=== PATIENT | male | born 1965 | race American Indian/Alaskan Native ===

== ENCOUNTER 2018-12-07 20:19 | Inpatient (IN) | payer MEDICARE ==
[2018-12-07 21:22] LABS: Hematocrit 38.2 % (35.5-45.6); Hemoglobin 12.6 gm/dl (11.8-15.2); Mean Corpuscular HGB Conc 33 % (32-34); Mean Corpuscular Volume 96 fl (84-94); Platelet Count 111 K/mm3 (140-440); Red Blood Count 3.98 M/mm3 (3.65-5.03); Red Cell Distribution Width 16.9 % (13.2-15.2)
[2018-12-07 21:39] LABS: Albumin 4.1 g/dL (3.9-5); Calcium 8.8 mg/dL (8.4-10.2)
[2018-12-07] MEDS ORDERED: PROVENTIL IH ONE (22:13)
[2018-12-07] MEDS ORDERED: APRESOLINE IV ONE (22:15)
[2018-12-07] MEDS ORDERED: KIONEX PO ONE (22:15)
[2018-12-07] MEDS ORDERED: LASIX IV ONE (22:15)
[2018-12-07] MEDS ORDERED: HumuLIN R IV ONE (22:15)
[2018-12-07] MEDS ORDERED: CALCIUM GLUCONATE 1,000 MG in NACL 0.9% 100 ML IV ONE (22:15)
[2018-12-07] MEDS ORDERED: D50W (25GM) Syringe IV ONE (22:15)
--- NOTE | 2018-12-07 22:20 | Emergency Department Report ---
ED General Adult HPI - General Chief complaint: Dyspnea/Respdistress Stated complaint: TIMOTHY Time Seen by Provider: 12/07/18 21:32 Source: patient, EMS (ems notes not available at time of chart dictation), RN notes reviewed Mode of arrival: Stretcher Limitations: Physical Limitation - History of Present Illness Initial comments: This is a 53-year-old gentleman. He does not known to this provider previously. The patient does not have a local primary care doctor or social services manager, he is visiting from [place]. His past medical history includes morbid obesity, sleep apnea, hypertension, end-stage renal disease on dialysis. He reports that he was last dialyzed this past Friday. It is currently Friday morning. He presented yesterday with a complaint of pain and the shortness of breath, wheezing, lower extremity edema. Symptoms constant, worse with physical exertion and decreased with rest. He also complains of chronic gluteal pain for 6-7 years. In the emergency room, found to be hypertensive, tachycardic, hyperkalemic, uremic, and azotemic. Potassium is noted to be 6. Blood pressure initially 218/140 systolic. Also found to have evidence of fluid overload, manifest by lower extremity edema, crackles, and hypoxia. Patient treated for hyperkalemia, fluid overload, and hypertensive urgency. Contacted nephrology on-call, Dr. Oconnor, who will arrange for urgent/emergent dialysis. Case presented to Hospital physician, Dr. Curiel, who has accepted the patient to the medical service. Explained that patient would need to be admitted to the hospital for blood pressure control, diuresis, and emergent dialysis for the above. The patient verbalized understanding. -: Gradual Location: buttocks, left, right, lower extremity Consistency: constant Improves with: rest Worsens with: movement - Related Data Allergies Allergy/AdvReac Type Severity Reaction Status Date / Time No Known Allergies Allergy Verified 12/07/18 22:19 ED Review of Systems ROS: Stated complaint: TIMOTHY Other details as noted in HPI Constitutional: denies: fever Eyes: denies: eye discharge ENT: congestion Respiratory: shortness of breath, wheezing Cardiovascular: edema Gastrointestinal: denies: vomiting Musculoskeletal: myalgia Skin: lesions (chronic gluteal lesion) Neurological: weakness Psychiatric: anxiety ED Past Medical Hx - Past Medical History Previous Medical History?: Yes Hx Hypertension: Yes Hx Diabetes: Yes Hx Renal Disease: Yes - Surgical History Past Surgical History?: Yes Additional Surgical History: dialysis access, Right knee surgery - Social History Smoking Status: Never Smoker Substance Use Type: None ED Physical Exam - General Limitations: No Limitations, Physical Limitation General appearance: alert, obese - Head Head exam: Present: atraumatic, normocephalic - Eye Eye exam: Present: normal appearance, EOMI. Absent: nystagmus - ENT ENT exam: Present: normal exam, normal orophraynx, mucous membranes moist, normal external ear exam - Neck Neck exam: Present: normal inspection, full ROM. Absent: tenderness, meningismus - Respiratory Respiratory exam: Present: respiratory distress, rales - Cardiovascular Cardiovascular Exam: Present: normal rhythm, tachycardia, normal heart sounds. Absent: systolic murmur, diastolic murmur, rubs, gallop - GI/Abdominal GI/Abdominal exam: Present: soft, distended. Absent: tenderness, guarding, rebound, rigid - Rectal Rectal exam: Present: normal inspection (there is a chronic appearing sacral wound, with no redness, pus or streaking. Chaperoned by nurse Alfred armas) - Extremities Exam Extremities exam: Present: normal inspection, full ROM, pedal edema, other (2+ pulses noted in the bilateral upper, lower extremities. Compartments soft. No long bony tenderness. The pelvis is stable.). Absent: tenderness, calf tenderness - Back Exam Back exam: Present: normal inspection, full ROM. Absent: tenderness, CVA tenderness (R), CVA tenderness (L), paraspinal tenderness, vertebral tenderness - Neurological Exam Neurological exam: Present: alert, other (Extraocular movements intact. Tongue midline. No facial droop. Facial sensation intact to light touch in the V1, V2, V3 distribution bilaterally. 5 and 5 strength in 4 extremities.. Sensation is intact to light touch in 4 extremities.). Absent: motor sensory deficit - Psychiatric Psychiatric exam: Present: normal affect, normal mood - Skin Skin exam: Present: warm, dry, intact, normal color. Absent: rash ED Course Vital Signs 12/07/18 21:16 Temperature 99.5 F Pulse Rate 92 H Respiratory 22 Rate Blood Pressure 173/94 [Right] O2 Sat by Pulse 94 Oximetry ED Medical Decision Making - Lab Data Result diagrams: 12/07/18 20:56 12/07/18 20:56 Vital Signs 12/07/18 21:16 Temperature 99.5 F Pulse Rate 92 H Respiratory 22 Rate Blood Pressure 173/94 [Right] O2 Sat by Pulse 94 Oximetry Lab Results 12/07/18 12/07/18 Range/Units 20:56 20:56 WBC 10.3 (4.5-11.0) K/mm3 RBC 3.98 (3.65-5.03) M/mm3 Hgb 12.6 (11.8-15.2) gm/dl Hct 38.2 (35.5-45.6) % MCV 96 H (84-94) fl MCH 32 (28-32) pg MCHC 33 (32-34) % RDW 16.9 H (13.2-15.2) % Plt Count 111 L (140-440) K/mm3 Lymph % (Auto) Remedial Reading Teacher [employer] % (Auto) Remedial Reading Teacher Eos % (Auto) Remedial Reading Teacher Baso % (Auto) Remedial Reading Teacher Lymph # Remedial Reading Teacher [employer] # Remedial Reading Teacher Eos # Remedial Reading Teacher Baso # Remedial Reading Teacher Seg Neutrophils % Remedial Reading Teacher Seg Neutrophils # Remedial Reading Teacher Sodium 136 L (137-145) mmol/L Potassium 6.0 H (3.6-5.0) mmol/L Chloride 93.7 L (98-107) mmol/L Carbon Dioxide 20 L (22-30) mmol/L Anion Gap 28 mmol/L BUN 57 H (9-20) mg/dL Creatinine 11.8 H (0.8-1.5) mg/dL Estimated GFR 5 ml/min BUN/Creatinine Ratio 5 % Glucose 164 H (75-100) mg/dL Calcium 8.8 (8.4-10.2) mg/dL Total Bilirubin 0.40 (0.1-1.2) mg/dL AST 21 (5-40) units/L ALT 19 (7-56) units/L Alkaline Phosphatase 92 (35-129) units/L Total Protein 8.8 H (6.3-8.2) g/dL Albumin 4.1 (3.9-5) g/dL Albumin/Globulin Ratio 0.9 % - EKG Data -: EKG Interpreted by Tn EKG shows normal: sinus rhythm Rate: tachycardia - EKG Data When compared to previous EKG there are: previous EKG unavailable 12/08/18 00:46 This is a sinus tachycardia, 108 bpm, normal axis, QTC 464 ms, atrial enlargement, poor r wave progression, the EKG is abnormal, the EKG is not consistent with ST elevation myocardial infarction - Radiology Data Radiology results: report reviewed, image reviewed Print Report Referring Physician: ANNALISE CROSS Patient Name: ALFRED RODRIGEZ Date of : 1965 Sex: Male Report Date: 2018-12-07 Report Status: Finalized Findings [facility] [address] [place] [address] XRay Report Signed Patient: ALFRED RODRIGEZ MR#: [id number] 53 : 1965 Acct:[id number] Age/Sex: 53 / M ADM Date: 12/07/18 Loc: ED Attending Dr: Ordering Physician: ANNALISE CROSS MD Date of Service: 12/07/18 Procedure(s): XR chest 1V ap Accession Number(s): [id number] cc: ANNALISE CROSS MD Fluoro Time In Minutes: CHEST 1 VIEW INDICATION: chf COMPARISON: None FINDINGS: Support devices: Right subclavian line projected over the superior vena cava. Heart: Mildly enlarged Lungs/Pleura: No acute pulmonary or pleural findings. IMPRESSION: 1. Mild cardiomegaly. Suboptimal inspiration, but no convincing evidence of pulmonary edema or other acute disease. Signer Name: David Schultz MD Signed: 12/07/2018 11:21 PM Workstation Name: [id number] Transcribed By: TM Dictated By: David Schultz MD Electronically Authenticated By: David Schultz MD Signed Date/Time: 12/07/18 2321 - Medical Decision Making Differential diagnosis, including not limited to: Hypertensive urgency, uremia, azotemia, pulmonary hypertension, obstructive sleep apnea, fluid overload Assessment and plan: 53-year-old gentleman with hyperkalemia, hypertensive urgency, physical exam evidence of fluid overload, requires admission to the medical service for diuresis, and medical optimization. Critical Care Time: Yes Critical care time in (mins) excluding proc time.: 35 Critical care attestation.: If time is entered above; I have spent that time in minutes in the direct care of this critically ill patient, excluding procedure time. ED Disposition Clinical Impression: ESRD (end stage renal disease), Acute hyperkalemia, Volume overload, Malignant hypertensive urgency Disposition: DC-09 OP ADMIT IP TO THIS HOSP Is pt being admited?: Yes Condition: Fair
[2018-12-07] MEDS ORDERED: NACL 0.9% 100 ML IV PRN (23:20)
[2018-12-07] MEDS ORDERED: ATIVAN IV ONE (23:21)
[2018-12-07] MEDS ORDERED: APRESOLINE IV PRN (23:21)
--- NOTE | 2018-12-07 23:22 | History and Physical Report ---
History of Present Illness Date of examination: 12/07/18 History of present illness: 53-year-old man a history of hypertension, diabetes, end-stage renal disease on dialysis Friday, Friday, Friday, seen emergency room complaining of shortness of breath and generalized swelling. The patient is from [place], last dialysis was Friday Review Of Systems: Constitutional: no weight loss, fever, chills Ears, eyes, nose, mouth and throat: no nasal congestion, no nasal discharge, no sinus pressure, blurry vision, diplopia Neck: No neck pain or rigidity. Cardiovascular: No palpitations, chest pain Respiratory: No cough Gastrointestinal: No hematochezia, abdominal pain Genitourinary : no dysuria, frequency , hematuria Musculoskeletal: no muscle ache , joint pain Integumentary: no rash, no pruritis Neurological: no parathesias, focal weakness Endocrine: no cold or heat intolerance, no polyuria or polydipsia Hematologic/Lymphatic: no easy bruising, no easy bleeding, no gland swelling Allergic/Immunologic: no urticaria, no angioedema. PAST MEDICAL HISTORY:hypertension, diabetes, end-stage renal disease PAST SURGICAL HISTORY: AV fistula, right knee FAMILY HISTORY:hypertension, diabetes SOCIAL HISTORY: Denies tobacco, drugs, alcohol Medications and Allergies Allergies Allergy/AdvReac Type Severity Reaction Status Date / Time No Known Allergies Allergy Verified 12/07/18 22:19 Active Meds: Active Medications Enoxaparin Sodium (Lovenox) 30 mg SUB-Q QDAY LOBO Hydralazine HCl (Apresoline) 5 mg IV Q6H PRN PRN Reason: Hypertension Sodium Chloride (Nacl 0.9%) 100 mls @ 999 mls/hr IV FARNAZ PRN PRN Reason: Hypotension Lorazepam (Ativan) 0.5 mg IV ONCE ONE Stop: 12/07/18 23:22 Exam - Physical Exam Narrative exam: General Apperance: The patient sitting in bed no acute distress HEENT: Normocephalic, atraumatic. Pupils equally round and reactive to light, extraocular movement intact, and no sclericterus or JVD or thyromegaly or nodule. Neck supple, no carotid bruit, mucous membranes moist, no exudate or erythema Heart: S1-S2, regular is rhythm Lungs: Clear to auscultation bilaterally, breathing comfortable Abdomen: Positive bowel sounds, soft, nontender, nondistended, no organomegaly Extremities: No edema cyanosis clubbing Skin: no rash, nodule, warm and dry Neuro:CN 2 -12 intact, motor/sensory intact, speech is fluent - Constitutional Vitals: Temp Pulse Resp BP Pulse Ox 99.5 F 92 H 22 173/94 94 12/07/18 21:16 12/07/18 21:16 12/07/18 21:16 12/07/18 21:16 12/07/18 21:16 Results - Labs CBC & Chem 7: 12/07/18 20:56 12/07/18 20:56 Labs: Abnormal lab results 12/07/18 12/07/18 Range/Units 20:56 20:56 MCV 96 H (84-94) fl RDW 16.9 H (13.2-15.2) % Plt Count 111 L (140-440) K/mm3 Sodium 136 L (137-145) mmol/L Potassium 6.0 H (3.6-5.0) mmol/L Chloride 93.7 L (98-107) mmol/L Carbon Dioxide 20 L (22-30) mmol/L BUN 57 H (9-20) mg/dL Creatinine 11.8 H (0.8-1.5) mg/dL Glucose 164 H (75-100) mg/dL Total Protein 8.8 H (6.3-8.2) g/dL - Imaging and Cardiology EKG: image reviewed Chest x-ray: report reviewed Assessment and Plan Assessment Fluid overload Hyperkalemia End-stage renal disease needing dialysis Diabetes Obesity Thrombocytopenia Plan Renal was consulted for emergent dialysis Status post Kayexalate, follow potassium Check fingersticks, initiate insulin sliding scale DVT prophylaxis
--- NOTE | 2018-12-07 23:25 | XRay Report ---
CHEST 1 VIEW INDICATION: chf COMPARISON: None FINDINGS: Support devices: Right subclavian line projected over the superior vena cava. Heart: Mildly enlarged Lungs/Pleura: No acute pulmonary or pleural findings. IMPRESSION: 1. Mild cardiomegaly. Suboptimal inspiration, but no convincing evidence of pulmonary edema or other acute disease. Signer Name: David Schultz MD Signed: 12/07/2018 11:21 PM Workstation Name: [id number]
[2018-12-08] MEDS ORDERED: ZOFRAN IV PRN (01:14)
[2018-12-08] MEDS ORDERED: SODIUM CHLORIDE FLUSH SYRINGE 10 ML IV PRN (01:14)
[2018-12-08] MEDS ORDERED: PROVENTIL IH ONE (01:53)
[2018-12-08 02:07] LABS: Hepatitis B Surface Antigen Non-Reactive (Negative); Hepatitis C Virus Antibody Non-Reactive (NonReactive)
[2018-12-08 07:47] LABS: Hematocrit 35.8 % (35.5-45.6); Hemoglobin 11.7 gm/dl (11.8-15.2); Mean Corpuscular HGB Conc 33 % (32-34); Mean Corpuscular Volume 97 fl (84-94); Red Blood Count 3.71 M/mm3 (3.65-5.03)
[2018-12-08 07:48] LABS: Platelet Count 96 K/mm3 (140-440)
[2018-12-08 08:09] LABS: Calcium 8.5 mg/dL (8.4-10.2)
[2018-12-08] MEDS: SODIUM CHLORIDE FLUSH SYRINGE 10 ML IV SCH ×2 (10:00→21:25)
[2018-12-08] MEDS ORDERED: LOVENOX SUB-Q SCH (10:00)
[2018-12-08 12:28] LABS: Basophils % (Manual) 0 % (0.0-1.8); Eosinophils % (Manual) 0 % (0.0-4.3); Total Cells Counted 100
--- NOTE | 2018-12-08 12:28 | Consultation ---
History of Present Illness - Reason for Consult Consult date: 12/08/18 end stage renal disease - History of Present Illness This is a 53 year old male who presented to the E.R yesterday with a chief complaint shortness of breath and swelling to lower extremities. On evaluation, patient was found to be Hyperkalemic with a potassium level of 6.0 and in Hypertensive emergency with SBP in the 200's. Urgent Hemodialysis was arranged for patient last night. Patient is visiting from [place] and was driving back to [facility] from [place] when he started to have shortness of breath and came to this E.R. Patient has ESRD and is on hemodialysis every M,,. Last HD prior to this admission was on Friday. We are being consulted for management of this patient's ESRD. Past History Past Medical History: diabetes, dialysis, ESRD, hypertension Social history: no significant social history Family history: no significant family history Medications and Allergies Allergies Allergy/AdvReac Type Severity Reaction Status Date / Time No Known Allergies Allergy Verified 12/07/18 22:19 Active Meds: Active Medications Acetaminophen (Tylenol) 650 mg PO Q4H PRN PRN Reason: Pain MILD(1-3)/Fever >100.5/GARCIA Hydralazine HCl (Apresoline) 5 mg IV Q6H PRN PRN Reason: Hypertension Sodium Chloride (Nacl 0.9%) 100 mls @ 999 mls/hr IV FARNAZ PRN PRN Reason: Hypotension Ondansetron HCl (Zofran) 4 mg IV Q8H PRN PRN Reason: Nausea And Vomiting Sodium Chloride (Sodium Chloride Flush Syringe 10 Ml) 10 ml IV BID LOBO Sodium Chloride (Sodium Chloride Flush Syringe 10 Ml) 10 ml IV PRN PRN PRN Reason: LINE FLUSH Review of Systems Constitutional: fatigue, chronic pain, no weight loss, no weight gain, no fever, no chills, no sweats Ears, nose, mouth and throat: no ear pain, no ear discharge, no tinnitis, no decreased hearing, no nose pain, no nasal congestion, no nasal discharge Cardiovascular: edema, shortness of breath, dyspnea on exertion, high blood pressure, leg edema, no chest pain, no orthopnea, no palpitations, no rapid /irregular heart beat Respiratory: shortness of breath, dyspnea on exertion Gastrointestinal: no nausea, no vomiting, no diarrhea, no constipation, no change in bowel habits Genitourinary Male: no hematuria, no flank pain, no discharge, no urinary frequency, no urinary hesitancy Musculoskeletal: no neck pain, no shooting arm pain, no arm numbness/tingling, no shooting leg pain Integumentary: no rash, no pruritis, no redness, no sores, no wounds Neurological: weakness, no numbness, no tingling, no seizures, no syncope, no tremors Psychiatric: no memory loss, no change in sleep habits, no sleep disturbances, no insomnia, no hypersomnia Endocrine: no cold intolerance, no heat intolerance, no polyphagia, no excessive thirst, no polydipsia Hematologic/Lymphatic: no easy bruising, no easy bleeding, no lymphadenopathy Exam - Vital Signs Vital signs: Vital Signs Temp Pulse Resp BP Pulse Ox 99.5 F 92 H 22 173/94 94 12/07/18 21:16 12/07/18 21:16 12/07/18 21:16 12/07/18 21:16 12/07/18 21:16 - General Appearance General appearance: well-developed, appears stated age, fatigue EENT: ATNC, PERRL, hearing intact, vision intact Neck: Present: neck supple, trachea midline Respiratory: Decreased Breath Sounds Heart: regular, S1S2 Gastrointestinal: Present: normoactive bowel sounds Integumentary: warm and dry Neurologic: alert and oriented x3 Musculoskeletal: Present: joint swelling, other (Has 2+ edema to BLE ) Psychiatric: mood/affect appropriate Results - Lab Results 12/08/18 07:06 12/08/18 07:06 Most recent lab results Calcium 8.5 mg/dL (8.4-10.2) 12/08/18 07:06 Assessment and Plan End Stage Renal Disease: Hyperkalemia: Volume overload: -S/P hemodialysis last night for UF and clearance -Hemodialysis again today for UF and clearance and hemodialysis tomorrow as well -Hyperkalemia- HD today and low K diet -Fluid restriction of 1 liter per day -CXR- no pulmonary edema -Renal diet/Dialysis diet -Obtain daily weights -Monitor I/O's -Assess dialysis needs daily -Likely can be discharged tomorrow after hemodialysis treatment tomorrow Hypertension: -UF with HD -On IV Hydralazine -Reconcile home meds Diabetes Mellitus: -As per primary team
[2018-12-08 12:29] LABS: Anisocytosis Few; Ovalocytes Rare; Platelet Estimate Consistent w Auto; Poikilocytosis Few
--- NOTE | 2018-12-08 14:41 | Progress Note ---
Assessment and Plan Assessment and plan: ESRD. Continue hemodialysis per nephrology. Volume overload. S/P hemodialysis last night for UF and clearance Hemodialysis again today for UF and clearance and hemodialysis tomorrow as well Fluid restriction of 1 liter per day CXR- no pulmonary edema Hyperkalemia. HD today and low K diet Hypertension -UF with HD -On IV Hydralazine -Reconcile home meds DM II Cont. SSRI and Accuchecks History Interval history: No new issues overnight. Patient complain of neuropathic pain. Hospitalist Physical - Constitutional Vitals: Temp Pulse Resp BP Pulse Ox 98.6 F 94 H 18 146/81 95 12/08/18 08:31 12/08/18 08:31 12/08/18 08:31 12/08/18 08:31 12/08/18 08:31 General appearance: Present: no acute distress, well-nourished - EENT Eyes: Present: PERRL, EOM intact ENT: hearing intact, clear oral mucosa, dentition normal - Neck Neck: Present: supple, normal ROM - Respiratory Respiratory effort: normal Respiratory: bilateral: CTA - Cardiovascular Rhythm: regular Heart Sounds: Present: S1 & S2. Absent: gallop, rub - Extremities Extremities: no ischemia, No edema, Full ROM - Abdominal General gastrointestinal: soft, non-tender, non-distended, normal bowel sounds - Integumentary Integumentary: Present: clear, warm, dry - Neurologic Neurologic: CNII-XII intact, moves all extremities Results - Labs CBC & Chem 7: 12/08/18 07:06 12/08/18 07:06 Labs: Laboratory Last Values WBC 19.5 K/mm3 (4.5-11.0) H 12/08/18 07:06 RBC 3.71 M/mm3 (3.65-5.03) 12/08/18 07:06 Hgb 11.7 gm/dl (11.8-15.2) L 12/08/18 07:06 Hct 35.8 % (35.5-45.6) 12/08/18 07:06 MCV 97 fl (84-94) H 12/08/18 07:06 MCH 32 pg (28-32) 12/08/18 07:06 MCHC 33 % (32-34) 12/08/18 07:06 RDW 17.0 % (13.2-15.2) H 12/08/18 07:06 Plt Count 96 K/mm3 (140-440) L 12/08/18 07:06 Lymph % (Auto) Financing Analyst 12/07/18 20:56 [place] % (Auto) Financing Analyst 12/07/18 20:56 Eos % (Auto) Financing Analyst 12/07/18 20:56 Baso % (Auto) Financing Analyst 12/07/18 20:56 Lymph # Financing Analyst 12/07/18 20:56 [place] # Financing Analyst 12/07/18 20:56 Eos # Financing Analyst 12/07/18 20:56 Baso # Financing Analyst 12/07/18 20:56 Add Manual Diff Complete 12/08/18 07:06 Total Counted 100 12/08/18 07:06 Seg Neutrophils % Financing Analyst 12/08/18 07:06 Seg Neuts % (Manual) 93.0 % (40.0-70.0) H 12/08/18 07:06 0 % 12/08/18 07:06 6.0 % (13.4-35.0) L 12/08/18 07:06 Reactive Lymphs % (Man) 0 % 12/08/18 07:06 1.0 % (0.0-7.3) 12/08/18 07:06 0 % (0.0-4.3) 12/08/18 07:06 0 % (0.0-1.8) 12/08/18 07:06 0 % 12/08/18 07:06 0 % 12/08/18 07:06 0 % 12/08/18 07:06 0 % 12/08/18 07:06 Nucleated RBC % Not Reportable 12/08/18 07:06 Seg Neutrophils # Financing Analyst 12/07/18 20:56 Seg Neutrophils # Man 18.1 K/mm3 (1.8-7.7) H 12/08/18 07:06 Band Neutrophils # 0.0 K/mm3 12/08/18 07:06 1.2 K/mm3 (1.2-5.4) 12/08/18 07:06 Abs React Lymphs (Man) 0.0 K/mm3 12/08/18 07:06 0.2 K/mm3 (0.0-0.8) 12/08/18 07:06 0.0 K/mm3 (0.0-0.4) 12/08/18 07:06 0.0 K/mm3 (0.0-0.1) 12/08/18 07:06 0.0 K/mm3 12/08/18 07:06 0.0 K/mm3 12/08/18 07:06 0.0 K/mm3 12/08/18 07:06 Blast Cells # 0.0 K/mm3 12/08/18 07:06 WBC Morphology Not Reportable 12/08/18 07:06 Hypersegmented Neuts Not Reportable 12/08/18 07:06 Hyposegmented Neuts Not Reportable 12/08/18 07:06 Hypogranular Neuts Not Reportable 12/08/18 07:06 Not Reportable 12/08/18 07:06 Not Reportable 12/08/18 07:06 Not Reportable 12/08/18 07:06 Not Reportable 12/08/18 07:06 Not Reportable 12/08/18 07:06 Not Reportable 12/08/18 07:06 Consistent w auto 12/08/18 07:06 Not Reportable 12/08/18 07:06 Plt Clumps, EDTA Not Reportable 12/08/18 07:06 Not Reportable 12/08/18 07:06 Not Reportable 12/08/18 07:06 Not Reportable 12/08/18 07:06 Plt Morphology Comment Not Reportable 12/08/18 07:06 RBC Morphology Not Reportable 12/08/18 07:06 Dimorphic RBCs Not Reportable 12/08/18 07:06 Not Reportable 12/08/18 07:06 Not Reportable 12/08/18 07:06 Few 12/08/18 07:06 Few 12/08/18 07:06 Not Reportable 12/08/18 07:06 Not Reportable 12/08/18 07:06 Not Reportable 12/08/18 07:06 Not Reportable 12/08/18 07:06 Not Reportable 12/08/18 07:06 Not Reportable 12/08/18 07:06 Not Reportable 12/08/18 07:06 Rare 12/08/18 07:06 Not Reportable 12/08/18 07:06 Not Reportable 12/08/18 07:06 Not Reportable 12/08/18 07:06 Not Reportable 12/08/18 07:06 Not Reportable 12/08/18 07:06 Not Reportable 12/08/18 07:06 Not Reportable 12/08/18 07:06 Acanthocytes (Spur) Not Reportable 12/08/18 07:06 Rouleaux Not Reportable 12/08/18 07:06 Not Reportable 12/08/18 07:06 Not Reportable 12/08/18 07:06 Not Reportable 12/08/18 07:06 Not Reportable 12/08/18 07:06 Hem Pathologist Commnt No 12/08/18 07:06 Sodium 139 mmol/L (137-145) 12/08/18 07:06 Potassium 5.6 mmol/L (3.6-5.0) H 12/08/18 07:06 Chloride 93.8 mmol/L (98-107) L 12/08/18 07:06 Carbon Dioxide 26 mmol/L (22-30) 12/08/18 07:06 25 mmol/L 12/08/18 07:06 BUN 41 mg/dL (9-20) H 12/08/18 07:06 10.1 mg/dL (0.8-1.5) H 12/08/18 07:06 Estimated GFR 7 ml/min 12/08/18 07:06 4 % 12/08/18 07:06 Glucose 146 mg/dL (75-100) H 12/08/18 07:06 8.4 % (4-6) H 12/08/18 07:06 Calcium 8.5 mg/dL (8.4-10.2) 12/08/18 07:06 0.40 mg/dL (0.1-1.2) 12/07/18 20:56 AST 21 units/L (5-40) 12/07/18 20:56 ALT 19 units/L (7-56) 12/07/18 20:56 92 units/L (35-129) 12/07/18 20:56 8.8 g/dL (6.3-8.2) H 12/07/18 20:56 4.1 g/dL (3.9-5) 12/07/18 20:56 0.9 % 12/07/18 20:56 Hepatitis A IgM Ab Non-reactive (NonReactive) 12/07/18 00:20 Hep Bs Antigen Non-reactive (Negative) 12/07/18 00:20 Hep B Core IgM Ab Non-reactive (NonReactive) 12/07/18 00:20 Non-reactive (NonReactive) 12/07/18 00:20 Active Medications - Current Medications Current Medications: Generic Name Dose Route Start Last Admin Trade Name Freq PRN Reason Stop Dose Admin Acetaminophen 650 mg 12/08/18 01:14 Tylenol PO Q4H PRN Pain MILD(1-3)/Fever >100.5/GARCIA Hydralazine HCl 5 mg 12/07/18 23:21 Apresoline IV Q6H PRN Hypertension Sodium Chloride 100 mls @ 999 mls/hr 12/07/18 23:20 Nacl 0.9% IV FARNAZ PRN Hypotension Ondansetron HCl 4 mg 12/08/18 01:14 Zofran IV Q8H PRN Nausea And Vomiting Sodium Chloride 10 ml 12/08/18 10:00 Sodium Chloride Flush Syringe 10 Ml IV BID LOBO Sodium Chloride 10 ml 12/08/18 01:14 Sodium Chloride Flush Syringe 10 Ml IV PRN PRN LINE FLUSH Nutrition/Malnutrition Assess - Dietary Evaluation Nutrition/Malnutrition Findings: Nutrition Notes Start: 12/08/18 12:14 Freq: Status: Active Protocol: Document 12/08/18 12:14 LP (Rec: 12/08/18 12:19 LP [id number]) Nutrition Notes Need for Assessment generated from: insurance agent Initial or Follow up Assessment Current Diagnosis CKD (stage V CKD),Diabetes, Hypertension Other Pertinent Diagnosis on HD Current Diet Renal consistent CHO Labs/Tests A1c 8.4 K 5.6 Pertinent Medications Reviewed Height 5 ft 10 in Weight 117.934 kg [place] Body Weight (kg) 75.45 BMI 37.3 Subjective/Other Information Screen for new DM. Pt DM not new. 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 Denies wt changes. Pt missed HD. 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 No Is Patient Ambulatory and/or Out of Bed Yes REE-([place] [facility]-ambulatory/OOB) [ 2626.767 NUTR.MSJOOB] Kcal/Kg value to use for calculation 20 Approximate Energy Requirements Using 2359 kcal/Kg Calculation Used for Recommendations Kcal/kg Additional Notes Protein needs are 103-120g (1. 2-1.4g/kg Adjusted wt 86kg) Fluis needs are 1000-1500ml Nutrition Intervention Change Diet Order: Continue Add Supplement/Snack (indicate name/kcal Nepro vanilla BID /protein ) Provides kCal: 950 Provides Protein (gm) 50 Goal #1 Meet at least 80% of kcal and protein needs Anticipated Discharge Needs: Renal consistent CHO with ONS daily to BID Follow-Up By: 12/10/18 Additional Comments Follow for intakes, ONS tolerance
[2018-12-08] MEDS: TYLENOL PO PRN (21:25)
[2018-12-09 06:23] LABS: Calcium 8.7 mg/dL (8.4-10.2)
[2018-12-09] MEDS ORDERED: ULTRAM PO PRN (11:25)
[2018-12-09] MEDS ORDERED: ACETAMINOPHEN PO PRN (11:25)
[2018-12-09] MEDS ORDERED: HYDROCODONE PO PRN (11:25)
[2018-12-09] MEDS: NORCO PO PRN ×2 (13:04→20:24)
[2018-12-09] MEDS: NEURONTIN PO SCH ×2 (13:04→21:44)
[2018-12-09] MEDS: SODIUM CHLORIDE FLUSH SYRINGE 10 ML IV SCH ×2 (13:05→21:44)
--- NOTE | 2018-12-09 13:48 | Progress Note ---
Assessment and Plan Assessment and plan: Sepsis. Patient with significant leukocytosis and fever. Started empiric antibiotics. Follow-up blood cultures and lactic acid level. ESRD. Continue hemodialysis per nephrology. Volume overload. S/P hemodialysis last night for UF and clearance Hemodialysis again today for UF and clearance and hemodialysis tomorrow as well Fluid restriction of 1 liter per day CXR- no pulmonary edema Hyperkalemia. HD today and low K diet Hypertension -UF with HD -On IV Hydralazine -Reconcile home meds DM II Cont. SSRI and Accuchecks History Interval history: No new issues overnight. Hospitalist Physical - Constitutional Vitals: Temp Pulse Resp BP Pulse Ox 99.9 F H 95 H 18 156/95 97 12/09/18 07:45 12/09/18 09:14 12/09/18 07:45 12/09/18 07:45 12/09/18 07:53 General appearance: Present: no acute distress, well-nourished - EENT Eyes: Present: PERRL, EOM intact ENT: hearing intact, clear oral mucosa, dentition normal - Neck Neck: Present: supple, normal ROM - Respiratory Respiratory effort: normal Respiratory: bilateral: CTA - Cardiovascular Rhythm: regular Heart Sounds: Present: S1 & S2. Absent: gallop, rub - Extremities Extremities: no ischemia, No edema, Full ROM - Abdominal General gastrointestinal: soft, non-tender, non-distended, normal bowel sounds - Integumentary Integumentary: Present: clear, warm, dry - Neurologic Neurologic: CNII-XII intact, moves all extremities Results - Labs CBC & Chem 7: 12/08/18 07:06 12/09/18 05:24 Labs: Laboratory Last Values WBC 19.5 K/mm3 (4.5-11.0) H 12/08/18 07:06 RBC 3.71 M/mm3 (3.65-5.03) 12/08/18 07:06 Hgb 11.7 gm/dl (11.8-15.2) L 12/08/18 07:06 Hct 35.8 % (35.5-45.6) 12/08/18 07:06 MCV 97 fl (84-94) H 12/08/18 07:06 MCH 32 pg (28-32) 12/08/18 07:06 MCHC 33 % (32-34) 12/08/18 07:06 RDW 17.0 % (13.2-15.2) H 12/08/18 07:06 Plt Count 96 K/mm3 (140-440) L 12/08/18 07:06 Lymph % (Auto) Environmental Service Aide 12/07/18 20:56 [place] % (Auto) Environmental Service Aide 12/07/18 20:56 Eos % (Auto) Environmental Service Aide 12/07/18 20:56 Baso % (Auto) Environmental Service Aide 12/07/18 20:56 Lymph # Environmental Service Aide 12/07/18 20:56 [place] # Environmental Service Aide 12/07/18 20:56 Eos # Environmental Service Aide 12/07/18 20:56 Baso # Environmental Service Aide 12/07/18 20:56 Add Manual Diff Complete 12/08/18 07:06 Total Counted 100 12/08/18 07:06 Seg Neutrophils % Environmental Service Aide 12/08/18 07:06 Seg Neuts % (Manual) 93.0 % (40.0-70.0) H 12/08/18 07:06 0 % 12/08/18 07:06 6.0 % (13.4-35.0) L 12/08/18 07:06 Reactive Lymphs % (Man) 0 % 12/08/18 07:06 1.0 % (0.0-7.3) 12/08/18 07:06 0 % (0.0-4.3) 12/08/18 07:06 0 % (0.0-1.8) 12/08/18 07:06 0 % 12/08/18 07:06 0 % 12/08/18 07:06 0 % 12/08/18 07:06 0 % 12/08/18 07:06 Nucleated RBC % Not Reportable 12/08/18 07:06 Seg Neutrophils # Environmental Service Aide 12/07/18 20:56 Seg Neutrophils # Man 18.1 K/mm3 (1.8-7.7) H 12/08/18 07:06 Band Neutrophils # 0.0 K/mm3 12/08/18 07:06 1.2 K/mm3 (1.2-5.4) 12/08/18 07:06 Abs React Lymphs (Man) 0.0 K/mm3 12/08/18 07:06 0.2 K/mm3 (0.0-0.8) 12/08/18 07:06 0.0 K/mm3 (0.0-0.4) 12/08/18 07:06 0.0 K/mm3 (0.0-0.1) 12/08/18 07:06 0.0 K/mm3 12/08/18 07:06 0.0 K/mm3 12/08/18 07:06 0.0 K/mm3 12/08/18 07:06 Blast Cells # 0.0 K/mm3 12/08/18 07:06 WBC Morphology Not Reportable 12/08/18 07:06 Hypersegmented Neuts Not Reportable 12/08/18 07:06 Hyposegmented Neuts Not Reportable 12/08/18 07:06 Hypogranular Neuts Not Reportable 12/08/18 07:06 Not Reportable 12/08/18 07:06 Not Reportable 12/08/18 07:06 Not Reportable 12/08/18 07:06 Not Reportable 12/08/18 07:06 Not Reportable 12/08/18 07:06 Not Reportable 12/08/18 07:06 Consistent w auto 12/08/18 07:06 Not Reportable 12/08/18 07:06 Plt Clumps, EDTA Not Reportable 12/08/18 07:06 Not Reportable 12/08/18 07:06 Not Reportable 12/08/18 07:06 Not Reportable 12/08/18 07:06 Plt Morphology Comment Not Reportable 12/08/18 07:06 RBC Morphology Not Reportable 12/08/18 07:06 Dimorphic RBCs Not Reportable 12/08/18 07:06 Not Reportable 12/08/18 07:06 Not Reportable 12/08/18 07:06 Few 12/08/18 07:06 Few 12/08/18 07:06 Not Reportable 12/08/18 07:06 Not Reportable 12/08/18 07:06 Not Reportable 12/08/18 07:06 Not Reportable 12/08/18 07:06 Not Reportable 12/08/18 07:06 Not Reportable 12/08/18 07:06 Not Reportable 12/08/18 07:06 Rare 12/08/18 07:06 Not Reportable 12/08/18 07:06 Not Reportable 12/08/18 07:06 Not Reportable 12/08/18 07:06 Not Reportable 12/08/18 07:06 Not Reportable 12/08/18 07:06 Not Reportable 12/08/18 07:06 Not Reportable 12/08/18 07:06 Acanthocytes (Spur) Not Reportable 12/08/18 07:06 Rouleaux Not Reportable 12/08/18 07:06 Not Reportable 12/08/18 07:06 Not Reportable 12/08/18 07:06 Not Reportable 12/08/18 07:06 Not Reportable 12/08/18 07:06 Hem Pathologist Commnt No 12/08/18 07:06 Sodium 135 mmol/L (137-145) L 12/09/18 05:24 Potassium 4.9 mmol/L (3.6-5.0) 12/09/18 05:24 Chloride 91.0 mmol/L (98-107) L 12/09/18 05:24 Carbon Dioxide 26 mmol/L (22-30) 12/09/18 05:24 23 mmol/L 12/09/18 05:24 BUN 32 mg/dL (9-20) H 12/09/18 05:24 8.6 mg/dL (0.8-1.5) H 12/09/18 05:24 Estimated GFR 8 ml/min 12/09/18 05:24 4 % 12/09/18 05:24 Glucose 208 mg/dL (75-100) H 12/09/18 05:24 8.4 % (4-6) H 12/08/18 07:06 Calcium 8.7 mg/dL (8.4-10.2) 12/09/18 05:24 0.40 mg/dL (0.1-1.2) 12/07/18 20:56 AST 21 units/L (5-40) 12/07/18 20:56 ALT 19 units/L (7-56) 12/07/18 20:56 92 units/L (35-129) 12/07/18 20:56 8.8 g/dL (6.3-8.2) H 12/07/18 20:56 4.1 g/dL (3.9-5) 12/07/18 20:56 0.9 % 12/07/18 20:56 Hepatitis A IgM Ab Non-reactive (NonReactive) 12/07/18 00:20 Hep Bs Antigen Non-reactive (Negative) 12/07/18 00:20 Hep B Core IgM Ab Non-reactive (NonReactive) 12/07/18 00:20 Non-reactive (NonReactive) 12/07/18 00:20 Active Medications - Current Medications Current Medications: Generic Name Dose Route Start Last Admin Trade Name Freq PRN Reason Stop Dose Admin Acetaminophen 650 mg 12/08/18 01:14 12/08/18 21:25 Tylenol PO 650 mg Q4H PRN Administration Pain MILD(1-3)/Fever >100.5/GARCIA Acetaminophen/Hydrocodone Bitart 7.5 mg 12/09/18 11:51 12/09/18 13:04 [place] PO 7.5 mg Q6H PRN Administration Pain, Moderate (4-6) Cinacalcet 30 mg 12/10/18 10:00 Sensipar PO DAILY [facility] Cyclobenzaprine HCl 10 mg 12/09/18 22:00 Flexeril PO BID LOBO Gabapentin 300 mg 12/09/18 14:00 12/09/18 13:04 Neurontin PO 300 mg Q8HR LOBO Administration Hydralazine HCl 5 mg 12/07/18 23:21 12/08/18 18:47 Apresoline IV 5 mg Q6H PRN Administration Hypertension Sodium Chloride 100 mls @ 999 mls/hr 12/07/18 23:20 Nacl 0.9% IV FARNAZ PRN Hypotension Levofloxacin/Dextrose 750 mg in 150 mls @ 100 mls/hr 12/10/18 10:00 Levaquin 750mg/150ml IV Q24HR [facility] Protocol Losartan Potassium 50 mg 12/10/18 10:00 Cozaar PO QDAY LOBO Ondansetron HCl 4 mg 12/08/18 01:14 Zofran IV Q8H PRN Nausea And Vomiting Sodium Chloride 10 ml 12/08/18 10:00 12/09/18 13:05 Sodium Chloride Flush Syringe 10 Ml IV 10 ml BID LOBO Administration Sodium Chloride 10 ml 12/08/18 01:14 Sodium Chloride Flush Syringe 10 Ml IV PRN PRN LINE FLUSH Tizanidine HCl 4 mg 12/10/18 10:00 Zanaflex PO DAILY [facility] Tramadol HCl 50 mg 12/09/18 11:25 Ultram PO Q6HR PRN Pain Nutrition/Malnutrition Assess - Dietary Evaluation Nutrition/Malnutrition Findings: Nutrition Notes Start: 12/08/18 12:14 Freq: Status: Active Protocol: Document 12/08/18 12:14 LP (Rec: 12/08/18 12:19 LP [id number]) Nutrition Notes Need for Assessment generated from: mohs surgeon Initial or Follow up Assessment Current Diagnosis CKD (stage V CKD),Diabetes, Hypertension Other Pertinent Diagnosis on HD Current Diet Renal consistent CHO Labs/Tests A1c 8.4 K 5.6 Pertinent Medications Reviewed Height 5 ft 10 in Weight 117.934 kg [place] Body Weight (kg) 75.45 BMI 37.3 Subjective/Other Information Screen for new DM. Pt DM not new. 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 Denies wt changes. Pt missed HD. 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 No Is Patient Ambulatory and/or Out of Bed Yes REE-([place]-ambulatory/OOB) [ 2626.767 NUTR.MSJOOB] Kcal/Kg value to use for calculation 20 Approximate Energy Requirements Using 2359 kcal/Kg Calculation Used for Recommendations Kcal/kg Additional Notes Protein needs are 103-120g (1. 2-1.4g/kg Adjusted wt 86kg) Fluis needs are 1000-1500ml Nutrition Intervention Change Diet Order: Continue Add Supplement/Snack (indicate name/kcal Nepro vanilla BID /protein ) Provides kCal: 950 Provides Protein (gm) 50 Goal #1 Meet at least 80% of kcal and protein needs Anticipated Discharge Needs: Renal consistent CHO with ONS daily to BID Follow-Up By: 12/10/18 Additional Comments Follow for intakes, ONS tolerance
--- NOTE | 2018-12-09 14:01 | Progress Note ---
Assessment and Plan End Stage Renal Disease: Hyperkalemia: Volume overload: -Hemodialysis again today for UF and clearance -Fluid restriction of 1 liter per day -Renal diet/Dialysis diet -Obtain daily weights -Monitor I/O's -Assess dialysis needs daily Leukocytosis/Febrile: -Blood culture showed gram positive cocci -On Levaquin -As per primary team Hypertension: -UF with HD -On IV Hydralazine -Reconcile home meds Diabetes Mellitus: -As per primary team Subjective Date of service: 12/09/18 Principal diagnosis: ESRD Interval history: Patient seen in dialysis unit. Tolerating HD well. Objective - Vital Signs Vital signs: Vital Signs - 12hr 12/09/18 12/09/18 12/09/18 03:08 07:45 07:53 Temperature 100.1 F H 99.9 F H Pulse Rate 94 H 101 H Respiratory 19 18 Rate Blood Pressure 166/94 156/95 O2 Sat by Pulse 95 94 97 Oximetry 12/09/18 09:14 Temperature Pulse Rate 95 H Respiratory Rate Blood Pressure O2 Sat by Pulse Oximetry - General Appearance General appearance: well-developed, appears stated age, fatigue EENT: ATNC, PERRL, hearing intact, vision intact Neck: no JVD, supple Respiratory: Present: Decreased Breath Sounds Cardiology: S1S2 Gastrointestinal: normoactive bowel sounds Integumentary: warm and dry Neurologic: alert and oriented x3 Musculoskeletal: other (1-2+ edema to BLE) Psychiatric: mood/affect appropriate - Lab 12/08/18 07:06 12/09/18 05:24 Most recent lab results Calcium 8.7 mg/dL (8.4-10.2) 12/09/18 05:24 Medications & Allergies - Medications Allergies/Adverse Reactions: Allergies No Known Allergies Allergy (Verified 12/07/18 22:19) Home Medications: Home Medications Medication Instructions Recorded Confirmed Last Taken Type tiZANidine [Zanaflex 4mg TAB] 4 mg PO DAILY 12/08/18 12/09/18 Unknown History traMADol [Ultram] 50 mg PO Q6HR PRN 12/08/18 12/09/18 Unknown History Cinacalcet HCl [Sensipar] 30 mg PO DAILY 12/09/18 12/09/18 Unknown History Cyclobenzaprine [Flexeril 10 MG 10 mg PO BID 12/09/18 12/09/18 Unknown History TAB] Gabapentin [Neurontin] 300 mg PO Q8HR 12/09/18 12/09/18 2 Days Ago History ~12/07/18 Hydrocodone-Acetamn 7.5-325/15 7.5 mg PO Q6H PRN 12/09/18 12/09/18 Unknown History Losartan Potassium 100 mg PO DAILY 12/09/18 12/09/18 Unknown History Active Medications: Generic Name Dose Route Start Last Admin Trade Name Freq PRN Reason Stop Dose Admin Acetaminophen 650 mg 12/08/18 01:14 12/08/18 21:25 Tylenol PO 650 mg Q4H PRN Administration Pain MILD(1-3)/Fever >100.5/GARCIA Acetaminophen/Hydrocodone Bitart 7.5 mg 12/09/18 11:51 12/09/18 13:04 [place] PO 7.5 mg Q6H PRN Administration Pain, Moderate (4-6) Cinacalcet 30 mg 12/10/18 10:00 Sensipar PO DAILY LOBO Cyclobenzaprine HCl 10 mg 12/09/18 22:00 Flexeril PO BID LOBO Gabapentin 300 mg 12/09/18 14:00 12/09/18 13:04 Neurontin PO 300 mg Q8HR LOBO Administration Hydralazine HCl 5 mg 12/07/18 23:21 12/08/18 18:47 Apresoline IV 5 mg Q6H PRN Administration Hypertension Sodium Chloride 100 mls @ 999 mls/hr 12/07/18 23:20 Nacl 0.9% IV FARNAZ PRN Hypotension Levofloxacin/Dextrose 750 mg in 150 mls @ 100 mls/hr 12/10/18 10:00 Levaquin 750mg/150ml IV Q24HR [facility] Protocol Losartan Potassium 50 mg 12/10/18 10:00 Cozaar PO QDAY LOBO Ondansetron HCl 4 mg 12/08/18 01:14 Zofran IV Q8H PRN Nausea And Vomiting Sodium Chloride 10 ml 12/08/18 10:00 12/09/18 13:05 Sodium Chloride Flush Syringe 10 Ml IV 10 ml BID LOBO Administration Sodium Chloride 10 ml 12/08/18 01:14 Sodium Chloride Flush Syringe 10 Ml IV PRN PRN LINE FLUSH Tizanidine HCl 4 mg 12/10/18 10:00 Zanaflex PO DAILY [facility] Tramadol HCl 50 mg 12/09/18 11:25 Ultram PO Q6HR PRN Pain
[2018-12-09] MEDS: TYLENOL PO PRN (20:26)
[2018-12-09] MEDS: FLEXERIL PO SCH (21:44)
[2018-12-09] MEDS ORDERED: VANCOMYCIN/NS 1 GM/250 ML 1 GM/250 ML BAG IV ONE (21:45)
[2018-12-09] MEDS ORDERED: VANCOMYCIN PHARMACY TO DOSE IV SCH (22:00)
[2018-12-09] MEDS ORDERED: VANCOMYCIN 1,750 MG in NACL 0.9% 500 ML 500 ML IV ONE (22:00)
[2018-12-10] MEDS: NEURONTIN PO SCH ×3 (04:59→21:39)
[2018-12-10] MEDS: TYLENOL PO PRN ×2 (05:02→21:39)
[2018-12-10 06:55] LABS: Basophils % (Auto) 0.2 % (0.0-1.8); Hemoglobin 11.3 gm/dl (11.8-15.2); Lymphocytes # (Auto) 0.6 K/mm3 (1.2-5.4); Lymphocytes % (Auto) 4.6 % (13.4-35.0); Mean Corpuscular HGB Conc 32 % (32-34); Mean Corpuscular Volume 98 fl (84-94); Monocytes # (Auto) 1.3 K/mm3 (0.0-0.8); Monocytes % (Auto) 10.3 % (0.0-7.3); Red Blood Count 3.59 M/mm3 (3.65-5.03); Red Cell Distribution Width 17.3 % (13.2-15.2)
[2018-12-10 07:01] LABS: Platelet Count 73 K/mm3 (140-440)
[2018-12-10 07:14] LABS: Calcium 8.4 mg/dL (8.4-10.2)
--- NOTE | 2018-12-10 09:34 | Progress Note ---
Assessment and Plan End Stage Renal Disease: Hyperkalemia: Volume overload: -no indication for HD today - scheduled for HD tomorrow as an outpatient -Fluid restriction of 1 liter per day -Renal diet/Dialysis diet -Obtain daily weights -Monitor I/O's -Assess dialysis needs daily Leukocytosis/Febrile: -Blood culture showed gram positive cocci -On Levaquin -As per primary team Hypertension: -On IV Hydralazine -Reconcile home meds Diabetes Mellitus: -As per primary team Jose Elias Velásquez MD [phone] Subjective Date of service: 12/10/18 Principal diagnosis: ESRD Interval history: tolerated HD yesterday, ready to go home Objective - Vital Signs Vital signs: Vital Signs - 12hr 12/09/18 12/09/18 12/09/18 22:00 23:00 23:02 Temperature 99.8 F H Pulse Rate 107 H Respiratory 20 Rate Blood Pressure 115/32 O2 Sat by Pulse 98 95 89 Oximetry 12/10/18 12/10/18 12/10/18 03:47 05:25 08:00 Temperature 100.1 F H 99.8 F H Pulse Rate 105 H 105 H 97 H Respiratory 20 18 Rate Blood Pressure 100/36 119/65 O2 Sat by Pulse 99 96 Oximetry - General Appearance General appearance: well-developed, well-nourished, appears stated age EENT: ATNC, PERRL, mucous membranes moist Neck: no JVD, no carotid bruit Respiratory: Present: Clear to Ascultation. Absent: Rales, Ronchi Cardiology: regular, S1S2 Gastrointestinal: normoactive bowel sounds, no tenderness, no distended Integumentary: no rash, warm and dry Neurologic: no focal deficit, no asterixis, alert and oriented x3 Musculoskeletal: other (trace piotting edema in BLE) Psychiatric: mood/affect appropriate, cooperative - Lab 12/10/18 06:33 12/10/18 06:33 Most recent lab results Calcium 8.4 mg/dL (8.4-10.2) 12/10/18 06:33 Medications & Allergies - Medications Allergies/Adverse Reactions: Allergies No Known Allergies Allergy (Verified 12/07/18 22:19) Home Medications: Home Medications Medication Instructions Recorded Confirmed Last Taken Type tiZANidine [Zanaflex 4mg TAB] 4 mg PO DAILY 12/08/18 12/09/18 Unknown History traMADol [Ultram] 50 mg PO Q6HR PRN 12/08/18 12/09/18 Unknown History Cinacalcet HCl [Sensipar] 30 mg PO DAILY 12/09/18 12/09/18 Unknown History Cyclobenzaprine [Flexeril 10 MG 10 mg PO BID 12/09/18 12/09/18 Unknown History TAB] Gabapentin [Neurontin] 300 mg PO Q8HR 12/09/18 12/09/18 2 Days Ago History ~12/07/18 Hydrocodone-Acetamn 7.5-325/15 7.5 mg PO Q6H PRN 12/09/18 12/09/18 Unknown History Losartan Potassium 100 mg PO DAILY 12/09/18 12/09/18 Unknown History Active Medications: Generic Name Dose Route Start Last Admin Trade Name Freq PRN Reason Stop Dose Admin Acetaminophen 650 mg 12/08/18 01:14 12/10/18 05:02 Tylenol PO 650 mg Q4H PRN Administration Pain MILD(1-3)/Fever >100.5/GARCIA Acetaminophen/Hydrocodone Bitart 7.5 mg 12/09/18 11:51 12/09/18 20:24 [place] PO 7.5 mg Q6H PRN Administration Pain, Moderate (4-6) Cinacalcet 30 mg 12/10/18 10:00 Sensipar PO DAILY LOBO Cyclobenzaprine HCl 10 mg 12/09/18 22:00 12/09/18 21:44 Flexeril PO 10 mg BID LOBO Administration Gabapentin 300 mg 12/09/18 14:00 12/10/18 04:59 Neurontin PO 300 mg Q8HR LOBO Administration Hydralazine HCl 5 mg 12/07/18 23:21 12/08/18 18:47 Apresoline IV 5 mg Q6H PRN Administration Hypertension Sodium Chloride 100 mls @ 999 mls/hr 12/07/18 23:20 Nacl 0.9% IV FARNAZ PRN Hypotension Levofloxacin/Dextrose 750 mg in 150 mls @ 100 mls/hr 12/10/18 10:00 Levaquin 750mg/150ml IV 12/10/18 11:29 ONCE ONE Protocol Levofloxacin/Dextrose 500 mg in 100 mls @ 100 mls/hr 12/12/18 10:00 Levaquin 500mg/100ml IV Q48HR LOBO Protocol Losartan Potassium 50 mg 12/10/18 10:00 Cozaar PO QDAY LOBO Ondansetron HCl 4 mg 12/08/18 01:14 Zofran IV Q8H PRN Nausea And Vomiting Sodium Chloride 10 ml 12/08/18 10:00 12/09/18 21:44 Sodium Chloride Flush Syringe 10 Ml IV 10 ml BID LOBO Administration Sodium Chloride 10 ml 12/08/18 01:14 Sodium Chloride Flush Syringe 10 Ml IV PRN PRN LINE FLUSH Tizanidine HCl 4 mg 12/10/18 10:00 Zanaflex PO DAILY [facility] Tramadol HCl 50 mg 12/09/18 11:25 Ultram PO Q6HR PRN Pain
[2018-12-10] MEDS: FLEXERIL PO SCH ×2 (09:41→21:39)
[2018-12-10] MEDS: COZAAR PO SCH (09:41)
[2018-12-10] MEDS: SENSIPAR PO SCH (09:41)
[2018-12-10] MEDS: ZANAFLEX PO SCH (09:41)
[2018-12-10] MEDS: SODIUM CHLORIDE FLUSH SYRINGE 10 ML IV SCH ×2 (09:42→22:18)
[2018-12-10] MEDS: NORCO PO PRN (09:42)
[2018-12-10] MEDS ORDERED: LEVAQUIN 750MG/150ML 750 MG/150 ML BAG IV SCH (10:00)
[2018-12-10] MEDS ORDERED: NON-FORMULARY (Losartan Potassium [Losartan Potassium] 100 MG) PO SCH (10:00)
[2018-12-10] MEDS ORDERED: LEVAQUIN 750MG/150ML 750 MG/150 ML BAG IV ONE (10:00)
--- NOTE | 2018-12-10 10:34 | Consultation ---
History of Present Illness - Reason for Consult Consult date: 12/10/18 - History of Present Illness 53 yo M PMHx DM2, HTN, ESRD on HD who initially presented with SOB and edema after missing some dialysis. He notes the symptoms began over the past few days, and that his last dialysis was last Friday. He denied fevers, sweats, chills prior to admission, and also denied any cough or productive cough. He otherwise has no complaints. He was difficult to rouse today when I saw him, but he asked appropriate questions. He notes feeling better than on admission. Tmax during admission to 102.8 with a white count of initially 19 which has since improved to 12. His CXR was significant for cardiomegaly, but no obvious evidence of pneumonia. Blood cultures are positive for Group C Strep in 2/4 bottles, pending sensitivities. Past History Past Medical History: diabetes, dialysis, ESRD, hypertension Past Surgical History: No surgical history Social history: no significant social history. denies: smoking, alcohol abuse Family history: diabetes Medications and Allergies Allergies Allergy/AdvReac Type Severity Reaction Status Date / Time No Known Allergies Allergy Verified 12/07/18 22:19 Home Medications Medication Instructions Recorded Confirmed Last Taken Type tiZANidine [Zanaflex 4mg TAB] 4 mg PO DAILY 12/08/18 12/09/18 Unknown History traMADol [Ultram] 50 mg PO Q6HR PRN 12/08/18 12/09/18 Unknown History Cinacalcet HCl [Sensipar] 30 mg PO DAILY 12/09/18 12/09/18 Unknown History Cyclobenzaprine [Flexeril 10 MG 10 mg PO BID 12/09/18 12/09/18 Unknown History TAB] Gabapentin [Neurontin] 300 mg PO Q8HR 12/09/18 12/09/18 2 Days Ago History ~12/07/18 Hydrocodone-Acetamn 7.5-325/15 7.5 mg PO Q6H PRN 12/09/18 12/09/18 Unknown History Losartan Potassium 100 mg PO DAILY 12/09/18 12/09/18 Unknown History Active Meds: Active Medications Acetaminophen (Tylenol) 650 mg PO Q4H PRN PRN Reason: Pain MILD(1-3)/Fever >100.5/GARCIA Last Admin: 12/10/18 05:02 Dose: 650 mg Documented by: Acetaminophen/Hydrocodone Bitart ([place]) 7.5 mg PO Q6H PRN PRN Reason: Pain, Moderate (4-6) Last Admin: 12/10/18 09:42 Dose: 7.5 mg Documented by: Cinacalcet (Sensipar) 30 mg PO DAILY [facility] Last Admin: 12/10/18 09:41 Dose: 30 mg Documented by: Cyclobenzaprine HCl (Flexeril) 10 mg PO BID [facility] Last Admin: 12/10/18 09:41 Dose: 10 mg Documented by: Gabapentin (Neurontin) 300 mg PO Q8HR [facility] Last Admin: 12/10/18 04:59 Dose: 300 mg Documented by: Hydralazine HCl (Apresoline) 5 mg IV Q6H PRN PRN Reason: Hypertension Last Admin: 12/08/18 18:47 Dose: 5 mg Documented by: Sodium Chloride (Nacl 0.9%) 100 mls @ 999 mls/hr IV FARNAZ PRN PRN Reason: Hypotension Levofloxacin/Dextrose (Levaquin 750mg/150ml) 750 mg in 150 mls @ 100 mls/hr IV ONCE ONE; Protocol Stop: 12/10/18 11:29 Last Admin: 12/10/18 09:42 Dose: 100 mls/hr Documented by: Levofloxacin/Dextrose (Levaquin 500mg/100ml) 500 mg in 100 mls @ 100 mls/hr IV Q48HR [facility]; Protocol Losartan Potassium (Cozaar) 50 mg PO QDAY [facility] Last Admin: 12/10/18 09:41 Dose: 50 mg Documented by: Ondansetron HCl (Zofran) 4 mg IV Q8H PRN PRN Reason: Nausea And Vomiting Sodium Chloride (Sodium Chloride Flush Syringe 10 Ml) 10 ml IV BID [facility] Last Admin: 12/10/18 09:42 Dose: 10 ml Documented by: Sodium Chloride (Sodium Chloride Flush Syringe 10 Ml) 10 ml IV PRN PRN PRN Reason: LINE FLUSH Tizanidine HCl (Zanaflex) 4 mg PO DAILY [facility] Last Admin: 12/10/18 09:41 Dose: 4 mg Documented by: Tramadol HCl (Ultram) 50 mg PO Q6HR PRN PRN Reason: Pain Review of Systems Constitutional: no weight loss, no weight gain, no fever, no chills, no sweats Ears, nose, mouth and throat: no sinus pain, no dysphagia, no sore throat Cardiovascular: edema, no chest pain, no orthopnea, no palpitations Respiratory: shortness of breath, no cough, no wheezing Gastrointestinal: no abdominal pain, no nausea, no vomiting, no diarrhea Genitourinary Male: no dysuria, no discharge, no urinary frequency Musculoskeletal: no low back pain, no shooting leg pain, no redness of joints Integumentary: no redness, no sores, no wounds Neurological: no weakness, no numbness, no syncope Endocrine: no polydipsia, no polyuria, no nocturia Hematologic/Lymphatic: no easy bruising, no easy bleeding, no lymphadenopathy Physical Examination - Physical Exam Narrative exam: Constitutional: awake, no distress, following commands Head, Ears, Nose: Normocephalic, atraumatic. External ears, nose normal Eyes: Conjunctivae/corneas clear. No icterus. No ptosis. Neck: Supple, no meningeal signs Oral: fair dentition, moist mucous membranes Cardiovascular: S1, S2 normal. Normal rhythm Respiratory: Good air entry, clear to auscultation bilaterally GI: Soft, non-tender; bowel sounds normal. No peritoneal signs Musculoskeletal: No pedal edema, Skin: No rash or abscess Hem/Lymphatic: No palpable cervical or supraclavicular nodes. No lymphangitis Psych: no agitation Neurological: Moves all extremities, no focal defects - Constitutional Vitals: Vital Signs Temp Pulse Resp BP Pulse Ox 99.8 F H 97 H 18 119/65 96 12/10/18 08:00 12/10/18 09:41 12/10/18 08:00 12/10/18 09:41 12/10/18 08:00 Temperature -Last 24 Hours Temperature 99.8 F Temperature 100.1 F Temperature 99.8 F Temperature 102.8 F Temperature 98.8 F Temperature 98.2 F Temperature 100.0 F Results - Labs CBC & Chem 7: 12/10/18 06:33 12/10/18 06:33 Labs: Abnormal lab results 12/10/18 12/10/18 Range/Units 06:33 06:33 WBC 12.3 H (4.5-11.0) K/mm3 RBC 3.59 L (3.65-5.03) M/mm3 Hgb 11.3 L (11.8-15.2) gm/dl Hct 35.0 L (35.5-45.6) % MCV 98 H (84-94) fl RDW 17.3 H (13.2-15.2) % Plt Count 73 L (140-440) K/mm3 Lymph % (Auto) 4.6 L (13.4-35.0) % Person % (Auto) 10.3 H (0.0-7.3) % Lymph # 0.6 L (1.2-5.4) K/mm3 Person # 1.3 H (0.0-0.8) K/mm3 Seg Neutrophils % 84.9 H (40.0-70.0) % Seg Neutrophils # 10.5 H (1.8-7.7) K/mm3 Sodium 132 L (137-145) mmol/L Chloride 90.5 L (98-107) mmol/L BUN 31 H (9-20) mg/dL Creatinine 8.3 H (0.8-1.5) mg/dL Glucose 282 H (75-100) mg/dL - Imaging and Cardiology Chest x-ray: image reviewed Assessment and Plan Cultures: 12/08 BCX - Group C Strep 06/08 A/P: 53 yo M PMHx HTN, DM2, ESRD on HD admitted with SOB and edema, found to be bacteremic. 1. Sepsis secondary to Group C strep bacteremia - unclear source of bacteremia at this point, possible from lungs via obscured pneumonia. Would stop levofloxacin and start ceftriaxone. Obtain repeat blood cultures to document clearance. Obtain echo to rule out endocariditis. 2. Edema - secondary to missed dialysis 3. HTN 4. DM2 5. ESRD on HD Recs: - stop levofloxacin - start ceftriaxone 2g q24h - obtain echocardiogram - repeat cultures in AM Thank you for the consult, we will continue to follow along. MD David [facility] C: [phone] O: [phone] F: [phone]
--- NOTE | 2018-12-10 11:56 | Progress Note ---
Assessment and Plan Assessment and plan: Sepsis. Etiology secondary to group C strep bacteremia. ID following. Rocephin started. Obtain repeat blood cultures to document clearance. Obtain echo to rule out endocariditis. Lactic acid normal. Group C strep bacteremia. As above. ESRD. Continue hemodialysis per nephrology. Volume overload. S/P hemodialysis last night for UF and clearance Hemodialysis again today for UF and clearance and hemodialysis tomorrow as well Fluid restriction of 1 liter per day CXR- no pulmonary edema Hyperkalemia. HD today and low K diet Hypertension -UF with HD -On IV Hydralazine -Reconcile home meds DM II Cont. SSRI and Accuchecks History Interval history: No new issues overnight. Hospitalist Physical - Constitutional Vitals: Temp Pulse Resp BP Pulse Ox 99.8 F H 97 H 18 119/65 96 12/10/18 08:00 12/10/18 09:41 12/10/18 08:00 12/10/18 09:41 12/10/18 08:00 General appearance: Present: no acute distress, well-nourished - EENT Eyes: Present: PERRL, EOM intact ENT: hearing intact, clear oral mucosa, dentition normal - Neck Neck: Present: supple, normal ROM - Respiratory Respiratory effort: normal Respiratory: bilateral: CTA - Cardiovascular Rhythm: regular Heart Sounds: Present: S1 & S2. Absent: gallop, rub - Extremities Extremities: no ischemia, No edema, Full ROM - Abdominal General gastrointestinal: soft, non-tender, non-distended, normal bowel sounds - Integumentary Integumentary: Present: clear, warm, dry - Neurologic Neurologic: CNII-XII intact, moves all extremities Results - Labs CBC & Chem 7: 12/10/18 06:33 12/10/18 06:33 Labs: Laboratory Last Values WBC 12.3 K/mm3 (4.5-11.0) H 12/10/18 06:33 RBC 3.59 M/mm3 (3.65-5.03) L 12/10/18 06:33 Hgb 11.3 gm/dl (11.8-15.2) L 12/10/18 06:33 Hct 35.0 % (35.5-45.6) L 12/10/18 06:33 MCV 98 fl (84-94) H 12/10/18 06:33 MCH 32 pg (28-32) 12/10/18 06:33 MCHC 32 % (32-34) 12/10/18 06:33 RDW 17.3 % (13.2-15.2) H 12/10/18 06:33 Plt Count 73 K/mm3 (140-440) L 12/10/18 06:33 Lymph % (Auto) 4.6 % (13.4-35.0) L 12/10/18 06:33 [place] % (Auto) 10.3 % (0.0-7.3) H 12/10/18 06:33 Eos % (Auto) 0.0 % (0.0-4.3) 12/10/18 06:33 Baso % (Auto) 0.2 % (0.0-1.8) 12/10/18 06:33 Lymph # 0.6 K/mm3 (1.2-5.4) L 12/10/18 06:33 [place] # 1.3 K/mm3 (0.0-0.8) H 12/10/18 06:33 Eos # 0.0 K/mm3 (0.0-0.4) 12/10/18 06:33 Baso # 0.0 K/mm3 (0.0-0.1) 12/10/18 06:33 Add Manual Diff Complete 12/08/18 07:06 Total Counted 100 12/08/18 07:06 Seg Neutrophils % 84.9 % (40.0-70.0) H 12/10/18 06:33 Seg Neuts % (Manual) 93.0 % (40.0-70.0) H 12/08/18 07:06 0 % 12/08/18 07:06 6.0 % (13.4-35.0) L 12/08/18 07:06 Reactive Lymphs % (Man) 0 % 12/08/18 07:06 1.0 % (0.0-7.3) 12/08/18 07:06 0 % (0.0-4.3) 12/08/18 07:06 0 % (0.0-1.8) 12/08/18 07:06 0 % 12/08/18 07:06 0 % 12/08/18 07:06 0 % 12/08/18 07:06 0 % 12/08/18 07:06 Nucleated RBC % Not Reportable 12/08/18 07:06 Seg Neutrophils # 10.5 K/mm3 (1.8-7.7) H 12/10/18 06:33 Seg Neutrophils # Man 18.1 K/mm3 (1.8-7.7) H 12/08/18 07:06 Band Neutrophils # 0.0 K/mm3 12/08/18 07:06 1.2 K/mm3 (1.2-5.4) 12/08/18 07:06 Abs React Lymphs (Man) 0.0 K/mm3 12/08/18 07:06 0.2 K/mm3 (0.0-0.8) 12/08/18 07:06 0.0 K/mm3 (0.0-0.4) 12/08/18 07:06 0.0 K/mm3 (0.0-0.1) 12/08/18 07:06 0.0 K/mm3 12/08/18 07:06 0.0 K/mm3 12/08/18 07:06 0.0 K/mm3 12/08/18 07:06 Blast Cells # 0.0 K/mm3 12/08/18 07:06 WBC Morphology Not Reportable 12/08/18 07:06 Hypersegmented Neuts Not Reportable 12/08/18 07:06 Hyposegmented Neuts Not Reportable 12/08/18 07:06 Hypogranular Neuts Not Reportable 12/08/18 07:06 Not Reportable 12/08/18 07:06 Not Reportable 12/08/18 07:06 Not Reportable 12/08/18 07:06 Not Reportable 12/08/18 07:06 Not Reportable 12/08/18 07:06 Not Reportable 12/08/18 07:06 Consistent w auto 12/08/18 07:06 Not Reportable 12/08/18 07:06 Plt Clumps, EDTA Not Reportable 12/08/18 07:06 Not Reportable 12/08/18 07:06 Not Reportable 12/08/18 07:06 Not Reportable 12/08/18 07:06 Plt Morphology Comment Not Reportable 12/08/18 07:06 RBC Morphology Not Reportable 12/08/18 07:06 Dimorphic RBCs Not Reportable 12/08/18 07:06 Not Reportable 12/08/18 07:06 Not Reportable 12/08/18 07:06 Few 12/08/18 07:06 Few 12/08/18 07:06 Not Reportable 12/08/18 07:06 Not Reportable 12/08/18 07:06 Not Reportable 12/08/18 07:06 Not Reportable 12/08/18 07:06 Not Reportable 12/08/18 07:06 Not Reportable 12/08/18 07:06 Not Reportable 12/08/18 07:06 Rare 12/08/18 07:06 Not Reportable 12/08/18 07:06 Not Reportable 12/08/18 07:06 Not Reportable 12/08/18 07:06 Not Reportable 12/08/18 07:06 Not Reportable 12/08/18 07:06 Not Reportable 12/08/18 07:06 Not Reportable 12/08/18 07:06 Acanthocytes (Spur) Not Reportable 12/08/18 07:06 Rouleaux Not Reportable 12/08/18 07:06 Not Reportable 12/08/18 07:06 Not Reportable 12/08/18 07:06 Not Reportable 12/08/18 07:06 Not Reportable 12/08/18 07:06 Hem Pathologist Commnt No 12/08/18 07:06 Sodium 132 mmol/L (137-145) L 12/10/18 06:33 Potassium 4.7 mmol/L (3.6-5.0) 12/10/18 06:33 Chloride 90.5 mmol/L (98-107) L 12/10/18 06:33 Carbon Dioxide 27 mmol/L (22-30) 12/10/18 06:33 19 mmol/L 12/10/18 06:33 BUN 31 mg/dL (9-20) H 12/10/18 06:33 8.3 mg/dL (0.8-1.5) H 12/10/18 06:33 Estimated GFR 8 ml/min 12/10/18 06:33 4 % 12/10/18 06:33 Glucose 282 mg/dL (75-100) H 12/10/18 06:33 8.4 % (4-6) H 12/08/18 07:06 Lactic Acid 1.50 mmol/L (0.7-2.0) 12/10/18 06:33 Calcium 8.4 mg/dL (8.4-10.2) 12/10/18 06:33 0.40 mg/dL (0.1-1.2) 12/07/18 20:56 AST 21 units/L (5-40) 12/07/18 20:56 ALT 19 units/L (7-56) 12/07/18 20:56 92 units/L (35-129) 12/07/18 20:56 8.8 g/dL (6.3-8.2) H 12/07/18 20:56 4.1 g/dL (3.9-5) 12/07/18 20:56 0.9 % 12/07/18 20:56 Hepatitis A IgM Ab Non-reactive (NonReactive) 12/07/18 00:20 Hep Bs Antigen Non-reactive (Negative) 12/07/18 00:20 Hep B Core IgM Ab Non-reactive (NonReactive) 12/07/18 00:20 Non-reactive (NonReactive) 12/07/18 00:20 Active Medications - Current Medications Current Medications: Generic Name Dose Route Start Last Admin Trade Name Freq PRN Reason Stop Dose Admin Acetaminophen 650 mg 12/08/18 01:14 12/10/18 05:02 Tylenol PO 650 mg Q4H PRN Administration Pain MILD(1-3)/Fever >100.5/GARCIA Acetaminophen/Hydrocodone Bitart 7.5 mg 12/09/18 11:51 12/10/18 09:42 [place] PO 7.5 mg Q6H PRN Administration Pain, Moderate (4-6) Cinacalcet 30 mg 12/10/18 10:00 12/10/18 09:41 Sensipar PO 30 mg DAILY LOBO Administration Cyclobenzaprine HCl 10 mg 12/09/18 22:00 12/10/18 09:41 Flexeril PO 10 mg BID LOBO Administration Gabapentin 300 mg 12/09/18 14:00 12/10/18 04:59 Neurontin PO 300 mg Q8HR LOBO Administration Hydralazine HCl 5 mg 12/07/18 23:21 12/08/18 18:47 Apresoline IV 5 mg Q6H PRN Administration Hypertension Sodium Chloride 100 mls @ 999 mls/hr 12/07/18 23:20 Nacl 0.9% IV FARNAZ PRN Hypotension Ceftriaxone Sodium 2 gm in 100 mls @ 200 mls/hr 12/10/18 12:00 Rocephin/Ns 2 Gm/100 Ml IV Q24HR LOBO Protocol Losartan Potassium 50 mg 12/10/18 10:00 12/10/18 09:41 Cozaar PO 50 mg QDAY LOBO Administration Ondansetron HCl 4 mg 12/08/18 01:14 Zofran IV Q8H PRN Nausea And Vomiting Sodium Chloride 10 ml 12/08/18 10:00 12/10/18 09:42 Sodium Chloride Flush Syringe 10 Ml IV 10 ml BID LOBO Administration Sodium Chloride 10 ml 12/08/18 01:14 Sodium Chloride Flush Syringe 10 Ml IV PRN PRN LINE FLUSH Tizanidine HCl 4 mg 12/10/18 10:00 12/10/18 09:41 Zanaflex PO 4 mg DAILY LOBO Administration Tramadol HCl 50 mg 12/09/18 11:25 Ultram PO Q6HR PRN Pain Nutrition/Malnutrition Assess - Dietary Evaluation Nutrition/Malnutrition Findings: Nutrition Notes Start: 12/08/18 12:14 Freq: Status: Active Protocol: Document 12/08/18 12:14 LP (Rec: 12/08/18 12:19 LP [id number]) Nutrition Notes 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 Pt DM not new. 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 Denies wt changes. Pt missed HD. 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 No Is Patient Ambulatory and/or Out of Bed Yes REE-(Seffner-St. Jeor-ambulatory/OOB) [ 2626.767 NUTR.[id number]] Kcal/Kg value to use for calculation 20 Approximate Energy Requirements Using 2359 kcal/Kg Calculation Used for Recommendations Kcal/kg Additional Notes Protein needs are 103-120g (1. 2-1.4g/kg Adjusted wt 86kg) Fluis needs are 1000-1500ml Nutrition Intervention Change Diet Order: Continue Add Supplement/Snack (indicate name/kcal Nepro vanilla BID /protein ) Provides kCal: 950 Provides Protein (gm) 50 Goal #1 Meet at least 80% of kcal and protein needs Anticipated Discharge Needs: Renal consistent CHO with ONS daily to BID Follow-Up By: 12/10/18 Additional Comments Follow for intakes, ONS tolerance
[2018-12-10] MEDS: ROCEPHIN/NS 2 GM/100 ML 2 GM/100 ML BAG IV SCH (15:36)
--- NOTE | 2018-12-10 17:34 | XRay Report ---
CHEST 1 VIEW INDICATION: change in status O2 levels COMPARISON: 12/07/2018 FINDINGS: Support devices: Unchanged. Heart: Moderately enlarged but stable Lungs/Pleura: No acute pulmonary or pleural findings. IMPRESSION: 1. No significant change. Signer Name: David Schultz MD Signed: 12/10/2018 5:30 PM Workstation Name: [id number]
[2018-12-11] MEDS: TYLENOL PO PRN (05:02)
[2018-12-11] MEDS: NEURONTIN PO SCH ×3 (05:02→22:49)
[2018-12-11 05:55] LABS: Basophils # (Auto) 0.1 K/mm3 (0.0-0.1); Basophils % (Auto) 0.4 % (0.0-1.8); Eosinophils # (Auto) 0.1 K/mm3 (0.0-0.4); Eosinophils % (Auto) 0.6 % (0.0-4.3); Hematocrit 35.4 % (35.5-45.6); Hemoglobin 11.4 gm/dl (11.8-15.2); Lymphocytes # (Auto) 1.1 K/mm3 (1.2-5.4); Lymphocytes % (Auto) 8.4 % (13.4-35.0); Mean Corpuscular HGB Conc 32 % (32-34); Mean Corpuscular Volume 98 fl (84-94); Monocytes # (Auto) 1.7 K/mm3 (0.0-0.8); Red Blood Count 3.63 M/mm3 (3.65-5.03); Red Cell Distribution Width 17.2 % (13.2-15.2)
[2018-12-11 06:06] LABS: Calcium 8.2 mg/dL (8.4-10.2); Platelet Count 75 K/mm3 (140-440)
[2018-12-11] MEDS: COZAAR PO SCH (09:14)
--- NOTE | 2018-12-11 11:25 | Progress Note ---
Assessment and Plan Cultures: 12/08 BCX - Group C Strep /12/11 BCX- in progress A/P: 53 yo M PMHx HTN, DM2, ESRD on HD admitted with SOB and edema, found to be bacteremic. 1. Sepsis secondary to Group C strep bacteremia - Continuing. unclear source of bacteremia at this point, possible from lungs via obscured pneumonia. Discontinue levofloxacin and start ceftriaxone. Obtain repeat blood cultures to document clearance. TTE no valvular vegetation. EF 45-50. 2. Edema - secondary to missed dialysis 3. HTN 4. DM2 5. ESRD on HD: right AVF malfunctioning. Recs: - continue ceftriaxone 2g q24h -follow-up repeat blood cultures to ensure clearance. Dr. Dumont is taking call this weekend , please call for questions. Krista Tapia NP [facility] M: [phone] O:[phone] Subjective Date of service: 12/11/18 Principal diagnosis: ESRD Interval history: Patient seen and examined. Asleep, difficult to arouse, but follows commands. Reports generalized weakness. Fevers. Objective - Exam Narrative Exam: Constitutional: Asleep, not east to arouse. generalized weakness. Head, Ears, Nose: Normocephalic, atraumatic. External ears, nose normal Eyes: Conjunctivae/corneas clear. No icterus. No ptosis. Neck: Supple, no meningeal signs Oral: fair dentition, moist mucous membranes Cardiovascular: S1, S2 normal. Normal rhythm Respiratory: Good air entry, clear to auscultation bilaterally GI: Soft, non-tender; bowel sounds normal. No peritoneal signs Musculoskeletal: No pedal edema, right AVF nonfunctioning, +thrill Skin: No rash or abscess Hem/Lymphatic: No palpable cervical or supraclavicular nodes. No lymphangitis Psych: no agitation Neurological: Moves all extremities, no focal defects - Constitutional Vitals: Vital Signs Temp Pulse Resp BP Pulse Ox 98.4 F 87 18 103/48 98 12/11/18 07:55 12/11/18 03:35 12/11/18 07:55 12/11/18 09:14 12/11/18 09:32 Temperature -Last 24 Hours Temperature 98.4 F Temperature 99.9 F Temperature 100.7 F Temperature 102.9 F Temperature 102.3 F Temperature 98.6 F - Labs CBC & Chem 7: 12/11/18 05:38 12/11/18 05:38 Labs: Abnormal lab results 12/10/18 12/11/18 12/11/18 Range/Units 17:41 05:38 05:38 WBC 12.8 H (4.5-11.0) K/mm3 RBC 3.63 L (3.65-5.03) M/mm3 Hgb 11.4 L (11.8-15.2) gm/dl Hct 35.4 L (35.5-45.6) % MCV 98 H (84-94) fl RDW 17.2 H (13.2-15.2) % Plt Count 75 L (140-440) K/mm3 Lymph % (Auto) 8.4 L (13.4-35.0) % [place] % (Auto) 13.0 H (0.0-7.3) % Lymph # 1.1 L (1.2-5.4) K/mm3 [place] # 1.7 H (0.0-0.8) K/mm3 Seg Neutrophils % 77.6 H (40.0-70.0) % Seg Neutrophils # 10.0 H (1.8-7.7) K/mm3 POC ABG pH 7.344 L (7.35-7.45) POC ABG pCO2 51.9 H (35-45) POC ABG pO2 73 L (80-105) Sodium 129 L (137-145) mmol/L Chloride 86.5 L (98-107) mmol/L BUN 47 H (9-20) mg/dL Creatinine 9.7 H (0.8-1.5) mg/dL Glucose 356 H (75-100) mg/dL Calcium 8.2 L (8.4-10.2) mg/dL
[2018-12-11] MEDS: ROCEPHIN/NS 2 GM/100 ML 2 GM/100 ML BAG IV SCH (11:44)
[2018-12-11] MEDS: ZANAFLEX PO SCH (11:49)
[2018-12-11] MEDS: FLEXERIL PO SCH ×2 (11:49→22:49)
[2018-12-11] MEDS: SENSIPAR PO SCH (11:49)
[2018-12-11] MEDS: SODIUM CHLORIDE FLUSH SYRINGE 10 ML IV SCH ×2 (11:50→22:50)
--- NOTE | 2018-12-11 12:23 | Progress Note ---
Assessment and Plan End Stage Renal Disease: Hyperkalemia: Volume overload: -Malfunctioning Right AVF-consulted Dr. Trimble for evaluation -Hemodialysis today for UF and clearance -Fluid restriction of 1 liter per day -Renal diet/Dialysis diet -Obtain daily weights -Monitor I/O's -Assess dialysis needs daily Leukocytosis/Febrile: -Blood culture showed gram positive cocci -On IV Rocephin -As per primary team Hypertension: -UF with HD -On Losartan and IV Hydralazine prn Diabetes Mellitus: -As per primary team Subjective Date of service: 12/11/18 Principal diagnosis: ESRD Interval history: Off floor for evaluation of right AVF by Vascular as it malfunctioned today and so was not able to receive hemodialysis this morning Objective - Vital Signs Vital signs: Vital Signs - 12hr 12/11/18 12/11/18 12/11/18 03:35 07:55 09:14 Temperature 99.9 F H 98.4 F Pulse Rate 87 Respiratory 20 18 Rate Blood Pressure 98/66 103/48 103/48 O2 Sat by Pulse 95 Oximetry 12/11/18 09:32 Temperature Pulse Rate Respiratory Rate Blood Pressure O2 Sat by Pulse 98 Oximetry - Lab 12/11/18 05:38 12/11/18 05:38 Most recent lab results Calcium 8.2 mg/dL (8.4-10.2) L 12/11/18 05:38 Medications & Allergies - Medications Allergies/Adverse Reactions: Allergies No Known Allergies Allergy (Verified 12/07/18 22:19) Home Medications: Home Medications Medication Instructions Recorded Confirmed Last Taken Type tiZANidine [Zanaflex 4mg TAB] 4 mg PO DAILY 12/08/18 12/09/18 Unknown History traMADol [Ultram] 50 mg PO Q6HR PRN 12/08/18 12/09/18 Unknown History Cinacalcet HCl [Sensipar] 30 mg PO DAILY 12/09/18 12/09/18 Unknown History Cyclobenzaprine [Flexeril 10 MG 10 mg PO BID 12/09/18 12/09/18 Unknown History TAB] Gabapentin [Neurontin] 300 mg PO Q8HR 12/09/18 12/09/18 2 Days Ago History ~12/07/18 Hydrocodone-Acetamn 7.5-325/15 7.5 mg PO Q6H PRN 12/09/18 12/09/18 Unknown His tory Losartan Potassium 100 mg PO DAILY 12/09/18 12/09/18 Unknown History Active Medications: Generic Name Dose Route Start Last Admin Trade Name Mic PRN Reason Stop Dose Admin Acetaminophen 650 mg 12/08/18 01:14 12/11/18 05:02 Tylenol PO 650 mg Q4H PRN Administration Pain MILD(1-3)/Fever >100.5/GARCIA Acetaminophen/Hydrocodone Bitart 7.5 mg 12/09/18 11:51 12/10/18 09:42 [place] PO 7.5 mg Q6H PRN Administration Pain, Moderate (4-6) Cinacalcet 30 mg 12/10/18 10:00 12/11/18 11:49 Sensipar PO 30 mg DAILY LOBO Administration Cyclobenzaprine HCl 10 mg 12/09/18 22:00 12/11/18 11:49 Flexeril PO 10 mg BID LOBO Administration Gabapentin 300 mg 12/09/18 14:00 12/11/18 05:02 Neurontin PO 300 mg Q8HR LOBO Administration Hydralazine HCl 5 mg 12/07/18 23:21 12/08/18 18:47 Apresoline IV 5 mg Q6H PRN Administration Hypertension Sodium Chloride 100 mls @ 999 mls/hr 12/07/18 23:20 Nacl 0.9% IV FARNAZ PRN Hypotension Ceftriaxone Sodium 2 gm in 100 mls @ 200 mls/hr 12/10/18 12:00 12/11/18 11:44 Rocephin/Ns 2 Gm/100 Ml IV 100 mls/hr Q24HR LOBO Administration Protocol Losartan Potassium 50 mg 12/10/18 10:00 12/11/18 09:14 Cozaar PO Not Given QDAY LOBO Ondansetron HCl 4 mg 12/08/18 01:14 Zofran IV Q8H PRN Nausea And Vomiting Sodium Chloride 10 ml 12/08/18 10:00 12/11/18 11:50 Sodium Chloride Flush Syringe 10 Ml IV 10 ml BID LOBO Administration Sodium Chloride 10 ml 12/08/18 01:14 Sodium Chloride Flush Syringe 10 Ml IV PRN PRN LINE FLUSH Tizanidine HCl 4 mg 12/10/18 10:00 12/11/18 11:49 Zanaflex PO 4 mg DAILY LOBO Administration Tramadol HCl 50 mg 12/09/18 11:25 12/10/18 21:42 Ultram PO 50 mg Q6HR PRN Administration Pain
[2018-12-11] MEDS ORDERED: HEPARIN/NS 5000 UNIT/500ML(CATH LAB) 500 ML IR ONE ×3 (13:10→15:00)
[2018-12-11] MEDS ORDERED: XYLOCAINE 2% INFILTRATI ONE (13:10)
[2018-12-11] MEDS ORDERED: VERSED ONE (13:18)
[2018-12-11] MEDS ORDERED: NACL 0.9% 250ML 250 ML ONE (13:38)
[2018-12-11] MEDS: SUBLIMAZE ONE ×2 (13:53→14:10)
[2018-12-11] MEDS: XYLOCAINE 1% 20 mL ONE ×2 (13:53→14:01)
--- NOTE | 2018-12-11 14:32 | Progress Note ---
Assessment and Plan Assessment and plan: Sepsis. Etiology secondary to group C strep bacteremia. ID following. Rocephin started. Obtain repeat blood cultures to document clearance. Obtain echo to rule out endocariditis. Lactic acid normal. Group C strep bacteremia. As above. ESRD. Malfunctioning Right AVF-consulted Dr. Trimble for evaluation Volume overload. S/P hemodialysis last night for UF and clearance Hemodialysis again today for UF and clearance and hemodialysis tomorrow as well Fluid restriction of 1 liter per day CXR- no pulmonary edema Hyperkalemia. HD today and low K diet Hypertension -UF with HD -On IV Hydralazine -Reconcile home meds DM II Cont. SSRI and Accuchecks History Interval history: No new issues overnight. Hospitalist Physical - Constitutional Vitals: Temp Pulse Resp BP Pulse Ox 98.4 F 87 18 103/48 98 12/11/18 07:55 12/11/18 03:35 12/11/18 07:55 12/11/18 09:14 12/11/18 09:32 General appearance: Present: no acute distress, well-nourished - EENT Eyes: Present: PERRL, EOM intact ENT: hearing intact, clear oral mucosa, dentition normal - Neck Neck: Present: supple, normal ROM - Respiratory Respiratory effort: normal Respiratory: bilateral: diminished, rales - Cardiovascular Rhythm: regular Heart Sounds: Present: S1 & S2. Absent: gallop, rub - Extremities Extremities: no ischemia, No edema, Full ROM - Abdominal General gastrointestinal: soft, non-tender, non-distended, normal bowel sounds - Integumentary Integumentary: Present: clear, warm, dry - Neurologic Neurologic: CNII-XII intact, moves all extremities Results - Labs CBC & Chem 7: 12/11/18 05:38 12/11/18 05:38 Labs: Laboratory Last Values WBC 12.8 K/mm3 (4.5-11.0) H 12/11/18 05:38 RBC 3.63 M/mm3 (3.65-5.03) L 12/11/18 05:38 Hgb 11.4 gm/dl (11.8-15.2) L 12/11/18 05:38 Hct 35.4 % (35.5-45.6) L 12/11/18 05:38 MCV 98 fl (84-94) H 12/11/18 05:38 MCH 32 pg (28-32) 12/11/18 05:38 MCHC 32 % (32-34) 12/11/18 05:38 RDW 17.2 % (13.2-15.2) H 12/11/18 05:38 Plt Count 75 K/mm3 (140-440) L 12/11/18 05:38 Lymph % (Auto) 8.4 % (13.4-35.0) L 12/11/18 05:38 [place] % (Auto) 13.0 % (0.0-7.3) H 12/11/18 05:38 Eos % (Auto) 0.6 % (0.0-4.3) 12/11/18 05:38 Baso % (Auto) 0.4 % (0.0-1.8) 12/11/18 05:38 Lymph # 1.1 K/mm3 (1.2-5.4) L 12/11/18 05:38 [place] # 1.7 K/mm3 (0.0-0.8) H 12/11/18 05:38 Eos # 0.1 K/mm3 (0.0-0.4) 12/11/18 05:38 Baso # 0.1 K/mm3 (0.0-0.1) 12/11/18 05:38 Add Manual Diff Complete 12/08/18 07:06 Total Counted 100 12/08/18 07:06 Seg Neutrophils % 77.6 % (40.0-70.0) H 12/11/18 05:38 Seg Neuts % (Manual) 93.0 % (40.0-70.0) H 12/08/18 07:06 0 % 12/08/18 07:06 6.0 % (13.4-35.0) L 12/08/18 07:06 Reactive Lymphs % (Man) 0 % 12/08/18 07:06 1.0 % (0.0-7.3) 12/08/18 07:06 0 % (0.0-4.3) 12/08/18 07:06 0 % (0.0-1.8) 12/08/18 07:06 0 % 12/08/18 07:06 0 % 12/08/18 07:06 0 % 12/08/18 07:06 0 % 12/08/18 07:06 Nucleated RBC % Not Reportable 12/08/18 07:06 Seg Neutrophils # 10.0 K/mm3 (1.8-7.7) H 12/11/18 05:38 Seg Neutrophils # Man 18.1 K/mm3 (1.8-7.7) H 12/08/18 07:06 Band Neutrophils # 0.0 K/mm3 12/08/18 07:06 1.2 K/mm3 (1.2-5.4) 12/08/18 07:06 Abs React Lymphs (Man) 0.0 K/mm3 12/08/18 07:06 0.2 K/mm3 (0.0-0.8) 12/08/18 07:06 0.0 K/mm3 (0.0-0.4) 12/08/18 07:06 0.0 K/mm3 (0.0-0.1) 12/08/18 07:06 0.0 K/mm3 12/08/18 07:06 0.0 K/mm3 12/08/18 07:06 0.0 K/mm3 12/08/18 07:06 Blast Cells # 0.0 K/mm3 12/08/18 07:06 WBC Morphology Not Reportable 12/08/18 07:06 Hypersegmented Neuts Not Reportable 12/08/18 07:06 Hyposegmented Neuts Not Reportable 12/08/18 07:06 Hypogranular Neuts Not Reportable 12/08/18 07:06 Not Reportable 12/08/18 07:06 Not Reportable 12/08/18 07:06 Not Reportable 12/08/18 07:06 Not Reportable 12/08/18 07:06 Not Reportable 12/08/18 07:06 Not Reportable 12/08/18 07:06 Consistent w auto 12/08/18 07:06 Not Reportable 12/08/18 07:06 Plt Clumps, EDTA Not Reportable 12/08/18 07:06 Not Reportable 12/08/18 07:06 Not Reportable 12/08/18 07:06 Not Reportable 12/08/18 07:06 Plt Morphology Comment Not Reportable 12/08/18 07:06 RBC Morphology Not Reportable 12/08/18 07:06 Dimorphic RBCs Not Reportable 12/08/18 07:06 Not Reportable 12/08/18 07:06 Not Reportable 12/08/18 07:06 Few 12/08/18 07:06 Few 12/08/18 07:06 Not Reportable 12/08/18 07:06 Not Reportable 12/08/18 07:06 Not Reportable 12/08/18 07:06 Not Reportable 12/08/18 07:06 Not Reportable 12/08/18 07:06 Not Reportable 12/08/18 07:06 Not Reportable 12/08/18 07:06 Rare 12/08/18 07:06 Not Reportable 12/08/18 07:06 Not Reportable 12/08/18 07:06 Not Reportable 12/08/18 07:06 Not Reportable 12/08/18 07:06 Not Reportable 12/08/18 07:06 Not Reportable 12/08/18 07:06 Not Reportable 12/08/18 07:06 Acanthocytes (Spur) Not Reportable 12/08/18 07:06 Rouleaux Not Reportable 12/08/18 07:06 Not Reportable 12/08/18 07:06 Not Reportable 12/08/18 07:06 Not Reportable 12/08/18 07:06 Not Reportable 12/08/18 07:06 Hem Pathologist Commnt No 12/08/18 07:06 POC ABG pH 7.344 (7.35-7.45) L 12/10/18 17:41 POC ABG pCO2 51.9 (35-45) H 12/10/18 17:41 POC ABG pO2 73 (80-105) L 12/10/18 17:41 POC ABG HCO3 28.2 (22-26 mml/L) 12/10/18 17:41 POC ABG Total CO2 30 (23-27mmol/L) 12/10/18 17:41 POC ABG O2 Sat 93 12/10/18 17:41 POC ABG Base Excess 3 ((-2) - (+3)mmol/L) 12/10/18 17:41 4 % 12/10/18 17:41 Sodium 129 mmol/L (137-145) L 12/11/18 05:38 Potassium 4.9 mmol/L (3.6-5.0) 12/11/18 05:38 Chloride 86.5 mmol/L (98-107) L 12/11/18 05:38 Carbon Dioxide 27 mmol/L (22-30) 12/11/18 05:38 20 mmol/L 12/11/18 05:38 BUN 47 mg/dL (9-20) H 12/11/18 05:38 9.7 mg/dL (0.8-1.5) H 12/11/18 05:38 Estimated GFR 7 ml/min 12/11/18 05:38 5 % 12/11/18 05:38 Glucose 356 mg/dL (75-100) H 12/11/18 05:38 8.4 % (4-6) H 12/08/18 07:06 Lactic Acid 1.50 mmol/L (0.7-2.0) 12/10/18 06:33 Calcium 8.2 mg/dL (8.4-10.2) L 12/11/18 05:38 0.40 mg/dL (0.1-1.2) 12/07/18 20:56 AST 21 units/L (5-40) 12/07/18 20:56 ALT 19 units/L (7-56) 12/07/18 20:56 92 units/L (35-129) 12/07/18 20:56 8.8 g/dL (6.3-8.2) H 12/07/18 20:56 4.1 g/dL (3.9-5) 12/07/18 20:56 0.9 % 12/07/18 20:56 Hepatitis A IgM Ab Non-reactive (NonReactive) 12/07/18 00:20 Hep Bs Antigen Non-reactive (Negative) 12/07/18 00:20 Hep B Core IgM Ab Non-reactive (NonReactive) 12/07/18 00:20 Non-reactive (NonReactive) 12/07/18 00:20 Active Medications - Current Medications Current Medications: Generic Name Dose Route Start Last Admin Trade Name Freq PRN Reason Stop Dose Admin Acetaminophen 650 mg 12/08/18 01:14 12/11/18 05:02 Tylenol PO 650 mg Q4H PRN Administration Pain MILD(1-3)/Fever >100.5/GARCIA Acetaminophen/Hydrocodone Bitart 7.5 mg 12/09/18 11:51 12/10/18 09:42 [place] PO 7.5 mg Q6H PRN Administration Pain, Moderate (4-6) Cinacalcet 30 mg 12/10/18 10:00 12/11/18 11:49 Sensipar PO 30 mg DAILY LOBO Administration Cyclobenzaprine HCl 10 mg 12/09/18 22:00 12/11/18 11:49 Flexeril PO 10 mg BID LOBO Administration Gabapentin 300 mg 12/09/18 14:00 12/11/18 05:02 Neurontin PO 300 mg Q8HR LOBO Administration Hydralazine HCl 5 mg 12/07/18 23:21 12/08/18 18:47 Apresoline IV 5 mg Q6H PRN Administration Hypertension Sodium Chloride 100 mls @ 999 mls/hr 12/07/18 23:20 Nacl 0.9% IV FARNAZ PRN Hypotension Ceftriaxone Sodium 2 gm in 100 mls @ 200 mls/hr 12/10/18 12:00 12/11/18 11:44 Rocephin/Ns 2 Gm/100 Ml IV 100 mls/hr Q24HR LOBO Administration Protocol Losartan Potassium 50 mg 12/10/18 10:00 12/11/18 09:14 Cozaar PO Not Given QDAY LOBO Ondansetron HCl 4 mg 12/08/18 01:14 Zofran IV Q8H PRN Nausea And Vomiting Sodium Chloride 10 ml 12/08/18 10:00 12/11/18 11:50 Sodium Chloride Flush Syringe 10 Ml IV 10 ml BID LOBO Administration Sodium Chloride 10 ml 12/08/18 01:14 Sodium Chloride Flush Syringe 10 Ml IV PRN PRN LINE FLUSH Tizanidine HCl 4 mg 12/10/18 10:00 12/11/18 11:49 Zanaflex PO 4 mg DAILY LOBO Administration Tramadol HCl 50 mg 12/09/18 11:25 12/10/18 21:42 Ultram PO 50 mg Q6HR PRN Administration Pain Nutrition/Malnutrition Assess - Dietary Evaluation Nutrition/Malnutrition Findings: Nutrition Notes Start: 12/08/18 12:14 Freq: Status: Active Protocol: Document 12/10/18 16:14 RM (Rec: 12/10/18 16:19 [email or web address]) Nutrition Notes Initial or Follow up Reassessment Current Diagnosis CKD (stage V CKD),Diabetes, Hypertension Other Pertinent Diagnosis on HD Current Diet Renal w/Nepro Vanilla BID Labs/Tests Reviewed Pertinent Medications Reviewed Height 5 ft 10 in Weight 127.1 kg [place] Body Weight (kg) 75.45 BMI 40.1 Weight change and time frame Noted wt increase. Likely d/t fluid change. Subjective/Other Information Pt asleep at time of visit. Per pt tech pt is eating all of his meals and drinking the Nepro. Percent of energy/protein needs met: 100%/100% Burn Absent Trauma Absent #1 Nutrition Diagnosis Inadequate oral intake Diagnosis Progress(for reassessment Continues documentation) Is patient on ventilator? No Is Patient Ambulatory and/or Out of Bed Yes REE-([place]-St. Jeor-ambulatory/OOB) [ 2745.925 NUTR.[id number]] Kcal/Kg value to use for calculation 18 Approximate Energy Requirements Using 2288 kcal/Kg Calculation Used for Recommendations Kcal/kg Additional Notes Protein needs are 103-120g (1. 2-1.4g/kg Adjusted wt 86kg) Fluis needs are 1000-1500ml Nutrition Intervention Change Diet Order: Continue Add Supplement/Snack (indicate name/kcal Nepro vanilla BID /protein ) Provides kCal: 950 Provides Protein (gm) 50 Goal #1 Continue to meet at least 75% of kcal and protein needs Anticipated Discharge Needs: Renal consistent CHO with ONS daily to BID Follow-Up By: 12/15/18 Additional Comments Follow PO and ONS intakes
[2018-12-11] MEDS: XYLOCAINE 2% INFILTRATI ONE ×2 (14:58→15:01)
[2018-12-11] MEDS: HEPARIN 10,000 UNITS/10 ML ONE ×2 (15:06→15:07)
--- NOTE | 2018-12-11 15:21 | Operative Report ---
Operative Report Operative Report: Exam: Right upper extremity fistulogram, right common femoral vein Vas-Cath Clinical indication: Patient with a history of end-stage renal disease on hemodialysis. His right upper extremity accesses thrombosed. Access required for urgent dialysis Date: 12/11/2018 Procedure: Following an exhalation of the risks, benefits and alternatives; written informed consent was obtained. The patient was roughly radiographic suite placed in supine position on the examination table. Initial ultrasound evaluation of his arm demonstrated 2 large pseudoaneurysms. Fluoroscopic evaluation demonstrates hero graft distally and ringed PTFE graft proximally. The patient's right upper arm was prepped and draped in the usual sterile fashion. 1% lidocaine was used for anesthesia. Under ultrasound guidance, the graft was accessed towards venous outflow using a 7 cm 21-gauge needle. A 0.018 was advanced centrally. The needle was removed and a micro sheath placed. The 0.018 guidewire was exchanged for a 0.035 guidewire and the microcytic exchange for a 7 [place] vascular sheath. A 4 [place] vertebral catheter was eventually guidewire centrally. The guidewire was advanced to the tip of the hero graft. Contrast was injected and the catheter withdrawn. There is thrombus extending from the tip of the hero graft to the sheath insertion site. Maceration of thrombus was first performed using an 8 mm balloon throughout the ringed PTFE portion of the graft. The thrombus was then swept from the hero graft using a 4 mm balloon. The graft itself extends beneath the pseudoaneurysms. The pseudoaneurysms are completely thrombosed and not directly connected in line with the graft. At this point, this access was abandoned and the catheters, guidewires and she is removed and hemostasis achieved using 4-0 Vicryl suture. Sterile dressings were applied. Ultrasound evaluation of the right groin and stated patent right common femoral vein. The patient's right groin was prepped and draped in the usual sterile fashion. 1% lidocaine was used for anesthesia. Under ultrasound guidance, the right common femoral vein was cannulated with a 7 cm 18-gauge needle. A 0.03 bicarbonate was advanced centrally. The needle was removed and following serial dilation, a 30 cm non-cuffed dialysis catheter was advanced over the guidewire centrally. The guidewire was removed. Nonpulsatile blood return from all 3 ports. The catheter was rarely flushed with saline and locked with heparin. The catheter was securely fasten the skin surface using 2- 0 Ethilon suture and sterile dressing applied. Minimal sedation was utilized secondary to patient's volume overload status. Continuous cardiopulmonary monitoring was utilized. The patient tolerated the procedure well. There were no immediate post procedure complications. Impression: 1) Right upper extremity fistulogram demonstrating to large thrombosed pseudoaneurysms previously used for dialysis access extending from PTFE graft. The patient will ultimately require surgical revision. 2) Placement of a 30 cm Vas-Cath via the right common femoral vein.
--- NOTE | 2018-12-11 15:31 | Consultation ---
History of Present Illness - Reason for Consult Consult date: 12/11/18 Malfunctioning dialysis access - History of Present Illness Patient with a history of end-stage renal disease on hemodialysis who is traveled here from [place]. He had previously dialyzed through a right upper arm graft. The lower part of the graft is PTFE, the upper part of the graft is a hero graft. Patient was able to undergo dialysis on Friday however, the graft is thrombosed. Past History Past Medical History: diabetes, dialysis, ESRD, hypertension Past Surgical History: No surgical history Social history: no significant social history. denies: smoking, alcohol abuse Family history: diabetes Medications and Allergies Allergies Allergy/AdvReac Type Severity Reaction Status Date / Time No Known Allergies Allergy Verified 12/07/18 22:19 Home Medications Medication Instructions Recorded Confirmed Last Taken Type tiZANidine [Zanaflex 4mg TAB] 4 mg PO DAILY 12/08/18 12/09/18 Unknown History traMADol [Ultram] 50 mg PO Q6HR PRN 12/08/18 12/09/18 Unknown History Cinacalcet HCl [Sensipar] 30 mg PO DAILY 12/09/18 12/09/18 Unknown History Cyclobenzaprine [Flexeril 10 MG 10 mg PO BID 12/09/18 12/09/18 Unknown History TAB] Gabapentin [Neurontin] 300 mg PO Q8HR 12/09/18 12/09/18 2 Days Ago History ~12/07/18 Hydrocodone-Acetamn 7.5-325/15 7.5 mg PO Q6H PRN 12/09/18 12/09/18 Unknown History Losartan Potassium 100 mg PO DAILY 12/09/18 12/09/18 Unknown History Active Meds: Active Medications Acetaminophen (Tylenol) 650 mg PO Q4H PRN PRN Reason: Pain MILD(1-3)/Fever >100.5/GARCIA Last Admin: 12/11/18 05:02 Dose: 650 mg Documented by: Acetaminophen/Hydrocodone Bitart ([place]) 7.5 mg PO Q6H PRN PRN Reason: Pain, Moderate (4-6) Last Admin: 12/10/18 09:42 Dose: 7.5 mg Documented by: Cinacalcet (Sensipar) 30 mg PO DAILY LOBO Last Admin: 12/11/18 11:49 Dose: 30 mg Documented by: Cyclobenzaprine HCl (Flexeril) 10 mg PO BID [facility] Last Admin: 12/11/18 11:49 Dose: 10 mg Documented by: Gabapentin (Neurontin) 300 mg PO Q8HR [facility] Last Admin: 12/11/18 05:02 Dose: 300 mg Documented by: Hydralazine HCl (Apresoline) 5 mg IV Q6H PRN PRN Reason: Hypertension Last Admin: 12/08/18 18:47 Dose: 5 mg Documented by: Sodium Chloride (Nacl 0.9%) 100 mls @ 999 mls/hr IV FARNAZ PRN PRN Reason: Hypotension Ceftriaxone Sodium (Rocephin/Ns 2 Gm/100 Ml) 2 gm in 100 mls @ 200 mls/hr IV Q24HR [facility]; Protocol Last Admin: 12/11/18 11:44 Dose: 100 mls/hr Documented by: Losartan Potassium (Cozaar) 50 mg PO QDAY [facility] Last Admin: 12/11/18 09:14 Dose: Not Given Documented by: Ondansetron HCl (Zofran) 4 mg IV Q8H PRN PRN Reason: Nausea And Vomiting Sodium Chloride (Sodium Chloride Flush Syringe 10 Ml) 10 ml IV BID [facility] Last Admin: 12/11/18 11:50 Dose: 10 ml Documented by: Sodium Chloride (Sodium Chloride Flush Syringe 10 Ml) 10 ml IV PRN PRN PRN Reason: LINE FLUSH Tizanidine HCl (Zanaflex) 4 mg PO DAILY [facility] Last Admin: 12/11/18 11:49 Dose: 4 mg Documented by: Tramadol HCl (Ultram) 50 mg PO Q6HR PRN PRN Reason: Pain Last Admin: 12/10/18 21:42 Dose: 50 mg Documented by: Review of Systems All systems: negative Exam - Constitutional Vitals: Temp Pulse Resp BP Pulse Ox 98.4 F 87 18 103/48 98 12/11/18 07:55 12/11/18 03:35 12/11/18 07:55 12/11/18 09:14 12/11/18 09:32 General appearance: Present: no acute distress - EENT Eyes: Present: EOM intact ENT: hearing intact - Neck Neck: Present: supple - Respiratory Respiratory effort: normal - Extremities Extremities: abnormal Extremity abnormal: edema - Abdominal General gastrointestinal: Present: deferred Male genitourinary: Present: deferred - Rectal Rectal Exam: deferred - Psychiatric Psychiatric: cooperative Results - Labs CBC & Chem 7: 12/11/18 05:38 12/11/18 05:38 Labs: Abnormal lab results 12/10/18 12/11/18 12/11/18 Range/Units 17:41 05:38 05:38 WBC 12.8 H (4.5-11.0) K/mm3 RBC 3.63 L (3.65-5.03) M/mm3 Hgb 11.4 L (11.8-15.2) gm/dl Hct 35.4 L (35.5-45.6) % MCV 98 H (84-94) fl RDW 17.2 H (13.2-15.2) % Plt Count 75 L (140-440) K/mm3 Lymph % (Auto) 8.4 L (13.4-35.0) % [place] % (Auto) 13.0 H (0.0-7.3) % Lymph # 1.1 L (1.2-5.4) K/mm3 [place] # 1.7 H (0.0-0.8) K/mm3 Seg Neutrophils % 77.6 H (40.0-70.0) % Seg Neutrophils # 10.0 H (1.8-7.7) K/mm3 POC ABG pH 7.344 L (7.35-7.45) POC ABG pCO2 51.9 H (35-45) POC ABG pO2 73 L (80-105) Sodium 129 L (137-145) mmol/L Chloride 86.5 L (98-107) mmol/L BUN 47 H (9-20) mg/dL Creatinine 9.7 H (0.8-1.5) mg/dL Glucose 356 H (75-100) mg/dL Calcium 8.2 L (8.4-10.2) mg/dL Assessment and Plan Patient underwent unsuccessful thrombectomy of his graft. Patient has ringed PTFE graft in the lower portion of his dialysis access. This graft is very thin-walled. This has been punctured or dialysis access which has resulted in the development of 2 large pseudoaneurysms. The pseudoaneurysms were subsequently repeatedly cannulated for dialysis access however, once they thrombosed, this access will then need to be revised surgically. Patient will be able to undergo dialysis through a right common femoral vein Vascath. Once the patient is stable, this can be converted to a tunneled hemodialysis catheter and the patient discharged home to follow up with their vascular surgeons in [place]
[2018-12-11] MEDS ORDERED: NACL 0.9 (PRIMING MACHINE ONLY DIALYSIS) MC ONE (18:53)
[2018-12-11] MEDS ORDERED: ALBURX 25% (ALBUMIN) IV STA (19:52)
[2018-12-12] MEDS ORDERED: NACL 0.9% 250ML 250 ML IV ONE ×2 (04:47→07:30)
[2018-12-12] MEDS ORDERED: VANCOMYCIN PHARMACY TO DOSE IV SCH (05:00)
--- NOTE | 2018-12-12 06:21 | Event Note ---
Date: 12/12/18 JEFF HUTCHINSON was called and I responded to the CODE BLUE. Hospitalist was running the code. Patient was not in today. Patient intubated. Procedure note: Patient intubated with an 8.0 with a kaleidoscope. Patient at 24 at the teeth. Bilateral breath sounds noted. No epigastric sounds noted. Patient had good color change on CO2 detector. X-ray done. R Carlos use. Patient given 20 of etomidate and 75 of jo-ann. See nurse's note. X-ray shows good placement of the ET tube.
[2018-12-12] MEDS: LEVOPHED DRIP 4 MG/NS 250 ML 4 MG/250 ML BAG IV SCH ×6 (06:45→23:13)
[2018-12-12] MEDS ORDERED: LEVOPHED DRIP 4 MG/NS 250 ML 4 MG/250 ML BAG IV ONE (06:45)
--- NOTE | 2018-12-12 06:48 | XRay Report ---
CHEST - 1 VIEW INDICATION: POST INTUBATION E T TUBE PLACEMENT COMPARISON: 12/10/2018 FINDINGS: Support devices: Interval intubation. Otherwise support device positioning. Heart: Stable cardiomediastinal silhouette. Lungs/pleura: Additional findings: None. IMPRESSION: Unchanged exam. Signer Name: Antonio Metz MD Signed: 12/12/2018 6:43 AM Workstation Name: [id number]
[2018-12-12] MEDS: INTROPIN DRIP 800 MG/D5W 250 ML 800 MG/250 ML BAG IV SCH ×4 (06:50→22:37)
--- NOTE | 2018-12-12 07:08 | Event Note ---
Date: 12/12/18 called about an ABG obtained during a recent code. Appears to show metabolic acidosis from the call I received. Sodium Bicarb drip ordered.
[2018-12-12 07:10] LABS: BUN/Creatinine Ratio 4; Blood Urea Nitrogen 20 mg/dL (9-20); Hemolysis Index 7
[2018-12-12 07:19] LABS: Calcium 4.4 mg/dL (8.4-10.2)
[2018-12-12 07:21] LABS: Alanine Aminotransferase 38 units/L (7-56); Albumin 1.7 g/dL (3.9-5); Bilirubin,Direct 0.4 mg/dL (0-0.2)
[2018-12-12] MEDS: SODIUM BICARBONATE 150 MEQ in D5W 1,000 ML IV SCH ×3 (07:35→22:45)
--- NOTE | 2018-12-12 07:38 | Event Note ---
Date: 12/12/18 PATIENT REPORTED TO THE PULSELESS, PEA NOTED. ACLS PROTOCOL INITIATED. 3 epi, 2 sodium bicarb and calcium given, pulse restored. Continued on pressors. attempt to reach family futile as no one picked up and despite looking in his phone. no emergency contact noted. He remains unresponsive. Pupil is mildly reactive. Head ct and repeat BMP ordered. see code sheet for all other details 35 mins critical care time attending and surgeon's assistant notified
[2018-12-12 07:41] LABS: Creatine Kinase MB 1.3 ng/mL (0.0-4.0)
[2018-12-12 08:01] LABS: LDL Cholesterol,Direct 4 mg/dL (50-130)
[2018-12-12 08:03] LABS: HDL Cholesterol < 3 mg/dL (40-59)
[2018-12-12] MEDS: Vasostrict 20 UNIT in NACL 0.9% 100 ML IV SCH ×2 (08:18→15:55)
[2018-12-12] MEDS: NEURONTIN PO SCH ×2 (08:30→14:20)
[2018-12-12 08:34] LABS: Calcium 9.9 mg/dL (8.4-10.2)
[2018-12-12] MEDS ORDERED: HumuLIN R IV ONE (08:50)
[2018-12-12] MEDS ORDERED: D50W (25GM) Vial IV ONE (08:51)
[2018-12-12] MEDS ORDERED: D50W (25GM) Syringe IV ONE (09:00)
[2018-12-12] MEDS ORDERED: NACL 0.9% 500 ML 500 ML IV ONE ×3 (09:00→18:00)
--- NOTE | 2018-12-12 09:09 | Event Note ---
Date: 12/12/18 CODE MET CALLED ON PATIENT AT ABOUT 05:32AM AND THEN CODE EVANGELINA FOLLED SHORTLY AT 05:36A.M PATIENT HAD NO PULSE AND NO BP AND CPR WAS INITIATED PER ACLS PROTOCOL. PATIENT WAS SUCESSFULLY INTUBATED BY ER DOCTOR AND REGAINED PULSE WITH RATE UP TO 200 WITH WIDE COMPLEX TACHYCARDIC RYTHM. HE WAS GIVEN A DOSE OF 150MG OF AMIDORONE AND HE CONVERTED TO NORMAL SINUS RYTHM AND RATE CAME DOWN TO 105 TO BELOW 100 AND PATIENT WAS TRASFERED TO THE UNIT . HE THEM BRADIED DOWN AGAIN AND HAD 1 I.V DOSE OF EPINEPHRINE THAT RAISED THE PULSE RATE AGAIN TO THE 50'S . I.V DOPAMIN WAS HUNG UP PENDING THE RECEIPT OF I.V LEVOPHED FOR REPLACEMENT AND THE PULSE STAYED IN THE MID 50'S TO 60'S PATIENT WENT INTO ANOTHER CARDIOPULMONARY ARREST AND WAS QUIKLY RESUCITATED. MANAGMENT WAS THEN TAKING OVER BY THE MORNING TEAM
[2018-12-12] MEDS ORDERED: LEVAQUIN 500MG/100ML 500 MG/100 ML BAG IV SCH ×2 (10:00)
[2018-12-12] MEDS ORDERED: NEO-SYNEPHRINE 100 MG in NACL 0.9% 90 ML IV SCH (10:00)
[2018-12-12] MEDS ORDERED: VANCOMYCIN/NS 1 GM/250 ML 1 GM/250 ML BAG IV ONE (10:00)
[2018-12-12] MEDS ORDERED: LEVAQUIN 750MG/150ML 750 MG/150 ML BAG IV SCH (10:00)
[2018-12-12] MEDS ORDERED: INTROPIN DRIP 800 MG/D5W 250 ML IV ONE (10:27)
[2018-12-12] MEDS ORDERED: ADRENALIN ONE ×3 (10:27→14:19)
[2018-12-12] MEDS ORDERED: CORDARONE IV ONE (10:27)
[2018-12-12] MEDS: ROCEPHIN/NS 2 GM/100 ML 2 GM/100 ML BAG IV SCH (10:36)
[2018-12-12] MEDS: ADRENALIN 8 MG in NACL 0.9% 250ML 242 ML IV SCH ×2 (10:42→22:13)
[2018-12-12] MEDS ORDERED: NACL 0.9% 100 ML IV PRN (10:59)
--- NOTE | 2018-12-12 11:03 | Progress Note ---
Assessment and Plan Patient status post placement of right common femoral vein vas cath. Per prior note, the patient's graft will need to be surgically revised to allow access. Once the patient is more stable, his vas cath can be converted to a PermCath all owing to return to [place] to his primary vascular surgeons. Subjective Date of service: 12/12/18 Principal diagnosis: ESRD Interval history: Patient with a history of end-stage disease status mental post placement of a right common femoral vein Vascath. Overnight events and patient's bacteremia noted with patient being intubated and on multiple pressors at time of examination. Objective - Constitutional Vitals: Vital Signs - 12hr 12/11/18 12/12/18 12/12/18 23:34 06:24 08:29 Temperature 100.0 F H 96.9 F L Pulse Rate 92 H 41 L Respiratory 22 Rate Blood Pressure 109/54 O2 Sat by Pulse 94 Oximetry 12/12/18 09:22 Temperature Pulse Rate 118 H Respiratory Rate Blood Pressure 90/24 O2 Sat by Pulse 98 Oximetry General appearance: Present: other (and tolerated) - Neck Neck: other (debated) Extremities: abnormal (right upper extremity graft site stable in appearance. Vas cath insertion site soft with no subcutaneous hematoma) - Gastrointestinal General gastrointestinal: Present: deferred Rectal Exam: deferred - Genitourinary Male genitourinary: deferred - Labs CBC & Chem 7: 12/11/18 05:38 12/12/18 08:00 Labs: Abnormal lab results 12/12/18 12/12/18 12/12/18 Range/Units 05:46 06:30 06:36 POC ABG pH (7.35-7.45) POC ABG pCO2 (35-45) Potassium 2.7 L* D (3.6-5.0) mmol/L Chloride 114.3 H (98-107) mmol/L Carbon Dioxide 9 L* D (22-30) mmol/L BUN (9-20) mg/dL Creatinine 4.6 H D (0.8-1.5) mg/dL Glucose 221 H (75-100) mg/dL POC Glucose 180 H 176 H (70-105) Lactic Acid (0.7-2.0) mmol/L Calcium 4.4 L* D (8.4-10.2) mg/dL Magnesium 1.20 L (1.7-2.3) mg/dL Direct Bilirubin 0.4 H (0-0.2) mg/dL AST 94 H (5-40) units/L Total Creatine Kinase 340 H (55-170) units/L Troponin T 0.186 H* (0.00-0.029) ng/mL Total Protein 3.7 L D (6.3-8.2) g/dL Albumin 1.7 L (3.9-5) g/dL Cholesterol 10 L (50-199) mg/dL LDL Cholesterol Direct 4 L (50-130) mg/dL HDL Cholesterol < 3 L (40-59) mg/dL 12/12/18 12/12/18 12/12/18 Range/Units 06:45 07:00 07:45 POC ABG pH 7.099 L (7.35-7.45) POC ABG pCO2 31.4 L (35-45) Potassium (3.6-5.0) mmol/L Chloride (98-107) mmol/L Carbon Dioxide (22-30) mmol/L BUN (9-20) mg/dL Creatinine (0.8-1.5) mg/dL Glucose (75-100) mg/dL POC Glucose 151 H (70-105) Lactic Acid 4.70 H* (0.7-2.0) mmol/L Calcium (8.4-10.2) mg/dL Magnesium (1.7-2.3) mg/dL Direct Bilirubin (0-0.2) mg/dL AST (5-40) units/L Total Creatine Kinase (55-170) units/L Troponin T (0.00-0.029) ng/mL Total Protein (6.3-8.2) g/dL Albumin (3.9-5) g/dL Cholesterol (50-199) mg/dL LDL Cholesterol Direct (50-130) mg/dL HDL Cholesterol (40-59) mg/dL 12/12/18 Range/Units 08:00 POC ABG pH (7.35-7.45) POC ABG pCO2 (35-45) Potassium 6.2 H* D (3.6-5.0) mmol/L Chloride 91.4 L (98-107) mmol/L Carbon Dioxide 15 L (22-30) mmol/L BUN 34 H (9-20) mg/dL Creatinine 8.7 H D (0.8-1.5) mg/dL Glucose (75-100) mg/dL POC Glucose (70-105) Lactic Acid (0.7-2.0) mmol/L Calcium (8.4-10.2) mg/dL Magnesium (1.7-2.3) mg/dL Direct Bilirubin (0-0.2) mg/dL AST (5-40) units/L Total Creatine Kinase (55-170) units/L Troponin T (0.00-0.029) ng/mL Total Protein (6.3-8.2) g/dL Albumin (3.9-5) g/dL Cholesterol (50-199) mg/dL LDL Cholesterol Direct (50-130) mg/dL HDL Cholesterol (40-59) mg/dL Medications & Allergies - Medications Allergies/Adverse Reactions: Allergies No Known Allergies Allergy (Verified 12/07/18 22:19) Home Medications: Home Medications Medication Instructions Recorded Confirmed Last Taken Type tiZANidine [Zanaflex 4mg TAB] 4 mg PO DAILY 12/08/18 12/09/18 Unknown History traMADol [Ultram] 50 mg PO Q6HR PRN 12/08/18 12/09/18 Unknown History Cinacalcet HCl [Sensipar] 30 mg PO DAILY 12/09/18 12/09/18 Unknown History Cyclobenzaprine [Flexeril 10 MG 10 mg PO BID 12/09/18 12/09/18 Unknown History TAB] Gabapentin [Neurontin] 300 mg PO Q8HR 12/09/18 12/09/18 2 Days Ago History ~12/07/18 Hydrocodone-Acetamn 7.5-325/15 7.5 mg PO Q6H PRN 12/09/18 12/09/18 Unknown History Losartan Potassium 100 mg PO DAILY 12/09/18 12/09/18 Unknown History Active Medications: Generic Name Dose Route Start Last Admin Trade Name Freq PRN Reason Stop Dose Admin Acetaminophen 650 mg 12/08/18 01:14 12/11/18 05:02 Tylenol PO 650 mg Q4H PRN Administration Pain MILD(1-3)/Fever >100.5/GARCIA Acetaminophen/Hydrocodone Bitart 7.5 mg 12/09/18 11:51 12/10/18 09:42 [place] PO 7.5 mg Q6H PRN Administration Pain, Moderate (4-6) Cinacalcet 30 mg 12/10/18 10:00 12/11/18 11:49 Sensipar PO 30 mg DAILY LOBO Administration Cyclobenzaprine HCl 10 mg 12/09/18 22:00 12/11/18 22:49 Flexeril PO 10 mg BID LOBO Administration Gabapentin 300 mg 12/09/18 14:00 12/12/18 08:30 Neurontin PO Not Given Q8HR LOBO Hydralazine HCl 5 mg 12/07/18 23:21 12/08/18 18:47 Apresoline IV 5 mg Q6H PRN Administration Hypertension Sodium Chloride 100 mls @ 999 mls/hr 12/07/18 23:20 Nacl 0.9% IV FARNAZ PRN Hypotension Ceftriaxone Sodium 2 gm in 100 mls @ 200 mls/hr 12/10/18 12:00 12/12/18 10:36 Rocephin/Ns 2 Gm/100 Ml IV 100 mls/hr Q24HR LOBO Administration Protocol Levofloxacin/Dextrose 500 mg in 100 mls @ 100 mls/hr 12/12/18 10:00 12/12/18 09:41 Levaquin 500mg/100ml IV 100 mls/hr Q48HR LOBO Administration Sodium Bicarbonate 150 meq/ 1,150 mls @ 75 mls/hr 12/12/18 08:00 12/12/18 07:35 Dextrose IV 75 mls/hr DIRECT LOBO Administration Vasopressin 20 unit/ Sodium 101 mls @ 9.09 mls/hr 12/12/18 09:00 12/12/18 08:18 Chloride IV 0.03 units/min TITR LOBO 9.09 mls/hr Administration Protocol 0.03 UNITS/MIN Norepinephrine 4 mg in 250 mls @ 7.5 mls/hr 12/12/18 09:00 12/12/18 09:21 Levophed Drip 4 Mg/Ns 250 Ml IV 30 mcg/min TITR LOBO 112.5 mls/hr Administration Protocol 2 MCG/MIN Dopamine HCl/Dextrose 800 mg in 250 mls @ 4.778 mls/hr 12/12/18 07:00 12/12/18 09:05 Intropin Drip 800 Mg/D5w 250 Ml IV 20 mcg/kg/min TITR LOBO 47.775 mls/hr Titration Protocol 2 MCG/KG/MIN Vancomycin HCl 1 gm in 250 mls @ 167.007 mls/hr 12/12/18 10:00 12/12/18 10:04 Vancomycin/Ns 1 Gm/250 Ml IV 12/12/18 11:29 167.007 mls/hr ONCE ONE Administration Epinephrine 8 mg/ Sodium 250 mls @ 3.75 mls/hr 12/12/18 11:00 12/12/18 10:42 Chloride IV 2 mcg/min TITR LOBO 3.75 mls/hr Administration Protocol 2 MCG/MIN Losartan Potassium 50 mg 12/10/18 10:00 12/11/18 09:14 Cozaar PO Not Given QDAY LOBO Ondansetron HCl 4 mg 12/08/18 01:14 Zofran IV Q8H PRN Nausea And Vomiting Sodium Chloride 10 ml 12/08/18 10:00 12/11/18 22:50 Sodium Chloride Flush Syringe 10 Ml IV 10 ml BID LOBO Administration Sodium Chloride 10 ml 12/08/18 01:14 Sodium Chloride Flush Syringe 10 Ml IV PRN PRN LINE FLUSH Tizanidine HCl 4 mg 12/10/18 10:00 12/11/18 11:49 Zanaflex PO 4 mg DAILY LOBO Administration Tramadol HCl 50 mg 12/09/18 11:25 12/10/18 21:42 Ultram PO 50 mg Q6HR PRN Administration Pain
[2018-12-12] MEDS: COZAAR PO SCH (11:05)
[2018-12-12] MEDS ORDERED: KIONEX PO ONE (11:05)
[2018-12-12] MEDS: FLEXERIL PO SCH (11:07)
[2018-12-12] MEDS: ZANAFLEX PO SCH (11:07)
[2018-12-12] MEDS: SENSIPAR PO SCH (11:07)
[2018-12-12] MEDS: SODIUM CHLORIDE FLUSH SYRINGE 10 ML IV SCH (11:07)
--- NOTE | 2018-12-12 11:10 | Progress Note ---
Assessment and Plan Assessment and plan: Septic shock. Etiology secondary to group C strep bacteremia. ID following. Rocephin started. Obtain repeat blood cultures to document clearance. Obtain echo to rule out endocariditis. Lactic acid normal. Levaquin restarted. We'll also add vancomycin. Patient requiring 4 pressors currently. Metabolic acidosis. check lactate. cont bicarb drip s/p PEA arrest. Etiology unknown. Potentially secondary to above. Check echocardiogram and consult cardiology for further evaluation. Group C strep bacteremia. As above. ESRD. Malfunctioning Right AVF, Patient underwent unsuccessful thrombectomy of his graft. Patient will be able to undergo dialysis through a right common femoral vein Vascath. Vascular surgery following. Fluid restriction of 1 liter per day F/U CXR Hemodialysis per nephrology Hyperkalemia. Insulin/D50 and Kayexalate given HD per nephrology DM II Cont. SSRI and Accuchecks The high probability of a clinically significant, sudden or life threatening deterioration of the [hemodynamic, respiratory and renal] system(s) required my full and direct attention, intervention and personal management. The aggregate critical care time was [33] minutes. This time is in addition to time spent performing reported procedures but includes the following: [x] Data Review and interpretation [x] Patient assessment and monitoring of vital signs [x] Documentation [x] Medication orders and management History Interval history: Events of this morning noted. Patient reported to have PEA and ACLS protocol initiated. The patient received 3 epi, 2 sodium bicarb and calcium given, pulse restored. Patient has since required multiple pressors now on 4 total. Discussion with the family at the bedside with regards to poor prognosis. Patient is unresponsive with pupils mildly reactive. Hospitalist Physical - Constitutional Vitals: Temp Pulse Resp BP Pulse Ox 96.9 F L 118 H 22 90/24 98 12/12/18 08:29 12/12/18 09:22 12/11/18 23:34 12/12/18 09:22 12/12/18 09:22 General appearance: Present: severe distress, other (patient requiring 4 pressors, intubated on mechanical ventilation.) - EENT Eyes: Present: PERRL, EOM intact ENT: hearing intact, clear oral mucosa, dentition normal - Neck Neck: Present: supple, normal ROM - Respiratory Respiratory effort: normal Respiratory: bilateral: diminished, rhonchi - Cardiovascular Rhythm: regular Heart Sounds: Present: S1 & S2. Absent: gallop, rub - Extremities Extremities: no ischemia, No edema, Full ROM - Abdominal General gastrointestinal: soft, non-tender, non-distended, normal bowel sounds - Integumentary Integumentary: Present: clear, warm, dry - Neurologic Neurologic: CNII-XII intact, moves all extremities Results - Labs CBC & Chem 7: 12/11/18 05:38 12/12/18 08:00 Labs: Laboratory Last Values WBC 12.8 K/mm3 (4.5-11.0) H 12/11/18 05:38 RBC 3.63 M/mm3 (3.65-5.03) L 12/11/18 05:38 Hgb 11.4 gm/dl (11.8-15.2) L 12/11/18 05:38 Hct 35.4 % (35.5-45.6) L 12/11/18 05:38 MCV 98 fl (84-94) H 12/11/18 05:38 MCH 32 pg (28-32) 12/11/18 05:38 MCHC 32 % (32-34) 12/11/18 05:38 RDW 17.2 % (13.2-15.2) H 12/11/18 05:38 Plt Count 75 K/mm3 (140-440) L 12/11/18 05:38 Lymph % (Auto) 8.4 % (13.4-35.0) L 12/11/18 05:38 [place] % (Auto) 13.0 % (0.0-7.3) H 12/11/18 05:38 Eos % (Auto) 0.6 % (0.0-4.3) 12/11/18 05:38 Baso % (Auto) 0.4 % (0.0-1.8) 12/11/18 05:38 Lymph # 1.1 K/mm3 (1.2-5.4) L 12/11/18 05:38 [place] # 1.7 K/mm3 (0.0-0.8) H 12/11/18 05:38 Eos # 0.1 K/mm3 (0.0-0.4) 12/11/18 05:38 Baso # 0.1 K/mm3 (0.0-0.1) 12/11/18 05:38 Add Manual Diff Complete 12/08/18 07:06 Total Counted 100 12/08/18 07:06 Seg Neutrophils % 77.6 % (40.0-70.0) H 12/11/18 05:38 Seg Neuts % (Manual) 93.0 % (40.0-70.0) H 12/08/18 07:06 0 % 12/08/18 07:06 6.0 % (13.4-35.0) L 12/08/18 07:06 Reactive Lymphs % (Man) 0 % 12/08/18 07:06 1.0 % (0.0-7.3) 12/08/18 07:06 0 % (0.0-4.3) 12/08/18 07:06 0 % (0.0-1.8) 12/08/18 07:06 0 % 12/08/18 07:06 0 % 12/08/18 07:06 0 % 12/08/18 07:06 0 % 12/08/18 07:06 Nucleated RBC % Not Reportable 12/08/18 07:06 Seg Neutrophils # 10.0 K/mm3 (1.8-7.7) H 12/11/18 05:38 Seg Neutrophils # Man 18.1 K/mm3 (1.8-7.7) H 12/08/18 07:06 Band Neutrophils # 0.0 K/mm3 12/08/18 07:06 1.2 K/mm3 (1.2-5.4) 12/08/18 07:06 Abs React Lymphs (Man) 0.0 K/mm3 12/08/18 07:06 0.2 K/mm3 (0.0-0.8) 12/08/18 07:06 0.0 K/mm3 (0.0-0.4) 12/08/18 07:06 0.0 K/mm3 (0.0-0.1) 12/08/18 07:06 0.0 K/mm3 12/08/18 07:06 0.0 K/mm3 12/08/18 07:06 0.0 K/mm3 12/08/18 07:06 Blast Cells # 0.0 K/mm3 12/08/18 07:06 WBC Morphology Not Reportable 12/08/18 07:06 Hypersegmented Neuts Not Reportable 12/08/18 07:06 Hyposegmented Neuts Not Reportable 12/08/18 07:06 Hypogranular Neuts Not Reportable 12/08/18 07:06 Not Reportable 12/08/18 07:06 Not Reportable 12/08/18 07:06 Not Reportable 12/08/18 07:06 Not Reportable 12/08/18 07:06 Not Reportable 12/08/18 07:06 Not Reportable 12/08/18 07:06 Consistent w auto 12/08/18 07:06 Not Reportable 12/08/18 07:06 Plt Clumps, EDTA Not Reportable 12/08/18 07:06 Not Reportable 12/08/18 07:06 Not Reportable 12/08/18 07:06 Not Reportable 12/08/18 07:06 Plt Morphology Comment Not Reportable 12/08/18 07:06 RBC Morphology Not Reportable 12/08/18 07:06 Dimorphic RBCs Not Reportable 12/08/18 07:06 Not Reportable 12/08/18 07:06 Not Reportable 12/08/18 07:06 Few 12/08/18 07:06 Few 12/08/18 07:06 Not Reportable 12/08/18 07:06 Not Reportable 12/08/18 07:06 Not Reportable 12/08/18 07:06 Not Reportable 12/08/18 07:06 Not Reportable 12/08/18 07:06 Not Reportable 12/08/18 07:06 Not Reportable 12/08/18 07:06 Rare 12/08/18 07:06 Not Reportable 12/08/18 07:06 Not Reportable 12/08/18 07:06 Not Reportable 12/08/18 07:06 Not Reportable 12/08/18 07:06 Not Reportable 12/08/18 07:06 Not Reportable 12/08/18 07:06 Not Reportable 12/08/18 07:06 Acanthocytes (Spur) Not Reportable 12/08/18 07:06 [place]leaux Not Reportable 12/08/18 07:06 Not Reportable 12/08/18 07:06 Not Reportable 12/08/18 07:06 Not Reportable 12/08/18 07:06 Not Reportable 12/08/18 07:06 Hem Pathologist Commnt No 12/08/18 07:06 POC ABG pH 7.099 (7.35-7.45) L 12/12/18 07:00 POC ABG pCO2 31.4 (35-45) L 12/12/18 07:00 POC ABG pO2 98 (80-105) 12/12/18 07:00 POC ABG HCO3 9.7 (22-26 mml/L) 12/12/18 07:00 POC ABG Total CO2 11 (23-27mmol/L) 12/12/18 07:00 POC ABG O2 Sat 95 12/12/18 07:00 POC ABG Base Excess -20 ((-2) - (+3)mmol/L) 12/12/18 07:00 100 % 12/12/18 07:00 Sodium 145 mmol/L (137-145) 12/12/18 08:00 Potassium 6.2 mmol/L (3.6-5.0) H* D 12/12/18 08:00 Chloride 91.4 mmol/L (98-107) L 12/12/18 08:00 Carbon Dioxide 15 mmol/L (22-30) L 12/12/18 08:00 45 mmol/L 12/12/18 08:00 BUN 34 mg/dL (9-20) H 12/12/18 08:00 8.7 mg/dL (0.8-1.5) H D 12/12/18 08:00 Estimated GFR 8 ml/min 12/12/18 08:00 4 % 12/12/18 08:00 Glucose 84 mg/dL (75-100) 12/12/18 08:00 POC Glucose 151 (70-105) H 12/12/18 07:45 8.4 % (4-6) H 12/08/18 07:06 Lactic Acid 4.70 mmol/L (0.7-2.0) H* 12/12/18 06:45 Calcium 9.9 mg/dL (8.4-10.2) D 12/12/18 08:00 Magnesium 1.20 mg/dL (1.7-2.3) L 12/12/18 06:30 0.50 mg/dL (0.1-1.2) 12/12/18 06:30 0.4 mg/dL (0-0.2) H 12/12/18 06:30 0.1 mg/dL 12/12/18 06:30 AST 94 units/L (5-40) H 12/12/18 06:30 ALT 38 units/L (7-56) 12/12/18 06:30 51 units/L (35-129) 12/12/18 06:30 340 units/L (55-170) H 12/12/18 06:30 CK-MB (CK-2) 1.3 ng/mL (0.0-4.0) 12/12/18 06:30 CK-MB (CK-2) Rel Index 0.3 (0-4) 12/12/18 06:30 0.186 ng/mL (0.00-0.029) H* 12/12/18 06:30 3.7 g/dL (6.3-8.2) L D 12/12/18 06:30 1.7 g/dL (3.9-5) L 12/12/18 06:30 0.9 % 12/12/18 06:30 Triglycerides 61 mg/dL (2-149) 12/12/18 06:30 Cholesterol 10 mg/dL (50-199) L 12/12/18 06:30 4 mg/dL (50-130) L 12/12/18 06:30 < 3 mg/dL (40-59) L 12/12/18 06:30 3.00 % 12/12/18 06:30 Hepatitis A IgM Ab Non-reactive (NonReactive) 12/07/18 00:20 Hep Bs Antigen Non-reactive (Negative) 12/07/18 00:20 Hep B Core IgM Ab Non-reactive (NonReactive) 12/07/18 00:20 Non-reactive (NonReactive) 12/07/18 00:20 Active Medications - Current Medications Current Medications: Generic Name Dose Route Start Last Admin Trade Name Freq PRN Reason Stop Dose Admin Acetaminophen 650 mg 12/08/18 01:14 12/11/18 05:02 Tylenol PO 650 mg Q4H PRN Administration Pain MILD(1-3)/Fever >100.5/GARCIA Acetaminophen/Hydrocodone Bitart 7.5 mg 12/09/18 11:51 12/10/18 09:42 [place] PO 7.5 mg Q6H PRN Administration Pain, Moderate (4-6) Cinacalcet 30 mg 12/10/18 10:00 12/11/18 11:49 Sensipar PO 30 mg DAILY LOBO Administration Cyclobenzaprine HCl 10 mg 12/09/18 22:00 12/11/18 22:49 Flexeril PO 10 mg BID LOBO Administration Gabapentin 300 mg 12/09/18 14:00 12/12/18 08:30 Neurontin PO Not Given Q8HR LOBO Hydralazine HCl 5 mg 12/07/18 23:21 12/08/18 18:47 Apresoline IV 5 mg Q6H PRN Administration Hypertension Sodium Chloride 100 mls @ 999 mls/hr 12/07/18 23:20 Nacl 0.9% IV FARNAZ PRN Hypotension Ceftriaxone Sodium 2 gm in 100 mls @ 200 mls/hr 12/10/18 12:00 12/12/18 10:36 Rocephin/Ns 2 Gm/100 Ml IV 100 mls/hr Q24HR LOBO Administration Protocol Levofloxacin/Dextrose 500 mg in 100 mls @ 100 mls/hr 12/12/18 10:00 12/12/18 09:41 Levaquin 500mg/100ml IV 100 mls/hr Q48HR LOBO Administration Sodium Bicarbonate 150 meq/ 1,150 mls @ 75 mls/hr 12/12/18 08:00 12/12/18 07:35 Dextrose IV 75 mls/hr DIRECT LOBO Administration Vasopressin 20 unit/ Sodium 101 mls @ 9.09 mls/hr 12/12/18 09:00 12/12/18 08:18 Chloride IV 0.03 units/min TITR LOBO 9.09 mls/hr Administration Protocol 0.03 UNITS/MIN Norepinephrine 4 mg in 250 mls @ 7.5 mls/hr 12/12/18 09:00 12/12/18 09:21 Levophed Drip 4 Mg/Ns 250 Ml IV 30 mcg/min TITR OLBO 112.5 mls/hr Administration Protocol 2 MCG/MIN Dopamine HCl/Dextrose 800 mg in 250 mls @ 4.778 mls/hr 12/12/18 07:00 12/12/18 09:05 Intropin Drip 800 Mg/D5w 250 Ml IV 20 mcg/kg/min TITR LOBO 47.775 mls/hr Titration Protocol 2 MCG/KG/MIN Vancomycin HCl 1 gm in 250 mls @ 167.007 mls/hr 12/12/18 10:00 12/12/18 10:04 Vancomycin/Ns 1 Gm/250 Ml IV 12/12/18 11:29 167.007 mls/hr ONCE ONE Administration Epinephrine 8 mg/ Sodium 250 mls @ 3.75 mls/hr 12/12/18 11:00 12/12/18 10:42 Chloride IV 2 mcg/min TITR LOBO 3.75 mls/hr Administration Protocol 2 MCG/MIN Losartan Potassium 50 mg 12/10/18 10:00 12/11/18 09:14 Cozaar PO Not Given QDAY LOBO Ondansetron HCl 4 mg 12/08/18 01:14 Zofran IV Q8H PRN Nausea And Vomiting Sodium Chloride 10 ml 12/08/18 10:00 12/11/18 22:50 Sodium Chloride Flush Syringe 10 Ml IV 10 ml BID LOBO Administration Sodium Chloride 10 ml 12/08/18 01:14 Sodium Chloride Flush Syringe 10 Ml IV PRN PRN LINE FLUSH Tizanidine HCl 4 mg 12/10/18 10:00 12/11/18 11:49 Zanaflex PO 4 mg DAILY LOBO Administration Tramadol HCl 50 mg 12/09/18 11:25 12/10/18 21:42 Ultram PO 50 mg Q6HR PRN Administration Pain Nutrition/Malnutrition Assess - Dietary Evaluation Nutrition/Malnutrition Findings: Nutrition Notes Start: 12/08/18 12:14 Freq: Status: Active Protocol: Document 12/10/18 16:14 RM (Rec: 12/10/18 16:19 [id number]) Nutrition Notes Initial or Follow up Reassessment Current Diagnosis CKD (stage V CKD),Diabetes, Hypertension Other Pertinent Diagnosis on HD Current Diet Renal w/Nepro Vanilla BID Labs/Tests Reviewed Pertinent Medications Reviewed Height 5 ft 10 in Weight 127.1 kg [place] Body Weight (kg) 75.45 BMI 40.1 Weight change and time frame Noted wt increase. Likely d/t fluid change. Subjective/Other Information Pt asleep at time of visit. Per pt tech pt is eating all of his meals and drinking the Nepro. Percent of energy/protein needs met: 100%/100% Burn Absent Trauma Absent #1 Nutrition Diagnosis Inadequate oral intake Diagnosis Progress(for reassessment Continues documentation) Is patient on ventilator? No Is Patient Ambulatory and/or Out of Bed Yes REE-([facility]-ambulatory/OOB) [ 2745.925 [id number]] Kcal/Kg value to use for calculation 18 Approximate Energy Requirements Using 2288 kcal/Kg Calculation Used for Recommendations Kcal/kg Additional Notes Protein needs are 103-120g (1. 2-1.4g/kg Adjusted wt 86kg) Fluis needs are 1000-1500ml Nutrition Intervention Change Diet Order: Continue Add Supplement/Snack (indicate name/kcal Nepro vanilla BID /protein ) Provides kCal: 950 Provides Protein (gm) 50 Goal #1 Continue to meet at least 75% of kcal and protein needs Anticipated Discharge Needs: Renal consistent CHO with ONS daily to BID Follow-Up By: 12/15/18 Additional Comments Follow PO and ONS intakes
[2018-12-12 11:14] LABS: Mean Corpuscular HGB Conc 29 % (32-34); Red Blood Count 2.32 M/mm3 (3.65-5.03); Red Cell Distribution Width 18.8 % (13.2-15.2)
[2018-12-12 11:21] LABS: Hematocrit 25.6 % (35.5-45.6); Hemoglobin 7.5 gm/dl (11.8-15.2); Mean Corpuscular Volume 111 fl (84-94); Platelet Count 44 K/mm3 (140-440)
[2018-12-12 11:30] LABS: Calcium 8.8 mg/dL (8.4-10.2)
--- NOTE | 2018-12-12 11:43 | Consultation ---
History of Present Illness Consult date: 12/12/18 Requesting physician: RATNA ZEPEDA Reason for consult: other (s/p cardiopulmonary arrest with ROSC, acute hypoxic respiraotry failure on MVS, severe sepsis) History of present illness: 53 yo M PMHx HTN, DM2, ESRD on HD admitted with SOB and edema, found to be bacteremic s/p AVF manipulation, needed right femoral vascath. TTE did not show any vegetations. ID and vascular, renal are on consult s/p PEA arrest this morning. Prolonged resuscitation, intubated, with ROSC, severe metabolic acidosis, transferred to the ICU. I have been consulted for critical care management. Patient was seen and examined. Vitals , labs, medications, chart and imaging reviewed. Niece and nephews at the bedside. He is orally intubated, size 8.0 ETT, 24 cm at the lip On norepinephrine, vasopressin and dopamine, maximal doses AC-VC 30/500/ 6/100% Unresponsive Past History Past Medical History: diabetes, dialysis, ESRD, hypertension Past Surgical History: No surgical history Social history: no significant social history. denies: smoking, alcohol abuse Family history: diabetes Medications and Allergies Allergies Allergy/AdvReac Type Severity Reaction Status Date / Time No Known Allergies Allergy Verified 12/07/18 22:19 Home Medications Medication Instructions Recorded Confirmed Last Taken Type tiZANidine [Zanaflex 4mg TAB] 4 mg PO DAILY 12/08/18 12/09/18 Unknown History traMADol [Ultram] 50 mg PO Q6HR PRN 12/08/18 12/09/18 Unknown History Cinacalcet HCl [Sensipar] 30 mg PO DAILY 12/09/18 12/09/18 Unknown History Cyclobenzaprine [Flexeril 10 MG 10 mg PO BID 12/09/18 12/09/18 Unknown History TAB] Gabapentin [Neurontin] 300 mg PO Q8HR 12/09/18 12/09/18 2 Days Ago History ~12/07/18 Hydrocodone-Acetamn 7.5-325/15 7.5 mg PO Q6H PRN 12/09/18 12/09/18 Unknown History Losartan Potassium 100 mg PO DAILY 12/09/18 12/09/18 Unknown History Active Meds: Active Medications Acetaminophen (Tylenol) 650 mg PO Q4H PRN PRN Reason: Pain MILD(1-3)/Fever >100.5/GARCIA Last Admin: 12/11/18 05:02 Dose: 650 mg Documented by: Acetaminophen/Hydrocodone Bitart ([place]) 7.5 mg PO Q6H PRN PRN Reason: Pain, Moderate (4-6) Last Admin: 12/10/18 09:42 Dose: 7.5 mg Documented by: Cinacalcet (Sensipar) 30 mg PO DAILY [facility] Last Admin: 12/12/18 11:07 Dose: Not Given Documented by: Cyclobenzaprine HCl (Flexeril) 10 mg PO BID LOBO Last Admin: 12/12/18 11:07 Dose: Not Given Documented by: Gabapentin (Neurontin) 300 mg PO Q8HR LOBO Last Admin: 12/12/18 08:30 Dose: Not Given Documented by: Hydralazine HCl (Apresoline) 5 mg IV Q6H PRN PRN Reason: Hypertension Last Admin: 12/08/18 18:47 Dose: 5 mg Documented by: Sodium Chloride (Nacl 0.9%) 100 mls @ 999 mls/hr IV FARNAZ PRN PRN Reason: Hypotension Ceftriaxone Sodium (Rocephin/Ns 2 Gm/100 Ml) 2 gm in 100 mls @ 200 mls/hr IV Q24HR LOBO; Protocol Last Admin: 12/12/18 10:36 Dose: 100 mls/hr Documented by: Levofloxacin/Dextrose (Levaquin 500mg/100ml) 500 mg in 100 mls @ 100 mls/hr IV Q48HR LOBO Last Admin: 12/12/18 09:41 Dose: 100 mls/hr Documented by: Sodium Bicarbonate 150 meq/ (Dextrose) 1,150 mls @ 75 mls/hr IV DIRECT LOBO Last Admin: 12/12/18 07:35 Dose: 75 mls/hr Documented by: Vasopressin 20 unit/ Sodium (Chloride) 101 mls @ 9.09 mls/hr IV TITR LOBO; Protocol Last Admin: 12/12/18 08:18 Dose: 0.03 units/min, 9.09 mls/hr Documented by: Norepinephrine (Levophed Drip 4 Mg/Ns 250 Ml) 4 mg in 250 mls @ 7.5 mls/hr IV TITR [facility]; Protocol Last Admin: 12/12/18 09:21 Dose: 30 mcg/min, 112.5 mls/hr Documented by: Dopamine HCl/Dextrose (Intropin Drip 800 Mg/D5w 250 Ml) 800 mg in 250 mls @ 4.778 mls/hr IV TITR [facility]; Protocol Last Admin: 12/12/18 11:01 Dose: 20 mcg/kg/min, 47.775 mls/hr Documented by: Epinephrine 8 mg/ Sodium (Chloride) 250 mls @ 3.75 mls/hr IV TITR [facility]; Protocol Last Titration: 12/12/18 11:20 Dose: 6 mcg/min, 11.25 mls/hr Documented by: Sodium Chloride (Nacl 0.9%) 100 mls @ 999 mls/hr IV FARNAZ PRN PRN Reason: Hypotension Losartan Potassium (Cozaar) 50 mg PO QDAY [facility] Last Admin: 12/12/18 11:05 Dose: Not Given Documented by: Ondansetron HCl (Zofran) 4 mg IV Q8H PRN PRN Reason: Nausea And Vomiting Sodium Chloride (Sodium Chloride Flush Syringe 10 Ml) 10 ml IV BID [facility] Last Admin: 12/12/18 11:07 Dose: 10 ml Documented by: Sodium Chloride (Sodium Chloride Flush Syringe 10 Ml) 10 ml IV PRN PRN PRN Reason: LINE FLUSH Tizanidine HCl (Zanaflex) 4 mg PO DAILY [facility] Last Admin: 12/12/18 11:07 Dose: Not Given Documented by: Tramadol HCl (Ultram) 50 mg PO Q6HR PRN PRN Reason: Pain Last Admin: 12/10/18 21:42 Dose: 50 mg Documented by: Review of Systems ROS unobtainable: due to endotracheal tube, due to mental status Physical Examination Vital signs: Vital Signs Temp Pulse Resp BP Pulse Ox 99.5 F 92 H 22 173/94 94 12/07/18 21:16 12/07/18 21:16 12/07/18 21:16 12/07/18 21:16 12/07/18 21:16 Reviewed General appearance: no acute distress, other (unresponsive, not on any seadtion, morbidly obese) Eyes: non-icteric, other (fixed dilated pupils, no pupillary reaction to light) ENT: oropharynx dry Neck: supple, no JVD, other (old trachesotomy scar) Effort: normal Ascultation: Bilateral: diminished breath sounds Cardiovascular: regular rate and rhythm, other (S1,S2) Gastrointestinal: normoactive bowel sounds, soft, non-tender, non-distended Integumentary: other (Right femoral trialysis catheter) Extremities: no cyanosis, cool Musculoskeletal: other (chronic venous stasis chages, hyperpigmentation) other (Unresponsive) other (unable to assess due to mental status) Results - Laboratory Findings CBC and BMP: 12/12/18 06:30 12/12/18 11:00 ABG POC ABG pH 7.099 (7.35-7.45) L 12/12/18 07:00 POC ABG pCO2 31.4 (35-45) L 12/12/18 07:00 POC ABG pO2 98 (80-105) 12/12/18 07:00 POC ABG HCO3 9.7 (22-26 mml/L) 12/12/18 07:00 POC ABG Total CO2 11 (23-27mmol/L) 12/12/18 07:00 POC ABG O2 Sat 95 12/12/18 07:00 Abnormal lab findings: Abnormal Labs 12/07/18 12/07/18 12/08/18 20:56 20:56 07:06 WBC RBC Hgb Hct MCV 96 H MCHC RDW 16.9 H Plt Count 111 L Lymph % (Auto) [place] % (Auto) Lymph # [place] # Seg Neutrophils % Seg Neuts % (Manual) Lymphocytes % (Manual) Seg Neutrophils # Seg Neutrophils # Man POC ABG pH POC ABG pCO2 POC ABG pO2 Sodium 136 L Potassium 6.0 H Chloride 93.7 L Carbon Dioxide 20 L BUN 57 H Creatinine 11.8 H Glucose 164 H POC Glucose Hemoglobin A1c 8.4 H Lactic Acid Calcium Magnesium Direct Bilirubin AST Total Creatine Kinase Troponin T Total Protein 8.8 H Albumin Cholesterol LDL Cholesterol Direct HDL Cholesterol 12/08/18 12/08/18 12/09/18 07:06 07:06 05:24 WBC 19.5 H RBC Hgb 11.7 L Hct MCV 97 H MCHC RDW 17.0 H Plt Count 96 L Lymph % (Auto) [place] % (Auto) Lymph # [place] # Seg Neutrophils % Seg Neuts % (Manual) 93.0 H Lymphocytes % (Manual) 6.0 L Seg Neutrophils # Seg Neutrophils # Man 18.1 H POC ABG pH POC ABG pCO2 POC ABG pO2 Sodium 135 L Potassium 5.6 H Chloride 93.8 L 91.0 L Carbon Dioxide BUN 41 H 32 H Creatinine 10.1 H 8.6 H Glucose 146 H 208 H POC Glucose Hemoglobin A1c Lactic Acid Calcium Magnesium Direct Bilirubin AST Total Creatine Kinase Troponin T Total Protein Albumin Cholesterol LDL Cholesterol Direct HDL Cholesterol 12/10/18 12/10/18 12/10/18 06:33 06:33 17:41 WBC 12.3 H RBC 3.59 L Hgb 11.3 L Hct 35.0 L MCV 98 H MCHC RDW 17.3 H Plt Count 73 L Lymph % (Auto) 4.6 L [place] % (Auto) 10.3 H Lymph # 0.6 L [place] # 1.3 H Seg Neutrophils % 84.9 H Seg Neuts % (Manual) Lymphocytes % (Manual) Seg Neutrophils # 10.5 H Seg Neutrophils # Man POC ABG pH 7.344 L POC ABG pCO2 51.9 H POC ABG pO2 73 L Sodium 132 L Potassium Chloride 90.5 L Carbon Dioxide BUN 31 H Creatinine 8.3 H Glucose 282 H POC Glucose Hemoglobin A1c Lactic Acid Calcium Magnesium Direct Bilirubin AST Total Creatine Kinase Troponin T Total Protein Albumin Cholesterol LDL Cholesterol Direct HDL Cholesterol 12/11/18 12/11/18 12/12/18 05:38 05:38 05:46 WBC 12.8 H RBC 3.63 L Hgb 11.4 L Hct 35.4 L MCV 98 H MCHC RDW 17.2 H Plt Count 75 L Lymph % (Auto) 8.4 L [place] % (Auto) 13.0 H Lymph # 1.1 L [place] # 1.7 H Seg Neutrophils % 77.6 H Seg Neuts % (Manual) Lymphocytes % (Manual) Seg Neutrophils # 10.0 H Seg Neutrophils # Man POC ABG pH POC ABG pCO2 POC ABG pO2 Sodium 129 L Potassium Chloride 86.5 L Carbon Dioxide BUN 47 H Creatinine 9.7 H Glucose 356 H POC Glucose 180 H Hemoglobin A1c Lactic Acid Calcium 8.2 L Magnesium Direct Bilirubin AST Total Creatine Kinase Troponin T Total Protein Albumin Cholesterol LDL Cholesterol Direct HDL Cholesterol 12/12/18 12/12/18 12/12/18 06:30 06:30 06:36 WBC RBC 2.32 L Hgb 7.5 L D Hct 25.6 L D MCV 111 H MCHC 29 L RDW 18.8 H Plt Count 44 L Lymph % (Auto) [place] % (Auto) Lymph # [place] # Seg Neutrophils % Seg Neuts % (Manual) Lymphocytes % (Manual) Seg Neutrophils # Seg Neutrophils # Man POC ABG pH POC ABG pCO2 POC ABG pO2 Sodium Potassium 2.7 L* D Chloride 114.3 H Carbon Dioxide 9 L* D BUN Creatinine 4.6 H D Glucose 221 H POC Glucose 176 H Hemoglobin A1c Lactic Acid Calcium 4.4 L* D Magnesium 1.20 L Direct Bilirubin 0.4 H AST 94 H Total Creatine Kinase 340 H Troponin T 0.186 H* Total Protein 3.7 L D Albumin 1.7 L Cholesterol 10 L LDL Cholesterol Direct 4 L HDL Cholesterol < 3 L 12/12/18 12/12/18 12/12/18 06:45 07:00 07:45 WBC RBC Hgb Hct MCV MCHC RDW Plt Count Lymph % (Auto) [place] % (Auto) Lymph # [place] # Seg Neutrophils % Seg Neuts % (Manual) Lymphocytes % (Manual) Seg Neutrophils # Seg Neutrophils # Man POC ABG pH 7.099 L POC ABG pCO2 31.4 L POC ABG pO2 Sodium Potassium Chloride Carbon Dioxide BUN Creatinine Glucose POC Glucose 151 H Hemoglobin A1c Lactic Acid 4.70 H* Calcium Magnesium Direct Bilirubin AST Total Creatine Kinase Troponin T Total Protein Albumin Cholesterol LDL Cholesterol Direct HDL Cholesterol 12/12/18 12/12/18 08:00 11:00 WBC RBC Hgb Hct MCV MCHC RDW Plt Count Lymph % (Auto) [place] % (Auto) Lymph # [place] # Seg Neutrophils % Seg Neuts % (Manual) Lymphocytes % (Manual) Seg Neutrophils # Seg Neutrophils # Man POC ABG pH POC ABG pCO2 POC ABG pO2 Sodium Potassium 6.2 H* D 5.4 H Chloride 91.4 L 90.4 L Carbon Dioxide 15 L BUN 34 H 34 H Creatinine 8.7 H D 8.6 H Glucose POC Glucose Hemoglobin A1c Lactic Acid Calcium Magnesium Direct Bilirubin AST Total Creatine Kinase Troponin T Total Protein Albumin Cholesterol LDL Cholesterol Direct HDL Cholesterol - Diagnostic Findings Chest x-ray: image reviewed (ETT in good position, no acute infiltrates) Assessment and Plan -Severe sepsis with septic shock -s/p Cardiopulmonary arrest, PEA -Severe lactic acidosis and metabolic acidosis -Strep bacteremia -ESRD on HD -Malfunctioning of AV fistula -Thrombocytopenia -Morbid obesity -Acute metabolic encephalopathy -Continue with volume resuscitation, with severe lactic acidosis and high negative base excess, he remains intravasculary depleted -VAP bundle addressed -Adjust minute ventilation for better gas exchange -Serial ABG, BMP -May need CVVHD if acidosis is not improving with volume -Bicarbonate infusion for pH <7.1 -Wean supplemental oxygen for O2 sats>90% -Accuchecks with glycemic control -Add epinephrine to vasopressor to keep MAP>65 -VAP bundle addressed -Aspiration precautions, keep HOB >40 -SCD for VTE prophylaxis for now -Intra-arterial line for invasive hemodynamic monitoring -Sepsis protocol -Stress ulcer prophylaxis -Initiate enteral feeding within the next 72 hours -Antibitoics per ID -Will need KENISHA if persistent bacteremia -With ROSC would have benefitted from target temperature therapy for preservation of neurologic function CONDITION: CRITICAL PROGNOSIS; GUARDED CODE STATUS: FULL Discussed care plan with RT and RN. Discussed with Dr. Zepeda Updated the family at the bedside- re poor prognosis. Will continue to evaluate patient, plan to get EEG, evaluate brain function in the next 24-48 hours. The high probability of a clinically significant, sudden or life threatening deterioration of the cardiovascular,pulmonary, renal system(s) required my full and direct attention, intervention and personal management. The aggregate crit ical care time was [75] minutes. This time is in addition to time spent performing reported procedures but includes the following: [x] Data Review and interpretation [x]Patient assessment and monitoring of vital signs [x] Documentation [x] Medication orders and management
[2018-12-12] MEDS ORDERED: LACTATED RINGERS 1,000 ML IV ONE (12:01)
--- NOTE | 2018-12-12 12:14 | XRay Report ---
ABDOMEN 1 VIEW INDICATION / CLINICAL INFORMATION: confirm OGT. COMPARISON: None available. FINDINGS: TUBES / LINES: The tip of the esophagogastric tube is present in the distal stomach in expected posit ion. BOWEL GAS PATTERN: No significant abnormality. FREE AIR / EXTRALUMINAL GAS: None seen. ADDITIONAL FINDINGS: No significant additional findings. IMPRESSION: 1. Esophagogastric tube in expected position. Signer Name: Ellen Saldana MD Signed: 12/12/2018 12:10 PM Workstation Name: [id number]
[2018-12-12 12:24] LABS: Anisocytosis 1+; Band Neutrophils # (Manual) 0.4 K/mm3; Basophils % (Manual) 0 % (0.0-1.8); Large Platelets Few; Macrocytosis 1+; Platelet Estimate Consistent w Auto; Total Cells Counted 100
[2018-12-12 12:25] LABS: Burr Cells Few; Hypochromasia 2+; Poikilocytosis 1+
--- NOTE | 2018-12-12 12:56 | Event Note ---
Date: 12/12/18 Hemodynamically normal on current drips. Dark blood from OGT -place on low intermittent suction and initiate a PPI infusion. Kaylexalate to be administered NC Wean dopamine first once he is stable to start weaning infusions. Asked charge nurse to get femoral a line kit for charles placement for invasive hemodynamic monitoring
[2018-12-12] MEDS: PROTONIX 80 MG in NACL 0.9% 100 ML IV SCH ×2 (13:41→23:30)
[2018-12-12] MEDS ORDERED: LACTATED RINGERS 500 ML IV ONE (15:00)
--- NOTE | 2018-12-12 15:14 | Gastroenterology Consultation ---
History of Present Illness - Reason for Consult Consult date: 12/12/18 gi bleed Requesting physician: GAVIN SANTANA - History of Present Illness This is a 53 yo male with pmh of ESRD from [place] admitted on 12/07/2018 for sob and fluid overload. He was found to be bacteremia and being treated for sepsis. Also underwent vas cath placement on 12/11/2018 for thrombosis upper access. He had coded this morning complicated with prolonged code but eventual ROSC. He is intubated and on multiple pressors. GI consulted for bloody output from the OG tube. Hgb noted to drop from 11 to 7 overnight and repeat cbc with hgb at 12 and platelet down to 30s. No stools per nursing. Per family (niece), no prior h/o GI bleed or liver disease known. Past History Past Medical History: diabetes, dialysis, ESRD, hypertension Past Surgical History: No surgical history Social history: no significant social history. denies: smoking, alcohol abuse Family history: diabetes Medications and Allergies Allergies Allergy/AdvReac Type Severity Reaction Status Date / Time No Known Allergies Allergy Verified 12/07/18 22:19 Home Medications Medication Instructions Recorded Confirmed Last Taken Type RX: tiZANidine [Zanaflex 4mg TAB] 4 mg PO DAILY 12/08/18 12/09/18 Unknown Histor y traMADol [Ultram] 50 mg PO Q6HR PRN 12/08/18 12/09/18 Unknown History Cinacalcet HCl [Sensipar] 30 mg PO DAILY 12/09/18 12/09/18 Unknown History Gabapentin [Neurontin] 300 mg PO Q8HR 12/09/18 12/09/18 2 Days Ago History ~12/07/18 Hydrocodone-Acetamn 7.5-325/15 7.5 mg PO Q6H PRN 12/09/18 12/09/18 Unknown History Losartan Potassium 100 mg PO DAILY 12/09/18 12/09/18 Unknown History RX: Cyclobenzaprine [Flexeril 10 10 mg PO BID 12/09/18 12/09/18 Unknown History MG TAB] Active Meds: Active Medications Acetaminophen (Tylenol) 650 mg PO Q4H PRN PRN Reason: Pain MILD(1-3)/Fever >100.5/GARCIA Last Admin: 12/11/18 05:02 Dose: 650 mg Documented by: Acetaminophen/Hydrocodone Bitart ([place]) 7.5 mg PO Q6H PRN PRN Reason: Pain, Moderate (4-6) Last Admin: 12/10/18 09:42 Dose: 7.5 mg Documented by: Cinacalcet (Sensipar) 30 mg PO DAILY [facility] Last Admin: 12/12/18 11:07 Dose: Not Given Documented by: Cyclobenzaprine HCl (Flexeril) 10 mg PO BID LOBO Last Admin: 12/12/18 11:07 Dose: Not Given Documented by: Gabapentin (Neurontin) 300 mg PO Q8HR LOBO Last Admin: 12/12/18 14:20 Dose: Not Given Documented by: Hydralazine HCl (Apresoline) 5 mg IV Q6H PRN PRN Reason: Hypertension Last Admin: 12/08/18 18:47 Dose: 5 mg Documented by: Sodium Chloride (Nacl 0.9%) 100 mls @ 999 mls/hr IV FARNAZ PRN PRN Reason: Hypotension Ceftriaxone Sodium (Rocephin/Ns 2 Gm/100 Ml) 2 gm in 100 mls @ 200 mls/hr IV Q24HR LOBO; Protocol Last Admin: 12/12/18 10:36 Dose: 100 mls/hr Documented by: Levofloxacin/Dextrose (Levaquin 500mg/100ml) 500 mg in 100 mls @ 100 mls/hr IV Q48HR LOBO Last Admin: 12/12/18 09:41 Dose: 100 mls/hr Documented by: Sodium Bicarbonate 150 meq/ (Dextrose) 1,150 mls @ 75 mls/hr IV DIRECT LOBO Last Admin: 12/12/18 07:35 Dose: 75 mls/hr Documented by: Vasopressin 20 unit/ Sodium (Chloride) 101 mls @ 9.09 mls/hr IV TITR LOBO; Protocol Last Admin: 12/12/18 08:18 Dose: 0.03 units/min, 9.09 mls/hr Documented by: Norepinephrine (Levophed Drip 4 Mg/Ns 250 Ml) 4 mg in 250 mls @ 7.5 mls/hr IV TITR LOBO; Protocol Last Admin: 12/12/18 14:19 Dose: 30 mcg/min, 112.5 mls/hr Documented by: Dopamine HCl/Dextrose (Intropin Drip 800 Mg/D5w 250 Ml) 800 mg in 250 mls @ 4.778 mls/hr IV TITR LOBO; Protocol Last Admin: 12/12/18 11:01 Dose: 20 mcg/kg/min, 47.775 mls/hr Documented by: Epinephrine 8 mg/ Sodium (Chloride) 250 mls @ 3.75 mls/hr IV TITR LOBO; Protocol Last Titration: 12/12/18 14:41 Dose: 10 mcg/min, 18.75 mls/hr Documented by: Sodium Chloride (Nacl 0.9%) 100 mls @ 999 mls/hr IV FARNAZ PRN PRN Reason: Hypotension Pantoprazole Sodium 80 mg/ (Sodium Chloride) 100 mls @ 10 mls/hr IV DIRECT LOBO Last Admin: 12/12/18 13:41 Dose: 8 mg/hr, 10 mls/hr Documented by: Lactated Ringer's (Lactated Ringers) 500 mls @ 999 mls/hr IV BOLUS ONE Stop: 12/12/18 15:30 Last Admin: 12/12/18 14:56 Dose: 999 mls/hr Documented by: Losartan Potassium (Cozaar) 50 mg PO QDAY [facility] Last Admin: 12/12/18 11:05 Dose: Not Given Documented by: Ondansetron HCl (Zofran) 4 mg IV Q8H PRN PRN Reason: Nausea And Vomiting Sodium Chloride (Sodium Chloride Flush Syringe 10 Ml) 10 ml IV BID [facility] Last Admin: 12/12/18 11:07 Dose: 10 ml Documented by: Sodium Chloride (Sodium Chloride Flush Syringe 10 Ml) 10 ml IV PRN PRN PRN Reason: LINE FLUSH Tizanidine HCl (Zanaflex) 4 mg PO DAILY [facility] Last Admin: 12/12/18 11:07 Dose: Not Given Documented by: Tramadol HCl (Ultram) 50 mg PO Q6HR PRN PRN Reason: Pain Last Admin: 12/10/18 21:42 Dose: 50 mg Documented by: Medication list reviewed and updated. Review of Systems - Review of Systems ROS unobtainable: due to endotracheal tube Exam - Constitutional Vital Signs: Temp Pulse Resp BP Pulse Ox 98.3 F 110 H 30 H 101/47 95 12/12/18 12:00 12/12/18 14:01 12/12/18 14:01 12/12/18 14:01 12/12/18 14:01 General appearance: other (sedated and intubated) - Neck Neck: supple - Respiratory Respiratory: bilateral: CTA (anteriorly over the vent) - Cardiovascular Rhythm: regular Heart Sounds: Present: S1 & S2 - Gastrointestinal General gastrointestinal: Present: soft, non-tender, non-distended, normal bowel sounds - Neurologic Neurological: other (sedated) - Labs CBC & Chem 7: 12/12/18 15:00 12/12/18 15:00 Lab Results: Laboratory Results - last 24 hr 12/12/18 12/12/18 12/12/18 05:46 06:30 06:30 WBC 10.3 RBC 2.32 L Hgb 7.5 L D Hct 25.6 L D MCV 111 H MCH 32 MCHC 29 L RDW 18.8 H Plt Count 44 L Add Manual Diff Complete Total Counted 100 Seg Neuts % (Manual) 78.0 H Band Neutrophils % 4.0 Lymphocytes % (Manual) 5.0 L Reactive Lymphs % (Man) 0 Monocytes % (Manual) 11.0 H Eosinophils % (Manual) 2.0 Basophils % (Manual) 0 Metamyelocytes % 0 Myelocytes % 0 Promyelocytes % 0 Blast Cells % 0 Nucleated RBC % Not Reportable Seg Neutrophils # Man 8.0 H Band Neutrophils # 0.4 Lymphocytes # (Manual) 0.5 L Abs React Lymphs (Man) 0.0 Monocytes # (Manual) 1.1 H Eosinophils # (Manual) 0.2 Basophils # (Manual) 0.0 Metamyelocytes # 0.0 Myelocytes # 0.0 Promyelocytes # 0.0 Blast Cells # 0.0 WBC Morphology Not Reportable Hypersegmented Neuts Not Reportable Hyposegmented Neuts Not Reportable Hypogranular Neuts Not Reportable Smudge Cells Not Reportable Toxic Granulation Not Reportable Toxic Vacuolation Not Reportable Dohle Bodies Not Reportable Pelger-Huet Anomaly Not Reportable Gurpreet Rods Not Reportable Platelet Estimate Consistent w auto Clumped Platelets Not Reportable Plt Clumps, EDTA Not Reportable Large Platelets Few Giant Platelets Not Reportable Platelet Satelliting Not Reportable Plt Morphology Comment Not Reportable RBC Morphology Not Reportable Dimorphic RBCs Not Reportable Polychromasia Not Reportable Hypochromasia 2+ Poikilocytosis 1+ Anisocytosis 1+ Microcytosis Not Reportable Macrocytosis 1+ Spherocytes Not Reportable Pappenheimer Bodies Not Reportable Sickle Cells Not Reportable Target Cells Not Reportable Tear Drop Cells Not Reportable Ovalocytes Not Reportable Helmet Cells Not Reportable [place] Bodies Not Reportable [place] Rings Not Reportable [place] Cells Few Bite Cells Not Reportable Crenated Cell Not Reportable Elliptocytes Not Reportable Acanthocytes (Spur) Not Reportable Rouleaux Not Reportable Hemoglobin C Crystals Not Reportable Schistocytes Not Reportable Malaria parasites Not Reportable [place] Bodies Not Reportable Hem Pathologist Commnt No POC ABG pH POC ABG pCO2 POC ABG pO2 POC ABG HCO3 POC ABG Total CO2 POC ABG O2 Sat POC ABG Base Excess FiO2 Sodium 143 D Potassium 2.7 L* D Chloride 114.3 H Carbon Dioxide 9 L* D Anion Gap 22 BUN 20 Creatinine 4.6 H D Estimated GFR 16 BUN/Creatinine Ratio 4 Glucose 221 H POC Glucose 180 H Lactic Acid Calcium 4.4 L* D Magnesium 1.20 L Total Bilirubin 0.50 Direct Bilirubin 0.4 H Indirect Bilirubin 0.1 AST 94 H ALT 38 Alkaline Phosphatase 51 Total Creatine Kinase 340 H CK-MB (CK-2) 1.3 CK-MB (CK-2) Rel Index 0.3 Troponin T 0.186 H* Total Protein 3.7 L D Albumin 1.7 L Albumin/Globulin Ratio 0.9 Triglycerides 61 Cholesterol 10 L LDL Cholesterol Direct 4 L HDL Cholesterol < 3 L Cholesterol/HDL Ratio 3.00 12/12/18 12/12/18 12/12/18 06:36 06:45 07:00 WBC RBC Hgb Hct MCV MCH MCHC RDW Plt Count Add Manual Diff Total Counted Seg Neuts % (Manual) Band Neutrophils % Lymphocytes % (Manual) Reactive Lymphs % (Man) Monocytes % (Manual) Eosinophils % (Manual) Basophils % (Manual) Metamyelocytes % Myelocytes % Promyelocytes % Blast Cells % Nucleated RBC % Seg Neutrophils # Man Band Neutrophils # Lymphocytes # (Manual) Abs React Lymphs (Man) Monocytes # (Manual) Eosinophils # (Manual) Basophils # (Manual) Metamyelocytes # Myelocytes # Promyelocytes # Blast Cells # WBC Morphology Hypersegmented Neuts Hyposegmented Neuts Hypogranular Neuts Smudge Cells Toxic Granulation Toxic Vacuolation Dohle Bodies Pelger-Huet Anomaly Gurpreet Rods Platelet Estimate Clumped Platelets Plt Clumps, EDTA Large Platelets Giant Platelets Platelet Satelliting Plt Morphology Comment RBC Morphology Dimorphic RBCs Polychromasia Hypochromasia Poikilocytosis Anisocytosis Microcytosis Macrocytosis Spherocytes Pappenheimer Bodies Sickle Cells Target Cells Tear Drop Cells Ovalocytes Helmet Cells [place] Bodies [place] Rings Benedict Cells Bite Cells Crenated Cell Elliptocytes Acanthocytes (Spur) Rouleaux Hemoglobin C Crystals Schistocytes Malaria parasites [place] Bodies Hem Pathologist Commnt POC ABG pH 7.099 L POC ABG pCO2 31.4 L POC ABG pO2 98 POC ABG HCO3 9.7 POC ABG Total CO2 11 POC ABG O2 Sat 95 POC ABG Base Excess -20 FiO2 100 Sodium Potassium Chloride Carbon Dioxide Anion Gap BUN Creatinine Estimated GFR BUN/Creatinine Ratio Glucose POC Glucose 176 H Lactic Acid 4.70 H* Calcium Magnesium Total Bilirubin Direct Bilirubin Indirect Bilirubin AST ALT Alkaline Phosphatase Total Creatine Kinase CK-MB (CK-2) CK-MB (CK-2) Rel Index Troponin T Total Protein Albumin Albumin/Globulin Ratio Triglycerides Cholesterol LDL Cholesterol Direct HDL Cholesterol Cholesterol/HDL Ratio 12/12/18 12/12/18 12/12/18 07:45 08:00 11:00 WBC RBC Hgb Hct MCV MCH MCHC RDW Plt Count Add Manual Diff Total Counted Seg Neuts % (Manual) Band Neutrophils % Lymphocytes % (Manual) Reactive Lymphs % (Man) Monocytes % (Manual) Eosinophils % (Manual) Basophils % (Manual) Metamyelocytes % Myelocytes % Promyelocytes % Blast Cells % Nucleated RBC % Seg Neutrophils # Man Band Neutrophils # Lymphocytes # (Manual) Abs React Lymphs (Man) Monocytes # (Manual) Eosinophils # (Manual) Basophils # (Manual) Metamyelocytes # Myelocytes # Promyelocytes # Blast Cells # WBC Morphology Hypersegmented Neuts Hyposegmented Neuts Hypogranular Neuts Smudge Cells Toxic Granulation Toxic Vacuolation Dohle Bodies Pelger-Huet Anomaly Gurpreet Rods Platelet Estimate Clumped Platelets Plt Clumps, EDTA Large Platelets Giant Platelets Platelet Satelliting Plt Morphology Comment RBC Morphology Dimorphic RBCs Polychromasia Hypochromasia Poikilocytosis Anisocytosis Microcytosis Macrocytosis Spherocytes Pappenheimer Bodies Sickle Cells Target Cells Tear Drop Cells Ovalocytes Helmet Cells [place] Bodies [place] Rings [place] Cells Bite Cells Crenated Cell Elliptocytes Acanthocytes (Spur) Rouleaux Hemoglobin C Crystals Schistocytes Malaria parasites [place] Bodies Hem Pathologist Commnt POC ABG pH POC ABG pCO2 POC ABG pO2 POC ABG HCO3 POC ABG Total CO2 POC ABG O2 Sat POC ABG Base Excess FiO2 Sodium 145 Potassium 6.2 H* D Chloride 91.4 L Carbon Dioxide 15 L Anion Gap 45 BUN 34 H Creatinine 8.7 H D Estimated GFR 8 BUN/Creatinine Ratio 4 Glucose 84 POC Glucose 151 H Lactic Acid 21.90 H* Calcium 9.9 D Magnesium Total Bilirubin Direct Bilirubin Indirect Bilirubin AST ALT Alkaline Phosphatase Total Creatine Kinase CK-MB (CK-2) CK-MB (CK-2) Rel Index Troponin T Total Protein Albumin Albumin/Globulin Ratio Triglycerides Cholesterol LDL Cholesterol Direct HDL Cholesterol Cholesterol/HDL Ratio 12/12/18 12/12/18 11:00 11:59 WBC RBC Hgb Hct MCV MCH MCHC RDW Plt Count Add Manual Diff Total Counted Seg Neuts % (Manual) Band Neutrophils % Lymphocytes % (Manual) Reactive Lymphs % (Man) Monocytes % (Manual) Eosinophils % (Manual) Basophils % (Manual) Metamyelocytes % Myelocytes % Promyelocytes % Blast Cells % Nucleated RBC % Seg Neutrophils # Man Band Neutrophils # Lymphocytes # (Manual) Abs React Lymphs (Man) Monocytes # (Manual) Eosinophils # (Manual) Basophils # (Manual) Metamyelocytes # Myelocytes # Promyelocytes # Blast Cells # WBC Morphology Hypersegmented Neuts Hyposegmented Neuts Hypogranular Neuts Smudge Cells Toxic Granulation Toxic Vacuolation Dohle Bodies Pelger-Huet Anomaly Gurpreet Rods Platelet Estimate Clumped Platelets Plt Clumps, EDTA Large Platelets Giant Platelets Platelet Satelliting Plt Morphology Comment RBC Morphology Dimorphic RBCs Polychromasia Hypochromasia Poikilocytosis Anisocytosis Microcytosis Macrocytosis Spherocytes Pappenheimer Bodies Sickle Cells Target Cells Tear Drop Cells Ovalocytes Helmet Cells [place] Bodies [place] Rings Benedict Cells Bite Cells Crenated Cell Elliptocytes Acanthocytes (Spur) Rouleaux Hemoglobin C Crystals Schistocytes Malaria parasites [place] Bodies Hem Pathologist Commnt POC ABG pH 7.076 L POC ABG pCO2 33.6 L POC ABG pO2 163 H POC ABG HCO3 9.9 POC ABG Total CO2 11 POC ABG O2 Sat 99 POC ABG Base Excess -20 FiO2 100 Sodium 141 Potassium 5.4 H Chloride 90.4 L Carbon Dioxide 9 L* Anion Gap 48 BUN 34 H Creatinine 8.6 H Estimated GFR 8 BUN/Creatinine Ratio 4 Glucose 96 POC Glucose Lactic Acid Calcium 8.8 Magnesium Total Bilirubin Direct Bilirubin Indirect Bilirubin AST ALT Alkaline Phosphatase Total Creatine Kinase CK-MB (CK-2) CK-MB (CK-2) Rel Index Troponin T Total Protein Albumin Albumin/Globulin Ratio Triglycerides Cholesterol LDL Cholesterol Direct HDL Cholesterol Cholesterol/HDL Ratio Assessment and Plan This is a 53 yo male with pmh of ESRD admitted on 12/07/2018 for volume overload and found to have bacteremia/sepsis with unclear source. s/p cardiac arrest this morning and intubated. Now on 4 pressors (dopamine, vasopressin, epi, and levophed). OG tube with bloody output. GI consulted for GI bleed. Also s/p vas cath placement on 12/11/2018 for malfunctioning right AVF. # GI bleed - OG tube with bloody output s/p cardiac arrest and intubated this morning. - hgb 11 on 12/11/2018 and 7 this morning and repeat at 12 today. - Also noted to have thrombocytopenia with Platelets down to 30s. Possibly from DIC and sepsis. - No BM today per nursing. - possible PUD vs diffuse mucosal bleeding with severe thrombocytopenia. Rec: - continue with PPI IV drip and NPO - patient uncurrently too unstable with hemodynamics, requiring more pressors for endoscopic procedure. - monitor CBC serially and transfuse with Hgb goal of >7, Platelet >50K, - check INR - will follow. - discussed with family (niece) on the phone today. - critical ill.
[2018-12-12 15:15] LABS: Mean Corpuscular HGB Conc 30 % (32-34); Mean Corpuscular Volume 105 fl (84-94); Red Blood Count 3.83 M/mm3 (3.65-5.03); Red Cell Distribution Width 18.4 % (13.2-15.2)
[2018-12-12 15:21] LABS: Platelet Count 36 K/mm3 (140-440)
--- NOTE | 2018-12-12 15:29 | Progress Note ---
Assessment and Plan End Stage Renal Disease: Hyperkalemia: Septic Shock due to Bacteremia: s/p PEA arrest: Hypoxic respiratory failure on Vent: Metabolic acidosis: History of Essential Hypertension: Diabetes Mellitus: -s/p HD yesterday -Coded this am, Currently intubated on Vent. On Pressers -Albumin 25% 100 mls q6h X 6 doses ordered for hypotension -Pt is s/p right femoral vascath placement yesterday as AVF was not working -Hyperkalemia better -Currently on 4 pressors and BP still low, would be unable to tolerated dialysis. On D5W with 150 meq of Sodium bicarb at 150 mls/hr. Will do dialysis only if BP improves to tolerate it otherwise would be too risk -Intubated on Vent -On Abx for Sepsis -GI on board for anemia -Renally dose all meds Plan d/w Family and bedside testing lead. Critical Care time: 36 minutes Subjective Date of service: 12/12/18 Principal diagnosis: ESRD Interval history: Coded this morning. Currently intubated in ICU. On Pressors. Critically Sick. Objective - Exam Narrative Exam: GE:Intubated HEENT:Normocephalic Chest:Coarse BS BL CVS:RRR Abd:Soft/BS+ Ext: trace BLE edema Neuro:Sedated - Vital Signs Vital signs: Vital Signs - 12hr 12/12/18 12/12/18 12/12/18 04:27 06:04 06:10 Temperature 101.8 F H Pulse Rate 108 H 96 H 99 H Respiratory 22 18 20 Rate Blood Pressure 96/25 O2 Sat by Pulse 93 Oximetry 12/12/18 12/12/18 12/12/18 06:21 06:24 06:31 Temperature Pulse Rate 58 L 41 L 41 L Respiratory 18 18 Rate Blood Pressure O2 Sat by Pulse 73 L Oximetry 12/12/18 12/12/18 12/12/18 06:41 06:51 07:01 Temperature Pulse Rate 82 61 96 H Respiratory 18 16 18 Rate Blood Pressure O2 Sat by Pulse 62 L Oximetry 12/12/18 12/12/18 12/12/18 07:11 07:21 07:31 Temperature Pulse Rate 72 53 L 137 H Respiratory 18 18 18 Rate Blood Pressure O2 Sat by Pulse 84 Oximetry 12/12/18 12/12/18 12/12/18 07:41 07:51 08:00 Temperature Pulse Rate 108 H 109 H 121 H Respiratory 18 30 H Rate Blood Pressure 56/17 114/61 91/25 O2 Sat by Pulse 49 L 73 L 98 Oximetry 12/12/18 12/12/18 12/12/18 08:10 08:21 08:29 Temperature 96.9 F L Pulse Rate 120 H 117 H Respiratory 30 H 30 H Rate Blood Pressure 96/32 96/45 O2 Sat by Pulse 99 100 Oximetry 12/12/18 12/12/18 12/12/18 08:31 08:40 08:50 Temperature Pulse Rate 118 H 118 H 117 H Respiratory 30 H 30 H 30 H Rate Blood Pressure 87/43 114/35 124/25 O2 Sat by Pulse 100 99 97 Oximetry 12/12/18 12/12/18 12/12/18 09:01 09:11 09:21 Temperature Pulse Rate 118 H 117 H 118 H Respiratory 30 H 30 H 30 H Rate Blood Pressure 114/23 116/20 104/23 O2 Sat by Pulse 95 95 100 Oximetry 12/12/18 12/12/18 12/12/18 09:22 09:31 09:40 Temperature Pulse Rate 118 H 118 H 117 H Respiratory 30 H 30 H Rate Blood Pressure 90/24 89/21 90/25 O2 Sat by Pulse 98 99 100 Oximetry 12/12/18 12/12/18 12/12/18 09:50 10:00 10:11 Temperature Pulse Rate 118 H 119 H 118 H Respiratory 30 H 30 H 30 H Rate Blood Pressure 98/22 91/28 94/25 O2 Sat by Pulse 99 100 Oximetry 12/12/18 12/12/18 12/12/18 10:21 10:30 10:40 Temperature Pulse Rate 118 H 118 H 118 H Respiratory 30 H 30 H 30 H Rate Blood Pressure 105/24 116/26 109/23 O2 Sat by Pulse Oximetry 12/12/18 12/12/18 12/12/18 10:50 11:01 11:05 Temperature Pulse Rate 117 H 117 H 116 H Respiratory 30 H 30 H Rate Blood Pressure 96/21 108/18 95/21 O2 Sat by Pulse 79 L Oximetry 12/12/18 12/12/18 12/12/18 11:11 11:21 11:31 Temperature Pulse Rate 117 H 117 H 116 H Respiratory 30 H 30 H 30 H Rate Blood Pressure 116/19 98/21 103/21 O2 Sat by Pulse 96 98 97 Oximetry 12/12/18 12/12/18 12/12/18 11:40 11:50 12:00 Temperature 98.3 F Pulse Rate 116 H 115 H Respiratory 30 H 23 Rate Blood Pressure 101/25 96/45 O2 Sat by Pulse 97 96 Oximetry 12/12/18 12/12/18 12/12/18 12:01 12:10 12:20 Temperature Pulse Rate 114 H 114 H 114 H Respiratory 30 H 30 H 30 H Rate Blood Pressure 99/68 108/47 96/52 O2 Sat by Pulse 99 98 98 Oximetry 12/12/18 12/12/18 12/12/18 12:27 12:30 12:40 Temperature Pulse Rate 113 H 115 H 114 H Respiratory 30 H 30 H Rate Blood Pressure 107/54 113/59 118/49 O2 Sat by Pulse 97 97 98 Oximetry 12/12/18 12/12/18 12/12/18 12:50 13:01 13:11 Temperature Pulse Rate 114 H 113 H 112 H Respiratory 30 H 30 H 30 H Rate Blood Pressure 120/49 115/22 106/50 O2 Sat by Pulse 97 97 97 Oximetry 12/12/18 12/12/18 12/12/18 13:20 13:30 13:40 Temperature Pulse Rate 112 H 112 H 112 H Respiratory 30 H 30 H 30 H Rate Blood Pressure 106/41 120/48 117/30 O2 Sat by Pulse 97 97 97 Oximetry 12/12/18 12/12/18 13:51 14:01 Temperature Pulse Rate 111 H 110 H Respiratory 30 H 30 H Rate Blood Pressure 150/21 101/47 O2 Sat by Pulse 95 95 Oximetry - Lab 12/12/18 15:00 12/12/18 11:00 Most recent lab results Calcium 8.8 mg/dL (8.4-10.2) 12/12/18 11:00 Magnesium 1.20 mg/dL (1.7-2.3) L 12/12/18 06:30 Medications & Allergies - Medications Allergies/Adverse Reactions: Allergies No Known Allergies Allergy (Verified 12/07/18 22:19) Home Medications: Home Medications Medication Instructions Recorded Confirmed Last Taken Type tiZANidine [Zanaflex 4mg TAB] 4 mg PO DAILY 12/08/18 12/09/18 Unknown History traMADol [Ultram] 50 mg PO Q6HR PRN 12/08/18 12/09/18 Unknown History Cinacalcet HCl [Sensipar] 30 mg PO DAILY 12/09/18 12/09/18 Unknown History Cyclobenzaprine [Flexeril 10 MG 10 mg PO BID 12/09/18 12/09/18 Unknown History TAB] Gabapentin [Neurontin] 300 mg PO Q8HR 12/09/18 12/09/18 2 Days Ago History ~12/07/18 Hydrocodone-Acetamn 7.5-325/15 7.5 mg PO Q6H PRN 12/09/18 12/09/18 Unknown History Losartan Potassium 100 mg PO DAILY 12/09/18 12/09/18 Unknown History Active Medications: Generic Name Dose Route Start Last Admin Trade Name Freq PRN Reason Stop Dose Admin Acetaminophen 650 mg 12/08/18 01:14 12/11/18 05:02 Tylenol PO 650 mg Q4H PRN Administration Pain MILD(1-3)/Fever >100.5/GARCIA Acetaminophen/Hydrocodone Bitart 7.5 mg 12/09/18 11:51 12/10/18 09:42 Barton PO 7.5 mg Q6H PRN Administration Pain, Moderate (4-6) Albumin Human 25 gm 12/12/18 16:00 Alburx 25% (Albumin) IV 12/13/18 22:01 Q6H LOBO Cinacalcet 30 mg 12/10/18 10:00 12/12/18 11:07 Sensipar PO Not Given DAILY LOBO Cyclobenzaprine HCl 10 mg 12/09/18 22:00 12/12/18 11:07 Flexeril PO Not Given BID LOBO Gabapentin 300 mg 12/09/18 14:00 12/12/18 14:20 Neurontin PO Not Given Q8HR LOBO Hydralazine HCl 5 mg 12/07/18 23:21 12/08/18 18:47 Apresoline IV 5 mg Q6H PRN Administration Hypertension Sodium Chloride 100 mls @ 999 mls/hr 12/07/18 23:20 Nacl 0.9% IV FARNAZ PRN Hypotension Ceftriaxone Sodium 2 gm in 100 mls @ 200 mls/hr 12/10/18 12:00 12/12/18 10:36 Rocephin/Ns 2 Gm/100 Ml IV 100 mls/hr Q24HR LOBO Administration Protocol Levofloxacin/Dextrose 500 mg in 100 mls @ 100 mls/hr 12/12/18 10:00 12/12/18 09:41 Levaquin 500mg/100ml IV 100 mls/hr Q48HR LOBO Administration Sodium Bicarbonate 150 meq/ 1,150 mls @ 75 mls/hr 12/12/18 08:00 12/12/18 15:19 Dextrose IV 75 mls/hr DIRECT LOBO Administration Vasopressin 20 unit/ Sodium 101 mls @ 9.09 mls/hr 12/12/18 09:00 12/12/18 08:18 Chloride IV 0.03 units/min TITR LOBO 9.09 mls/hr Administration Protocol 0.03 UNITS/MIN Norepinephrine 4 mg in 250 mls @ 7.5 mls/hr 12/12/18 09:00 12/12/18 14:19 Levophed Drip 4 Mg/Ns 250 Ml IV 30 mcg/min TITR LOBO 112.5 mls/hr Administration Protocol 2 MCG/MIN Dopamine HCl/Dextrose 800 mg in 250 mls @ 4.778 mls/hr 12/12/18 07:00 12/12/18 11:01 Intropin Drip 800 Mg/D5w 250 Ml IV 20 mcg/kg/min TITR LOBO 47.775 mls/hr Administration Protocol 2 MCG/KG/MIN Epinephrine 8 mg/ Sodium 250 mls @ 3.75 mls/hr 12/12/18 11:00 12/12/18 14:41 Chloride IV 10 mcg/min TITR LOBO 18.75 mls/hr Titration Protocol 2 MCG/MIN Sodium Chloride 100 mls @ 999 mls/hr 12/12/18 10:59 Nacl 0.9% IV FARNAZ PRN Hypotension Pantoprazole Sodium 80 mg/ 100 mls @ 10 mls/hr 12/12/18 14:00 12/12/18 13:41 Sodium Chloride IV 8 mg/hr DIRECT LOBO 10 mls/hr Administration 8 MG/HR Lactated Ringer's 500 mls @ 999 mls/hr 12/12/18 15:00 12/12/18 14:56 Lactated Ringers IV 12/12/18 15:30 999 mls/hr BOLUS ONE Administration Losartan Potassium 50 mg 12/10/18 10:00 12/12/18 11:05 Cozaar PO Not Given QDAY LOBO Ondansetron HCl 4 mg 12/08/18 01:14 Zofran IV Q8H PRN Nausea And Vomiting Sodium Chloride 10 ml 12/08/18 10:00 12/12/18 11:07 Sodium Chloride Flush Syringe 10 Ml IV 10 ml BID LOBO Administration Sodium Chloride 10 ml 12/08/18 01:14 Sodium Chloride Flush Syringe 10 Ml IV PRN PRN LINE FLUSH Tizanidine HCl 4 mg 12/10/18 10:00 12/12/18 11:07 Zanaflex PO Not Given DAILY LOBO Tramadol HCl 50 mg 12/09/18 11:25 12/10/18 21:42 Ultram PO 50 mg Q6HR PRN Administration Pain
[2018-12-12 15:38] LABS: Calcium 8.2 mg/dL (8.4-10.2)
--- NOTE | 2018-12-12 15:39 | Progress Note ---
Assessment and Plan Cultures: 12/08 BCX - Group C Strep /12/11 BCX- no growth today 12/12 Sputum poor specimen A/P: 53 yo M PMHx HTN, DM2, ESRD on HD admitted with SOB and edema, found to be bacteremic. 1. Sepsis now s/p cardiac arrest on 12/12/2018: currently on 3 pressors. Initial sepsis secondary to Group C strep bacteremia - unclear source of bacteremia, possible from lungs via obscured pneumonia. On ceftriaxone. 12/11 repeat blood culture no growth today. TTE no valvular vegetation. EF 45-50. 2. Acute encephalopahty: ? hypoxic brain injury 3. Acute respiratory insufficiency: now intubated 4. Metabolic acidosis: elevated lactate from cardiac arrest 5. ESRD on HD: Status post placement of right common femoral vein vas cath on 12/11. He has an AVG which is thrombosed, will need to be surgically revised Recs: - stop ceftriaxone and levaquin - start cefepime, vancomycin and flagyl renally adjusted for now until aspiration pneumonia and bacteremia is ruled out - repeat blood cultures and CXR - neurology consult and CT head when stable ? hypoxic brain injury Grim prognosis. Darcie Dumont MD [facility] ([facility]) Office [phone] Subjective Date of service: 12/12/18 Principal diagnosis: ESRD Interval history: Patient now intubated unresponsive s/p cardiac arrest and CPR this morning. Temp 101.8. Family at bedside. Objective - Exam Narrative Exam: Constitutional: unresponsive, intubated. Head, Ears, Nose: Normocephalic, atraumatic. External ears, nose normal Eyes: Conjunctivae/corneas clear. No icterus. No ptosis. pupils dilated bilateral non reactive Neck: Supple, no meningeal signs Oral: +ETT, OGT Cardiovascular: tachycardic Respiratory: Good air entry, clear to auscultation bilaterally GI: Soft, non-tender; bowel sounds normal. No peritoneal signs Musculoskeletal:zeny leg edema, right AVF nonfunctioning, +thrill Skin: No rash or abscess Hem/Lymphatic: No palpable cervical or supraclavicular nodes. No lymphangitis Psych: no agitation Neurological: unresponsive Right fem Vas cath - Constitutional Vitals: Vital Signs Temp Pulse Resp BP Pulse Ox 98.3 F 110 H 30 H 101/47 95 12/12/18 12:00 12/12/18 14:01 12/12/18 14:01 12/12/18 14:01 12/12/18 14:01 Temperature -Last 24 Hours Temperature 98.3 F Temperature 96.9 F Temperature 101.8 F Temperature 100.0 F Temperature 99.2 F Temperature 99.2 F Temperature 98.4 F Temperature 98.5 F - Labs CBC & Chem 7: 12/12/18 15:00 12/12/18 15:00 Labs: Abnormal lab results 12/12/18 12/12/18 12/12/18 Range/Units 05:46 06:30 06:30 WBC (4.5-11.0) K/mm3 RBC 2.32 L (3.65-5.03) M/mm3 Hgb 7.5 L D (11.8-15.2) gm/dl Hct 25.6 L D (35.5-45.6) % MCV 111 H (84-94) fl MCHC 29 L (32-34) % RDW 18.8 H (13.2-15.2) % Plt Count 44 L (140-440) K/mm3 Seg Neuts % (Manual) 78.0 H (40.0-70.0) % Lymphocytes % (Manual) 5.0 L (13.4-35.0) % Monocytes % (Manual) 11.0 H (0.0-7.3) % Seg Neutrophils # Man 8.0 H (1.8-7.7) K/mm3 Lymphocytes # (Manual) 0.5 L (1.2-5.4) K/mm3 Monocytes # (Manual) 1.1 H (0.0-0.8) K/mm3 POC ABG pH (7.35-7.45) POC ABG pCO2 (35-45) POC ABG pO2 (80-105) Potassium 2.7 L* D (3.6-5.0) mmol/L Chloride 114.3 H (98-107) mmol/L Carbon Dioxide 9 L* D (22-30) mmol/L BUN (9-20) mg/dL Creatinine 4.6 H D (0.8-1.5) mg/dL Glucose 221 H (75-100) mg/dL POC Glucose 180 H (70-105) Lactic Acid (0.7-2.0) mmol/L Calcium 4.4 L* D (8.4-10.2) mg/dL Magnesium 1.20 L (1.7-2.3) mg/dL Direct Bilirubin 0.4 H (0-0.2) mg/dL AST 94 H (5-40) units/L Total Creatine Kinase 340 H (55-170) units/L Troponin T 0.186 H* (0.00-0.029) ng/mL Total Protein 3.7 L D (6.3-8.2) g/dL Albumin 1.7 L (3.9-5) g/dL Cholesterol 10 L (50-199) mg/dL LDL Cholesterol Direct 4 L (50-130) mg/dL HDL Cholesterol < 3 L (40-59) mg/dL 12/12/18 12/12/18 12/12/18 Range/Units 06:36 06:45 07:00 WBC (4.5-11.0) K/mm3 RBC (3.65-5.03) M/mm3 Hgb (11.8-15.2) gm/dl Hct (35.5-45.6) % MCV (84-94) fl MCHC (32-34) % RDW (13.2-15.2) % Plt Count (140-440) K/mm3 Seg Neuts % (Manual) (40.0-70.0) % Lymphocytes % (Manual) (13.4-35.0) % Monocytes % (Manual) (0.0-7.3) % Seg Neutrophils # Man (1.8-7.7) K/mm3 Lymphocytes # (Manual) (1.2-5.4) K/mm3 Monocytes # (Manual) (0.0-0.8) K/mm3 POC ABG pH 7.099 L (7.35-7.45) POC ABG pCO2 31.4 L (35-45) POC ABG pO2 (80-105) Potassium (3.6-5.0) mmol/L Chloride (98-107) mmol/L Carbon Dioxide (22-30) mmol/L BUN (9-20) mg/dL Creatinine (0.8-1.5) mg/dL Glucose (75-100) mg/dL POC Glucose 176 H (70-105) Lactic Acid 4.70 H* (0.7-2.0) mmol/L Calcium (8.4-10.2) mg/dL Magnesium (1.7-2.3) mg/dL Direct Bilirubin (0-0.2) mg/dL AST (5-40) units/L Total Creatine Kinase (55-170) units/L Troponin T (0.00-0.029) ng/mL Total Protein (6.3-8.2) g/dL Albumin (3.9-5) g/dL Cholesterol (50-199) mg/dL LDL Cholesterol Direct (50-130) mg/dL HDL Cholesterol (40-59) mg/dL 12/12/18 12/12/18 12/12/18 Range/Units 07:45 08:00 11:00 WBC (4.5-11.0) K/mm3 RBC (3.65-5.03) M/mm3 Hgb (11.8-15.2) gm/dl Hct (35.5-45.6) % MCV (84-94) fl MCHC (32-34) % RDW (13.2-15.2) % Plt Count (140-440) K/mm3 Seg Neuts % (Manual) (40.0-70.0) % Lymphocytes % (Manual) (13.4-35.0) % Monocytes % (Manual) (0.0-7.3) % Seg Neutrophils # Man (1.8-7.7) K/mm3 Lymphocytes # (Manual) (1.2-5.4) K/mm3 Monocytes # (Manual) (0.0-0.8) K/mm3 POC ABG pH (7.35-7.45) POC ABG pCO2 (35-45) POC ABG pO2 (80-105) Potassium 6.2 H* D (3.6-5.0) mmol/L Chloride 91.4 L (98-107) mmol/L Carbon Dioxide 15 L (22-30) mmol/L BUN 34 H (9-20) mg/dL Creatinine 8.7 H D (0.8-1.5) mg/dL Glucose (75-100) mg/dL POC Glucose 151 H (70-105) Lactic Acid 21.90 H* (0.7-2.0) mmol/L Calcium (8.4-10.2) mg/dL Magnesium (1.7-2.3) mg/dL Direct Bilirubin (0-0.2) mg/dL AST (5-40) units/L Total Creatine Kinase (55-170) units/L Troponin T (0.00-0.029) ng/mL Total Protein (6.3-8.2) g/dL Albumin (3.9-5) g/dL Cholesterol (50-199) mg/dL LDL Cholesterol Direct (50-130) mg/dL HDL Cholesterol (40-59) mg/dL 12/12/18 12/12/18 12/12/18 Range/Units 11:00 11:59 15:00 WBC (4.5-11.0) K/mm3 RBC (3.65-5.03) M/mm3 Hgb (11.8-15.2) gm/dl Hct (35.5-45.6) % MCV (84-94) fl MCHC (32-34) % RDW (13.2-15.2) % Plt Count (140-440) K/mm3 Seg Neuts % (Manual) (40.0-70.0) % Lymphocytes % (Manual) (13.4-35.0) % Monocytes % (Manual) (0.0-7.3) % Seg Neutrophils # Man (1.8-7.7) K/mm3 Lymphocytes # (Manual) (1.2-5.4) K/mm3 Monocytes # (Manual) (0.0-0.8) K/mm3 POC ABG pH 7.076 L (7.35-7.45) POC ABG pCO2 33.6 L (35-45) POC ABG pO2 163 H (80-105) Potassium 5.4 H 5.1 H (3.6-5.0) mmol/L Chloride 90.4 L 90.0 L (98-107) mmol/L Carbon Dioxide 9 L* 10 L (22-30) mmol/L BUN 34 H 34 H (9-20) mg/dL Creatinine 8.6 H 8.2 H (0.8-1.5) mg/dL Glucose (75-100) mg/dL POC Glucose (70-105) Lactic Acid (0.7-2.0) mmol/L Calcium 8.2 L (8.4-10.2) mg/dL Magnesium (1.7-2.3) mg/dL Direct Bilirubin (0-0.2) mg/dL AST (5-40) units/L Total Creatine Kinase (55-170) units/L Troponin T (0.00-0.029) ng/mL Total Protein (6.3-8.2) g/dL Albumin (3.9-5) g/dL Cholesterol (50-199) mg/dL LDL Cholesterol Direct (50-130) mg/dL HDL Cholesterol (40-59) mg/dL 12/12/18 Range/Units 15:00 WBC 23.5 H (4.5-11.0) K/mm3 RBC (3.65-5.03) M/mm3 Hgb (11.8-15.2) gm/dl Hct (35.5-45.6) % MCV 105 H (84-94) fl MCHC 30 L (32-34) % RDW 18.4 H (13.2-15.2) % Plt Count 36 L (140-440) K/mm3 Seg Neuts % (Manual) (40.0-70.0) % Lymphocytes % (Manual) (13.4-35.0) % Monocytes % (Manual) (0.0-7.3) % Seg Neutrophils # Man (1.8-7.7) K/mm3 Lymphocytes # (Manual) (1.2-5.4) K/mm3 Monocytes # (Manual) (0.0-0.8) K/mm3 POC ABG pH (7.35-7.45) POC ABG pCO2 (35-45) POC ABG pO2 (80-105) Potassium (3.6-5.0) mmol/L Chloride (98-107) mmol/L Carbon Dioxide (22-30) mmol/L BUN (9-20) mg/dL Creatinine (0.8-1.5) mg/dL Glucose (75-100) mg/dL POC Glucose (70-105) Lactic Acid (0.7-2.0) mmol/L Calcium (8.4-10.2) mg/dL Magnesium (1.7-2.3) mg/dL Direct Bilirubin (0-0.2) mg/dL AST (5-40) units/L Total Creatine Kinase (55-170) units/L Troponin T (0.00-0.029) ng/mL Total Protein (6.3-8.2) g/dL Albumin (3.9-5) g/dL Cholesterol (50-199) mg/dL LDL Cholesterol Direct (50-130) mg/dL HDL Cholesterol (40-59) mg/dL
[2018-12-12] MEDS: ALBURX 25% (ALBUMIN) IV SCH ×2 (15:48→22:48)
[2018-12-12] MEDS ORDERED: VANCOMYCIN/NS 1 GM/250 ML 1 GM/250 ML BAG IV SCH (16:00)
[2018-12-12] MEDS: NEO-SYNEPHRINE 100 MG in NACL 0.9% 90 ML IV SCH ×3 (16:15→23:54)
[2018-12-12] MEDS ORDERED: MAGNESIUM SULFATE 2GM/50ML 2 GM/50 ML BAG IV ONE (16:28)
[2018-12-12] MEDS: FLAGYL 500 MG/100 ML 500 MG/100 ML BAG IV SCH (16:33)
[2018-12-12] MEDS: KIONEX PR ONE ×2 (16:34→17:49)
[2018-12-12] MEDS ORDERED: KIONEX PR ONE (16:38)
[2018-12-12 16:47] LABS: Hematocrit 39.4 % (35.5-45.6); Hemoglobin 11.7 gm/dl (11.8-15.2)
[2018-12-12 16:53] LABS: Basophils % (Manual) 0 % (0.0-1.8); Myelocytes # (Manual) 0.5 K/mm3; Total Cells Counted 100
[2018-12-12 16:54] LABS: Anisocytosis 1+; Large Platelets Few; Macrocytosis 1+; Platelet Estimate Consistent w Auto
[2018-12-12 16:55] LABS: Helmet Cells Rare; Poikilocytosis 1+; Tear Drop Cells Rare
[2018-12-12 17:01] LABS: INR 5.66 (0.87-1.13)
[2018-12-12] MEDS ORDERED: VITAMIN K (ADULT ONLY) 10 MG in NACL 0.9% 50 ML IV ONE (18:00)
[2018-12-12] MEDS ORDERED: MAXIPIME/NS 1 GM/100 ML 1 GM/100 ML BAG IV SCH (18:00)
[2018-12-12] MEDS: D50W (25GM) Syringe IV PRN (23:29)
[2018-12-13] MEDS: D50W (25GM) Syringe IV PRN ×6 (01:03→15:18)
[2018-12-13] MEDS: Vasostrict 20 UNIT in NACL 0.9% 100 ML IV SCH ×2 (01:05→11:25)
[2018-12-13] MEDS ORDERED: NACL 0.9% 1000 ML 1,000 ML IV ONE (01:47)
[2018-12-13] MEDS: LEVOPHED DRIP 4 MG/NS 250 ML 4 MG/250 ML BAG IV SCH ×6 (04:16→15:31)
[2018-12-13] MEDS: NEO-SYNEPHRINE 100 MG in NACL 0.9% 90 ML IV SCH ×4 (04:18→16:19)
[2018-12-13] MEDS: INTROPIN DRIP 800 MG/D5W 250 ML 800 MG/250 ML BAG IV SCH ×3 (04:19→14:47)
[2018-12-13] MEDS: SODIUM BICARBONATE 150 MEQ in D5W 1,000 ML IV SCH ×2 (04:20→14:07)
[2018-12-13] MEDS: ALBURX 25% (ALBUMIN) IV SCH ×3 (05:32→15:31)
[2018-12-13] MEDS: NEURONTIN PO SCH ×3 (05:33→15:35)
[2018-12-13] MEDS: FLEXERIL PO SCH ×2 (05:33→11:05)
[2018-12-13] MEDS: FLAGYL 500 MG/100 ML 500 MG/100 ML BAG IV SCH ×3 (05:35→11:04)
[2018-12-13] MEDS: SODIUM CHLORIDE FLUSH SYRINGE 10 ML IV SCH ×2 (07:50→10:21)
[2018-12-13 08:53] LABS: Calcium 7.6 mg/dL (8.4-10.2)
[2018-12-13] MEDS: ADRENALIN 8 MG in NACL 0.9% 250ML 242 ML IV SCH (09:21)
[2018-12-13 09:49] LABS: Red Blood Count 2.89 M/mm3 (3.65-5.03)
[2018-12-13 09:50] LABS: Mean Corpuscular HGB Conc 28 % (32-34); Mean Corpuscular Volume 111 fl (84-94); Platelet Count 50 K/mm3 (140-440); Red Cell Distribution Width 19.9 % (13.2-15.2)
[2018-12-13 09:53] LABS: Band Neutrophils # (Manual) 1.1 K/mm3; Basophils % (Manual) 0 % (0.0-1.8); Eosinophils % (Manual) 0 % (0.0-4.3); Total Cells Counted 100
[2018-12-13 09:55] LABS: Large Platelets Few; Platelet Estimate Consistent w Auto
[2018-12-13] MEDS ORDERED: SODIUM BICARBONATE 150 MEQ in D5W 1,000 ML IV ONE (10:00)
[2018-12-13 10:03] LABS: INR 8.01 (0.87-1.13)
--- NOTE | 2018-12-13 10:35 | Consultation ---
History of Present Illness Consult date: 12/13/18 Requesting physician: GAVIN SANTANA Consult reason: cardiac arrest History of present illness: 53-year-old male with history of end-stage renal disease on hemodialysis diabetes hypertension cholesterol presented to the hospital for shortness of breath after missing dialysis found to have temperature and positive blood cultures. Has new vascular access as patient's AV graft is thrombosed. Patient had cardiac arrest with PE arrest and was resuscitated. Patient was transferred to the ICU. Patient was in metabolic acidosis. Patient can't aggressive again and is on 4 pressors with suspected GI bleed also. Patient's echocardiogram is 45to 50% articular limited but no obvious signs of regurgitation. Repeat echo post arrest shows same ejection fraction 45-50%. Patient is nonresponsive on vent Past History Past Medical History: diabetes, dialysis, ESRD, hypertension Past Surgical History: No surgical history Social history: no significant social history. denies: smoking, alcohol abuse Family history: diabetes Medications and Allergies Allergies Allergy/AdvReac Type Severity Reaction Status Date / Time No Known Allergies Allergy Verified 12/07/18 22:19 Home Medications Medication Instructions Recorded Confirmed Last Taken Type tiZANidine [Zanaflex 4mg TAB] 4 mg PO DAILY 12/08/18 12/09/18 Unknown History traMADol [Ultram] 50 mg PO Q6HR PRN 12/08/18 12/09/18 Unknown History Cinacalcet HCl [Sensipar] 30 mg PO DAILY 12/09/18 12/09/18 Unknown History Cyclobenzaprine [Flexeril 10 MG 10 mg PO BID 12/09/18 12/09/18 Unknown History TAB] Gabapentin [Neurontin] 300 mg PO Q8HR 12/09/18 12/09/18 2 Days Ago History ~12/07/18 Hydrocodone-Acetamn 7.5-325/15 7.5 mg PO Q6H PRN 12/09/18 12/09/18 Unknown History Losartan Potassium 100 mg PO DAILY 12/09/18 12/09/18 Unknown History Active Meds: Active Medications Acetaminophen (Tylenol) 650 mg PO Q4H PRN PRN Reason: Pain MILD(1-3)/Fever >100.5/GARCIA Last Admin: 12/11/18 05:02 Dose: 650 mg Documented by: Acetaminophen/Hydrocodone Bitart ([place]) 7.5 mg PO Q6H PRN PRN Reason: Pain, Moderate (4-6) Last Admin: 12/10/18 09:42 Dose: 7.5 mg Documented by: Albumin Human ([place] 25% (Albumin)) 25 gm IV Q6H LOBO Stop: 12/13/18 22:01 Last Admin: 12/13/18 10:20 Dose: 25 gm Documented by: Cinacalcet (Sensipar) 30 mg PO DAILY LOBO Last Admin: 12/12/18 11:07 Dose: Not Given Documented by: Cyclobenzaprine HCl (Flexeril) 10 mg PO BID LOBO Last Admin: 12/13/18 05:33 Dose: Not Given Documented by: Dextrose (D50w (25gm) Syringe) 50 ml IV PRN PRN PRN Reason: Hypoglycemia Last Admin: 12/13/18 08:03 Dose: 50 ml Documented by: Gabapentin (Neurontin) 300 mg PO Q8HR LOBO Last Admin: 12/13/18 06:25 Dose: Not Given Documented by: Hydralazine HCl (Apresoline) 5 mg IV Q6H PRN PRN Reason: Hypertension Last Admin: 12/08/18 18:47 Dose: 5 mg Documented by: Sodium Chloride (Nacl 0.9%) 100 mls @ 999 mls/hr IV FARNAZ PRN PRN Reason: Hypotension Sodium Bicarbonate 150 meq/ (Dextrose) 1,150 mls @ 200 mls/hr IV DIRECT LOBO Last Admin: 12/13/18 04:20 Dose: 75 mls/hr Documented by: Vasopressin 20 unit/ Sodium (Chloride) 101 mls @ 9.09 mls/hr IV TITR LOBO; Protocol Last Admin: 12/13/18 01:05 Dose: 0.03 units/min, 9.09 mls/hr Documented by: Norepinephrine (Levophed Drip 4 Mg/Ns 250 Ml) 4 mg in 250 mls @ 7.5 mls/hr IV TITR LOBO; Protocol Last Admin: 12/13/18 08:38 Dose: 30 mcg/min, 112.5 mls/hr Documented by: Dopamine HCl/Dextrose (Intropin Drip 800 Mg/D5w 250 Ml) 800 mg in 250 mls @ 4.778 mls/hr IV TITR LOBO; Protocol Last Admin: 12/13/18 09:21 Dose: 20 mcg/kg/min, 47.775 mls/hr Documented by: Epinephrine 8 mg/ Sodium (Chloride) 250 mls @ 3.75 mls/hr IV TITR LOBO; Protocol Last Admin: 12/13/18 09:21 Dose: 10 mcg/min, 18.75 mls/hr Documented by: Sodium Chloride (Nacl 0.9%) 100 mls @ 999 mls/hr IV FARNAZ PRN PRN Reason: Hypotension Pantoprazole Sodium 80 mg/ (Sodium Chloride) 100 mls @ 10 mls/hr IV DIRECT LOBO Last Admin: 12/12/18 23:30 Dose: 8 mg/hr, 10 mls/hr Documented by: Phenylephrine HCl 100 mg/ (Sodium Chloride) 100 mls @ 3 mls/hr IV TITR LOOB; Protocol Last Admin: 12/13/18 08:16 Dose: 350 mcg/min, 21 mls/hr Documented by: Cefepime HCl (Maxipime/Ns 1 Gm/100 Ml) 1 gm in 100 mls @ 200 mls/hr IV Q24H LOBO; Protocol Last Admin: 12/12/18 18:03 Dose: 200 mls/hr Documented by: Metronidazole (Flagyl 500 Mg/100 Ml) 500 mg in 100 mls @ 100 mls/hr IV Q8H LOBO; Protocol Last Admin: 12/13/18 05:35 Dose: 100 mls/hr Documented by: Sodium Bicarbonate 150 meq/ (Dextrose) 1,150 mls @ 999 mls/hr IV ONCE ONE Stop: 12/13/18 11:09 Last Admin: 12/13/18 10:20 Dose: 999 mls/hr Documented by: Losartan Potassium (Cozaar) 50 mg PO QDAY [facility] Last Admin: 12/12/18 11:05 Dose: Not Given Documented by: Ondansetron HCl (Zofran) 4 mg IV Q8H PRN PRN Reason: Nausea And Vomiting Sodium Bicarbonate (Sodium Bicarbonate 50meq Syringe) 50 meq IV ONCE NR Stop: 12/13/18 13:33 Sodium Bicarbonate (Sodium Bicarbonate 50meq Syringe) 50 meq IV ONCE NR Stop: 12/13/18 16:00 Sodium Chloride (Sodium Chloride Flush Syringe 10 Ml) 10 ml IV BID [facility] Last Admin: 12/13/18 10:21 Dose: 10 ml Documented by: Sodium Chloride (Sodium Chloride Flush Syringe 10 Ml) 10 ml IV PRN PRN PRN Reason: LINE FLUSH Tizanidine HCl (Zanaflex) 4 mg PO DAILY LOBO Last Admin: 12/12/18 11:07 Dose: Not Given Documented by: Tramadol HCl (Ultram) 50 mg PO Q6HR PRN PRN Reason: Pain Last Admin: 12/10/18 21:42 Dose: 50 mg Documented by: Review of Systems ROS unobtainable: due to endotracheal tube, due to mental status Physical Examination Vital Signs Temp Pulse Resp BP Pulse Ox 99.5 F 92 H 22 173/94 94 12/07/18 21:16 12/07/18 21:16 12/07/18 21:16 12/07/18 21:16 12/07/18 21:16 General appearance: other (nonresponsive on a vent) HEENT: Positive: Other (reactive) Neck: Positive: neck supple Cardiac: Positive: Reg Rate and Rhythm Lungs: Positive: Decreased Breath Sounds Neuro: Positive: Other (nonresponsive) Abdomen: Positive: Distended Male genitourinary: Positive: deferred Extremities: Present: normal Results 12/13/18 08:35 12/13/18 08:35 Coagulation 12/12/18 12/13/18 Range/Units 16:30 08:35 PT 50.5 H 67.6 H (12.2-14.9) Sec. INR 5.66 H* 8.01 H* (0.87-1.13) CBC 12/12/18 12/12/18 12/12/18 Range/Units 06:30 15:00 16:30 WBC 10.3 23.5 H (4.5-11.0) K/mm3 RBC 2.32 L 3.83 (3.65-5.03) M/mm3 Hgb 7.5 L D 12.0 D 11.7 L (11.8-15.2) gm/dl Hct 25.6 L D 40.0 D 39.4 (35.5-45.6) % Plt Count 44 L 36 L (140-440) K/mm3 12/13/18 Range/Units 08:35 WBC 27.9 H (4.5-11.0) K/mm3 RBC 2.89 L (3.65-5.03) M/mm3 Hgb 9.0 L (11.8-15.2) gm/dl Hct 32.0 L D (35.5-45.6) % Plt Count 50 L (140-440) K/mm3 Comprehensive Metabolic Panel 12/12/18 12/12/18 12/13/18 Range/Units 11:00 15:00 08:35 Sodium 141 143 139 (137-145) mmol/L Potassium 5.4 H 5.1 H 5.0 (3.6-5.0) mmol/L Chloride 90.4 L 90.0 L 84.7 L (98-107) mmol/L Carbon Dioxide 9 L* 10 L 8 L* (22-30) mmol/L BUN 34 H 34 H 32 H (9-20) mg/dL Creatinine 8.6 H 8.2 H 8.7 H (0.8-1.5) mg/dL Glucose 96 80 360 H (75-100) mg/dL Calcium 8.8 8.2 L 7.6 L (8.4-10.2) mg/dL - Imaging and Cardiology Echo: report reviewed (borderline normal LV function regurgitations) EKG interpretations - Telemetry EKG Rhythm: Sinus Rhythm (nonspecific STT is normal sinus rhythm) Assessment and Plan Status post cardiac arrest multiple times Shock suspected sepsis Upper GI bleed nstemi type 2 Acute respiratory failure on vent Possible anoxic encephalopathy rec poor prognosis continue current management for pressors for maintaining blood pressure unfortunately patient's low blood pressure inhibits dialysis
--- NOTE | 2018-12-13 10:44 | Gastroenterology Progress Note ---
Assessment and Plan This is a 53 yo male with pmh of ESRD admitted on 12/07/2018 for volume overload and found to have bacteremia/sepsis with unclear source. s/p cardiac arrest this morning and intubated. Now on 4 pressors (dopamine, vasopressin, epi, and levop hed). OG tube with bloody output. GI consulted for GI bleed. Also s/p vas cath placement on 12/11/2018 for malfunctioning right AVF. # GI bleed - OG tube with bloody output s/p cardiac arrest and intubated this morning. - hgb 11 on 12/11/2018, --> 12 --> 11 on 12/12/2018 and 9 on 12/13/2018. - Also noted to have thrombocytopenia with Platelets down to 50k. Possibly from DIC and sepsis. - No BM today per nursing. - possible PUD vs diffuse mucosal bleeding with severe thrombocytopenia and coagulopathy. INR at 8 despite FFP x 4 units. Rec: - continue with PPI IV drip and NPO - patient uncurrently too unstable with hemodynamics for endoscopic procedure. He is on 5 pressors currently. - monitor CBC serially and transfuse with Hgb goal of >7, Platelet >50K, and INR <1.5 - will follow. - discussed with family (brother) at bedside today. - critical ill and poor prognosis Subjective Date of service: 12/13/18 Principal diagnosis: ESRD Interval history: Patient remains on five pressors and on the vent, unresponsive. No BM per nursing. Objective - Constitutional Vitals: Temp Pulse Resp BP Pulse Ox 97.5 F L 91 H 30 H 108/15 92 12/13/18 07:59 12/13/18 08:50 12/13/18 07:41 12/13/18 08:50 12/13/18 08:50 - Neck Neck: supple - Respiratory Respiratory: bilateral: CTA (on the vent) - Cardiovascular Rhythm: regular - Gastrointestinal General gastrointestinal: Present: soft, non-tender, non-distended - Neurologic Neurological: other (unresponsive) - Labs CBC & Chem 7: 12/13/18 08:35 12/13/18 08:35 Labs: Laboratory Results - last 24 hr 12/12/18 12/12/18 12/12/18 06:30 11:00 11:00 WBC 10.3 RBC 2.32 L Hgb 7.5 L D Hct 25.6 L D MCV 111 H MCH 32 MCHC 29 L RDW 18.8 H Plt Count 44 L Add Manual Diff Complete Total Counted 100 Seg Neuts % (Manual) 78.0 H Band Neutrophils % 4.0 Lymphocytes % (Manual) 5.0 L Reactive Lymphs % (Man) 0 Monocytes % (Manual) 11.0 H Eosinophils % (Manual) 2.0 Basophils % (Manual) 0 Metamyelocytes % 0 Myelocytes % 0 Promyelocytes % 0 Blast Cells % 0 Nucleated RBC % Not Reportable Seg Neutrophils # Man 8.0 H Band Neutrophils # 0.4 Lymphocytes # (Manual) 0.5 L Abs React Lymphs (Man) 0.0 Monocytes # (Manual) 1.1 H Eosinophils # (Manual) 0.2 Basophils # (Manual) 0.0 Metamyelocytes # 0.0 Myelocytes # 0.0 Promyelocytes # 0.0 Blast Cells # 0.0 WBC Morphology Not Reportable Hypersegmented Neuts Not Reportable Hyposegmented Neuts Not Reportable Hypogranular Neuts Not Reportable Smudge Cells Not Reportable Toxic Granulation Not Reportable Toxic Vacuolation Not Reportable Dohle Bodies Not Reportable Pelger-Huet Anomaly Not Reportable Gurpreet Rods Not Reportable Platelet Estimate Consistent w auto Clumped Platelets Not Reportable Plt Clumps, EDTA Not Reportable Large Platelets Few Giant Platelets Not Reportable Platelet Satelliting Not Reportable Plt Morphology Comment Not Reportable RBC Morphology Not Reportable Dimorphic RBCs Not Reportable Polychromasia Not Reportable Hypochromasia 2+ Poikilocytosis 1+ Anisocytosis 1+ Microcytosis Not Reportable Macrocytosis 1+ Spherocytes Not Reportable Pappenheimer Bodies Not Reportable Sickle Cells Not Reportable Target Cells Not Reportable Tear Drop Cells Not Reportable Ovalocytes Not Reportable Helmet Cells Not Reportable [place] Bodies Not Reportable [place] Rings Not Reportable Benedict Cells Few Bite Cells Not Reportable Crenated Cell Not Reportable Elliptocytes Not Reportable Acanthocytes (Spur) Not Reportable Rouleaux Not Reportable Hemoglobin C Crystals Not Reportable Schistocytes Not Reportable Malaria parasites Not Reportable Pollo Bodies Not Reportable Hem Pathologist Commnt No PT INR POC ABG pH POC ABG pCO2 POC ABG pO2 POC ABG HCO3 POC ABG Total CO2 POC ABG O2 Sat POC ABG Base Excess FiO2 Sodium 141 Potassium 5.4 H Chloride 90.4 L Carbon Dioxide 9 L* Anion Gap 48 BUN 34 H Creatinine 8.6 H Estimated GFR 8 BUN/Creatinine Ratio 4 Glucose 96 POC Glucose Lactic Acid 21.90 H* Calcium 8.8 Total Creatine Kinase Blood Type 12/12/18 12/12/18 12/12/18 11:59 15:00 15:00 WBC 23.5 H RBC 3.83 Hgb 12.0 D Hct 40.0 D MCV 105 H MCH 31 MCHC 30 L RDW 18.4 H Plt Count 36 L Add Manual Diff Complete Total Counted 100 Seg Neuts % (Manual) 80.0 H Band Neutrophils % 0 Lymphocytes % (Manual) 12.0 L Reactive Lymphs % (Man) 0 Monocytes % (Manual) 5.0 Eosinophils % (Manual) 1.0 Basophils % (Manual) 0 Metamyelocytes % 0 Myelocytes % 2.0 Promyelocytes % 0 Blast Cells % 0 Nucleated RBC % Not Reportable Seg Neutrophils # Man 18.8 H Band Neutrophils # 0.0 Lymphocytes # (Manual) 2.8 Abs React Lymphs (Man) 0.0 Monocytes # (Manual) 1.2 H Eosinophils # (Manual) 0.2 Basophils # (Manual) 0.0 Metamyelocytes # 0.0 Myelocytes # 0.5 Promyelocytes # 0.0 Blast Cells # 0.0 WBC Morphology Not Reportable Hypersegmented Neuts Not Reportable Hyposegmented Neuts Not Reportable Hypogranular Neuts Not Reportable Smudge Cells Not Reportable Toxic Granulation Not Reportable Toxic Vacuolation Not Reportable Dohle Bodies Not Reportable Pelger-Huet Anomaly Not Reportable Gurpreet Rods Not Reportable Platelet Estimate Consistent w auto Clumped Platelets Not Reportable Plt Clumps, EDTA Not Reportable Large Platelets Few Giant Platelets Not Reportable Platelet Satelliting Not Reportable Plt Morphology Comment Not Reportable RBC Morphology Not Reportable Dimorphic RBCs Not Reportable Polychromasia Not Reportable Hypochromasia Not Reportable Poikilocytosis 1+ Anisocytosis 1+ Microcytosis Not Reportable Macrocytosis 1+ Spherocytes Not Reportable Pappenheimer Bodies Not Reportable Sickle Cells Not Reportable Target Cells Not Reportable Tear Drop Cells Rare Ovalocytes Not Reportable Helmet Cells Rare [place] Bodies Not Reportable [place] Rings Not Reportable Benedict Cells Not Reportable Bite Cells Not Reportable Crenated Cell Not Reportable Elliptocytes Not Reportable Acanthocytes (Spur) Not Reportable Rouleaux Not Reportable Hemoglobin C Crystals Not Reportable Schistocytes Not Reportable Malaria parasites Not Reportable Pollo Bodies Not Reportable Hem Pathologist Commnt No PT INR POC ABG pH 7.076 L POC ABG pCO2 33.6 L POC ABG pO2 163 H POC ABG HCO3 9.9 POC ABG Total CO2 11 POC ABG O2 Sat 99 POC ABG Base Excess -20 FiO2 100 Sodium 143 Potassium 5.1 H Chloride 90.0 L Carbon Dioxide 10 L Anion Gap 48 BUN 34 H Creatinine 8.2 H Estimated GFR 8 BUN/Creatinine Ratio 4 Glucose 80 POC Glucose Lactic Acid Calcium 8.2 L Total Creatine Kinase Blood Type 12/12/18 12/12/18 12/12/18 16:30 16:30 16:30 WBC RBC Hgb 11.7 L Hct 39.4 MCV MCH MCHC RDW Plt Count Add Manual Diff Total Counted Seg Neuts % (Manual) Band Neutrophils % Lymphocytes % (Manual) Reactive Lymphs % (Man) Monocytes % (Manual) Eosinophils % (Manual) Basophils % (Manual) Metamyelocytes % Myelocytes % Promyelocytes % Blast Cells % Nucleated RBC % Seg Neutrophils # Man Band Neutrophils # Lymphocytes # (Manual) Abs React Lymphs (Man) Monocytes # (Manual) Eosinophils # (Manual) Basophils # (Manual) Metamyelocytes # Myelocytes # Promyelocytes # Blast Cells # WBC Morphology Hypersegmented Neuts Hyposegmented Neuts Hypogranular Neuts Smudge Cells Toxic Granulation Toxic Vacuolation Dohle Bodies Pelger-Huet Anomaly Gurpreet Rods Platelet Estimate Clumped Platelets Plt Clumps, EDTA Large Platelets Giant Platelets Platelet Satelliting Plt Morphology Comment RBC Morphology Dimorphic RBCs Polychromasia Hypochromasia Poikilocytosis Anisocytosis Microcytosis Macrocytosis Spherocytes Pappenheimer Bodies Sickle Cells Target Cells Tear Drop Cells Ovalocytes Helmet Cells [place] Bodies [place] Rings Benedict Cells Bite Cells Crenated Cell Elliptocytes Acanthocytes (Spur) Rouleaux Hemoglobin C Crystals Schistocytes Malaria parasites Pollo Bodies Hem Pathologist Commnt PT 50.5 H INR 5.66 H* POC ABG pH POC ABG pCO2 POC ABG pO2 POC ABG HCO3 POC ABG Total CO2 POC ABG O2 Sat POC ABG Base Excess FiO2 Sodium Potassium Chloride Carbon Dioxide Anion Gap BUN Creatinine Estimated GFR BUN/Creatinine Ratio Glucose POC Glucose Lactic Acid 23.20 H* Calcium Total Creatine Kinase Blood Type 12/12/18 12/12/18 12/12/18 17:22 18:00 19:54 WBC RBC Hgb Hct MCV MCH MCHC RDW Plt Count Add Manual Diff Total Counted Seg Neuts % (Manual) Band Neutrophils % Lymphocytes % (Manual) Reactive Lymphs % (Man) Monocytes % (Manual) Eosinophils % (Manual) Basophils % (Manual) Metamyelocytes % Myelocytes % Promyelocytes % Blast Cells % Nucleated RBC % Seg Neutrophils # Man Band Neutrophils # Lymphocytes # (Manual) Abs React Lymphs (Man) Monocytes # (Manual) Eosinophils # (Manual) Basophils # (Manual) Metamyelocytes # Myelocytes # Promyelocytes # Blast Cells # WBC Morphology Hypersegmented Neuts Hyposegmented Neuts Hypogranular Neuts Smudge Cells Toxic Granulation Toxic Vacuolation Dohle Bodies Pelger-Huet Anomaly Gurpreet Rods Platelet Estimate Clumped Platelets Plt Clumps, EDTA Large Platelets Giant Platelets Platelet Satelliting Plt Morphology Comment RBC Morphology Dimorphic RBCs Polychromasia Hypochromasia Poikilocytosis Anisocytosis Microcytosis Macrocytosis Spherocytes Pappenheimer Bodies Sickle Cells Target Cells Tear Drop Cells Ovalocytes Helmet Cells May-[place] Bodies [place] Rings Benedict Cells Bite Cells Crenated Cell Elliptocytes Acanthocytes (Spur) Rouleaux Hemoglobin C Crystals Schistocytes Malaria parasites Pollo Bodies Hem Pathologist Commnt PT INR POC ABG pH 7.035 L POC ABG pCO2 30.2 L POC ABG pO2 98 POC ABG HCO3 8.1 POC ABG Total CO2 9 POC ABG O2 Sat 94 POC ABG Base Excess -23 FiO2 80 Sodium Potassium Chloride Carbon Dioxide Anion Gap BUN Creatinine Estimated GFR BUN/Creatinine Ratio Glucose POC Glucose Lactic Acid 26.30 H* Calcium Total Creatine Kinase Blood Type AB POSITIVE 12/12/18 12/12/18 12/13/18 23:21 23:22 00:20 WBC RBC Hgb Hct MCV MCH MCHC RDW Plt Count Add Manual Diff Total Counted Seg Neuts % (Manual) Band Neutrophils % Lymphocytes % (Manual) Reactive Lymphs % (Man) Monocytes % (Manual) Eosinophils % (Manual) Basophils % (Manual) Metamyelocytes % Myelocytes % Promyelocytes % Blast Cells % Nucleated RBC % Seg Neutrophils # Man Band Neutrophils # Lymphocytes # (Manual) Abs React Lymphs (Man) Monocytes # (Manual) Eosinophils # (Manual) Basophils # (Manual) Metamyelocytes # Myelocytes # Promyelocytes # Blast Cells # WBC Morphology Hypersegmented Neuts Hyposegmented Neuts Hypogranular Neuts Smudge Cells Toxic Granulation Toxic Vacuolation Dohle Bodies Pelger-Huet Anomaly Gurpreet Rods Platelet Estimate Clumped Platelets Plt Clumps, EDTA Large Platelets Giant Platelets Platelet Satelliting Plt Morphology Comment RBC Morphology Dimorphic RBCs Polychromasia Hypochromasia Poikilocytosis Anisocytosis Microcytosis Macrocytosis Spherocytes Pappenheimer Bodies Sickle Cells Target Cells Tear Drop Cells Ovalocytes Helmet Cells May-[place] Bodies [place] Rings [place] Cells Bite Cells Crenated Cell Elliptocytes Acanthocytes (Spur) Rouleaux Hemoglobin C Crystals Schistocytes Malaria parasites Pollo Bodies Hem Pathologist Commnt PT INR POC ABG pH POC ABG pCO2 POC ABG pO2 POC ABG HCO3 POC ABG Total CO2 POC ABG O2 Sat POC ABG Base Excess FiO2 Sodium Potassium Chloride Carbon Dioxide Anion Gap BUN Creatinine Estimated GFR BUN/Creatinine Ratio Glucose POC Glucose < 40 L Lactic Acid 27.60 H* Calcium Total Creatine Kinase 2435 H Blood Type 12/13/18 12/13/18 12/13/18 00:20 01:05 03:26 WBC RBC Hgb Hct MCV MCH MCHC RDW Plt Count Add Manual Diff Total Counted Seg Neuts % (Manual) Band Neutrophils % Lymphocytes % (Manual) Reactive Lymphs % (Man) Monocytes % (Manual) Eosinophils % (Manual) Basophils % (Manual) Metamyelocytes % Myelocytes % Promyelocytes % Blast Cells % Nucleated RBC % Seg Neutrophils # Man Band Neutrophils # Lymphocytes # (Manual) Abs React Lymphs (Man) Monocytes # (Manual) Eosinophils # (Manual) Basophils # (Manual) Metamyelocytes # Myelocytes # Promyelocytes # Blast Cells # WBC Morphology Hypersegmented Neuts Hyposegmented Neuts Hypogranular Neuts Smudge Cells Toxic Granulation Toxic Vacuolation Dohle Bodies Pelger-Huet Anomaly Gurpreet Rods Platelet Estimate Clumped Platelets Plt Clumps, EDTA Large Platelets Giant Platelets Platelet Satelliting Plt Morphology Comment RBC Morphology Dimorphic RBCs Polychromasia Hypochromasia Poikilocytosis Anisocytosis Microcytosis Macrocytosis Spherocytes Pappenheimer Bodies Sickle Cells Target Cells Tear Drop Cells Ovalocytes Helmet Cells May[place] Bodies [place] Rings [place] Cells Bite Cells Crenated Cell Elliptocytes Acanthocytes (Spur) Rouleaux Hemoglobin C Crystals Schistocytes Malaria parasites Pollo Bodies Hem Pathologist Commnt PT INR POC ABG pH POC ABG pCO2 POC ABG pO2 POC ABG HCO3 POC ABG Total CO2 POC ABG O2 Sat POC ABG Base Excess FiO2 Sodium Potassium Chloride Carbon Dioxide Anion Gap BUN Creatinine Estimated GFR BUN/Creatinine Ratio Glucose POC Glucose 63 L 57 L Lactic Acid 29.00 H* Calcium Total Creatine Kinase Blood Type 12/13/18 12/13/18 12/13/18 04:14 04:31 04:31 WBC RBC Hgb Hct MCV MCH MCHC RDW Plt Count Add Manual Diff Total Counted Seg Neuts % (Manual) Band Neutrophils % Lymphocytes % (Manual) Reactive Lymphs % (Man) Monocytes % (Manual) Eosinophils % (Manual) Basophils % (Manual) Metamyelocytes % Myelocytes % Promyelocytes % Blast Cells % Nucleated RBC % Seg Neutrophils # Man Band Neutrophils # Lymphocytes # (Manual) Abs React Lymphs (Man) Monocytes # (Manual) Eosinophils # (Manual) Basophils # (Manual) Metamyelocytes # Myelocytes # Promyelocytes # Blast Cells # WBC Morphology Hypersegmented Neuts Hyposegmented Neuts Hypogranular Neuts Smudge Cells Toxic Granulation Toxic Vacuolation Dohle Bodies Pelger-Huet Anomaly Gurpreet Rods Platelet Estimate Clumped Platelets Plt Clumps, EDTA Large Platelets Giant Platelets Platelet Satelliting Plt Morphology Comment RBC Morphology Dimorphic RBCs Polychromasia Hypochromasia Poikilocytosis Anisocytosis Microcytosis Macrocytosis Spherocytes Pappenheimer Bodies Sickle Cells Target Cells Tear Drop Cells Ovalocytes Helmet Cells [place] Bodies [place] Rings Benedict Cells Bite Cells Crenated Cell Elliptocytes Acanthocytes (Spur) Rouleaux Hemoglobin C Crystals Schistocytes Malaria parasites Pollo Bodies Hem Pathologist Commnt PT INR POC ABG pH 6.889 L 6.930 L POC ABG pCO2 47.2 H 42.4 POC ABG pO2 52 L POC ABG HCO3 9.0 8.9 POC ABG Total CO2 10 10 POC ABG O2 Sat 32 63 POC ABG Base Excess -24 -24 FiO2 100 100 Sodium Potassium Chloride Carbon Dioxide Anion Gap BUN Creatinine Estimated GFR BUN/Creatinine Ratio Glucose POC Glucose 89 Lactic Acid Calcium Total Creatine Kinase Blood Type 12/13/18 12/13/18 12/13/18 04:55 05:52 06:38 WBC RBC Hgb Hct MCV MCH MCHC RDW Plt Count Add Manual Diff Total Counted Seg Neuts % (Manual) Band Neutrophils % Lymphocytes % (Manual) Reactive Lymphs % (Man) Monocytes % (Manual) Eosinophils % (Manual) Basophils % (Manual) Metamyelocytes % Myelocytes % Promyelocytes % Blast Cells % Nucleated RBC % Seg Neutrophils # Man Band Neutrophils # Lymphocytes # (Manual) Abs React Lymphs (Man) Monocytes # (Manual) Eosinophils # (Manual) Basophils # (Manual) Metamyelocytes # Myelocytes # Promyelocytes # Blast Cells # WBC Morphology Hypersegmented Neuts Hyposegmented Neuts Hypogranular Neuts Smudge Cells Toxic Granulation Toxic Vacuolation Dohle Bodies Pelger-Huet Anomaly Gurpreet Rods Platelet Estimate Clumped Platelets Plt Clumps, EDTA Large Platelets Giant Platelets Platelet Satelliting Plt Morphology Comment RBC Morphology Dimorphic RBCs Polychromasia Hypochromasia Poikilocytosis Anisocytosis Microcytosis Macrocytosis Spherocytes Pappenheimer Bodies Sickle Cells Target Cells Tear Drop Cells Ovalocytes Helmet Cells May-[place] Bodies [place] Rings Benedict Cells Bite Cells Crenated Cell Elliptocytes Acanthocytes (Spur) Rouleaux Hemoglobin C Crystals Schistocytes Malaria parasites Pollo Bodies Hem Pathologist Commnt PT INR POC ABG pH POC ABG pCO2 POC ABG pO2 POC ABG HCO3 POC ABG Total CO2 POC ABG O2 Sat POC ABG Base Excess FiO2 Sodium Potassium Chloride Carbon Dioxide Anion Gap BUN Creatinine Estimated GFR BUN/Creatinine Ratio Glucose POC Glucose 41 L 50 L Lactic Acid 20.20 H* Calcium Total Creatine Kinase Blood Type 12/13/18 12/13/18 12/13/18 07:52 08:10 08:35 WBC 27.9 H RBC 2.89 L Hgb 9.0 L Hct 32.0 L D MCV 111 H MCH 31 MCHC 28 L RDW 19.9 H Plt Count 50 L Add Manual Diff Complete Total Counted 100 Seg Neuts % (Manual) 85.0 H Band Neutrophils % 4.0 Lymphocytes % (Manual) 8.0 L Reactive Lymphs % (Man) 0 Monocytes % (Manual) 2.0 Eosinophils % (Manual) 0 Basophils % (Manual) 0 Metamyelocytes % 1.0 Myelocytes % 0 Promyelocytes % 0 Blast Cells % 0 Nucleated RBC % Not Reportable Seg Neutrophils # Man 23.7 H Band Neutrophils # 1.1 Lymphocytes # (Manual) 2.2 Abs React Lymphs (Man) 0.0 Monocytes # (Manual) 0.6 Eosinophils # (Manual) 0.0 Basophils # (Manual) 0.0 Metamyelocytes # 0.3 Myelocytes # 0.0 Promyelocytes # 0.0 Blast Cells # 0.0 WBC Morphology Not Reportable Hypersegmented Neuts Not Reportable Hyposegmented Neuts Not Reportable Hypogranular Neuts Not Reportable Smudge Cells Not Reportable Toxic Granulation Not Reportable Toxic Vacuolation Not Reportable Dohle Bodies Not Reportable Pelger-Huet Anomaly Not Reportable Gurpreet Rods Not Reportable Platelet Estimate Consistent w auto Clumped Platelets Not Reportable Plt Clumps, EDTA Not Reportable Large Platelets Few Giant Platelets Not Reportable Platelet Satelliting Not Reportable Plt Morphology Comment Not Reportable RBC Morphology Not Reportable Dimorphic RBCs Not Reportable Polychromasia Not Reportable Hypochromasia Not Reportable Poikilocytosis Not Reportable Anisocytosis Not Reportable Microcytosis Not Reportable Macrocytosis Not Reportable Spherocytes Not Reportable Pappenheimer Bodies Not Reportable Sickle Cells Not Reportable Target Cells Not Reportable Tear Drop Cells Not Reportable Ovalocytes Not Reportable Helmet Cells Not Reportable [place] Bodies Not Reportable [place] Rings Not Reportable [place] Cells Not Reportable Bite Cells Not Reportable Crenated Cell Not Reportable Elliptocytes Few Acanthocytes (Spur) Few Rouleaux Not Reportable Hemoglobin C Crystals Not Reportable Schistocytes Not Reportable Malaria parasites Not Reportable [place] Bodies Not Reportable Hem Pathologist Commnt No PT INR POC ABG pH POC ABG pCO2 POC ABG pO2 POC ABG HCO3 POC ABG Total CO2 POC ABG O2 Sat POC ABG Base Excess FiO2 Sodium Potassium Chloride Carbon Dioxide Anion Gap BUN Creatinine Estimated GFR BUN/Creatinine Ratio Glucose POC Glucose 60 L Lactic Acid 28.20 H* Calcium Total Creatine Kinase Blood Type 12/13/18 12/13/18 08:35 08:35 WBC RBC Hgb Hct MCV MCH MCHC RDW Plt Count Add Manual Diff Total Counted Seg Neuts % (Manual) Band Neutrophils % Lymphocytes % (Manual) Reactive Lymphs % (Man) Monocytes % (Manual) Eosinophils % (Manual) Basophils % (Manual) Metamyelocytes % Myelocytes % Promyelocytes % Blast Cells % Nucleated RBC % Seg Neutrophils # Man Band Neutrophils # Lymphocytes # (Manual) Abs React Lymphs (Man) Monocytes # (Manual) Eosinophils # (Manual) Basophils # (Manual) Metamyelocytes # Myelocytes # Promyelocytes # Blast Cells # WBC Morphology Hypersegmented Neuts Hyposegmented Neuts Hypogranular Neuts Smudge Cells Toxic Granulation Toxic Vacuolation Dohle Bodies Pelger-Huet Anomaly Gurpreet Rods Platelet Estimate Clumped Platelets Plt Clumps, EDTA Large Platelets Giant Platelets Platelet Satelliting Plt Morphology Comment RBC Morphology Dimorphic RBCs Polychromasia Hypochromasia Poikilocytosis Anisocytosis Microcytosis Macrocytosis Spherocytes Pappenheimer Bodies Sickle Cells Target Cells Tear Drop Cells Ovalocytes Helmet Cells [place] Bodies [place] Rings [place] Cells Bite Cells Crenated Cell Elliptocytes Acanthocytes (Spur) Rouleaux Hemoglobin C Crystals Schistocytes Malaria parasites Pollo Bodies Hem Pathologist Commnt PT 67.6 H INR 8.01 H* POC ABG pH POC ABG pCO2 POC ABG pO2 POC ABG HCO3 POC ABG Total CO2 POC ABG O2 Sat POC ABG Base Excess FiO2 Sodium 139 Potassium 5.0 Chloride 84.7 L Carbon Dioxide 8 L* Anion Gap 51 BUN 32 H Creatinine 8.7 H Estimated GFR 8 BUN/Creatinine Ratio 4 Glucose 360 H POC Glucose Lactic Acid Calcium 7.6 L Total Creatine Kinase Blood Type
[2018-12-13] MEDS: COZAAR PO SCH (11:04)
[2018-12-13] MEDS: SENSIPAR PO SCH (11:05)
[2018-12-13] MEDS: ZANAFLEX PO SCH (11:05)
[2018-12-13] MEDS ORDERED: NACL 0.9% 1000 ML 1,000 ML ONE (11:19)
[2018-12-13] MEDS ORDERED: VITAMIN K (ADULT ONLY) 10 MG in NACL 0.9% 50 ML IV ONE (12:00)
[2018-12-13] MEDS ORDERED: NACL 0.9% 500 ML 500 ML IV ONE (12:00)
--- NOTE | 2018-12-13 12:03 | Progress Note ---
Assessment and Plan Assessment and plan: Severe Septic shock. Etiology secondary to group C strep bacteremia. ID following. Rocephin started. Obtain repeat blood cultures to document clearance. Obtain echo to rule out endocariditis. Lactic acid normal. Levaquin restarted. We'll also add vancomycin. Patient requiring 4 pressors currently. Metabolic acidosis/lactic acidosis. Lactic acid extremely elevated greater than 25. cont bicarb drip Coagulopathy. INR greater than 8. Etiology likely secondary to DIC from sepsis. s/p PEA arrest. Etiology unknown. Potentially secondary to above. Check echocardiogram and consult cardiology for further evaluation. Group C strep bacteremia. As above. ESRD. Malfunctioning Right AVF, Patient underwent unsuccessful thrombectomy of his graft. Patient will be able to undergo dialysis through a right common femoral vein Vascath. Vascular surgery following. Fluid restriction of 1 liter per day F/U CXR Hemodialysis per nephrology Hyperkalemia. Insulin/D50 and Kayexalate given HD per nephrology DM II Cont. SSRI and Accuchecks Disposition. I have discussed the grim prognosis with the family. The brother and sister have opted for DO NOT RESUSCITATE. The high probability of a clinically significant, sudden or life threatening deterioration of the [hemodynamic, respiratory and renal] system(s) required my full and direct attention, intervention and personal management. The aggregate critical care time was [35] minutes. This time is in addition to time spent performing reported procedures but includes the following: [x] Data Review and interpretation [x] Patient assessment and monitoring of vital signs [x] Documentation [x] Medication orders and management History Interval history: This is a 53 yo male with pmh of ESRD admitted on 12/07/2018 for volume overload and found to have bacteremia/sepsis with unclear source. s/p cardiac arrest the morning of 12/12/18 and subsequently intubated on mechanical ventilation. Patient reported to have PEA arrest and ACLS protocol initiated. The patient received 3 epi, 2 sodium bicarb and calcium given, pulse restored. The patient was transferred to the ICU. Patient appears to have severe septic shock requiring 4 pressors (dopamine, vasopressin, epi, and levophed). Discussion with the brother at the bedside with regards to poor prognosis. Patient is unresponsive with pupils mildly reactive. The patient is noted to have severe metabolic acidosis/lactic acidosis with a lactic acid level greater than 25. Patient also receiving bicarbonate drip with periodic IV bicarbonate pushes. Patient also noted to have further complications with coagulopathy (INR 8) likel y secondary to DIC from sepsis. Cardiology, gastroenterology, purchasing internship, nephrology all have been consulted. Hospitalist Physical - Constitutional Vitals: Temp Pulse Resp BP Pulse Ox 97.5 F L 90 30 H 81/15 90 12/13/18 07:59 12/13/18 11:30 12/13/18 11:30 12/13/18 11:30 12/13/18 11:30 General appearance: Present: other (nonresponsive on a vent) - EENT Eyes: Present: PERRL, EOM intact ENT: hearing intact, clear oral mucosa, dentition normal - Neck Neck: Present: supple, normal ROM - Respiratory Respiratory effort: normal Respiratory: bilateral: CTA - Cardiovascular Rhythm: regular Heart Sounds: Present: S1 & S2. Absent: gallop, rub - Extremities Extremities: no ischemia, No edema, Full ROM - Abdominal General gastrointestinal: soft, non-tender, non-distended, normal bowel sounds - Integumentary Integumentary: Present: clear, warm, dry - Neurologic Neurologic: CNII-XII intact, moves all extremities Results - Labs CBC & Chem 7: 12/13/18 08:35 12/13/18 08:35 Labs: Laboratory Last Values WBC 27.9 K/mm3 (4.5-11.0) H 12/13/18 08:35 RBC 2.89 M/mm3 (3.65-5.03) L 12/13/18 08:35 Hgb 9.0 gm/dl (11.8-15.2) L 12/13/18 08:35 Hct 32.0 % (35.5-45.6) L D 12/13/18 08:35 MCV 111 fl (84-94) H 12/13/18 08:35 MCH 31 pg (28-32) 12/13/18 08:35 MCHC 28 % (32-34) L 12/13/18 08:35 RDW 19.9 % (13.2-15.2) H 12/13/18 08:35 Plt Count 50 K/mm3 (140-440) L 12/13/18 08:35 Lymph % (Auto) 8.4 % (13.4-35.0) L 12/11/18 05:38 [place] % (Auto) 13.0 % (0.0-7.3) H 12/11/18 05:38 Eos % (Auto) 0.6 % (0.0-4.3) 12/11/18 05:38 Baso % (Auto) 0.4 % (0.0-1.8) 12/11/18 05:38 Lymph # 1.1 K/mm3 (1.2-5.4) L 12/11/18 05:38 [place] # 1.7 K/mm3 (0.0-0.8) H 12/11/18 05:38 Eos # 0.1 K/mm3 (0.0-0.4) 12/11/18 05:38 Baso # 0.1 K/mm3 (0.0-0.1) 12/11/18 05:38 Add Manual Diff Complete 12/13/18 08:35 Total Counted 100 12/13/18 08:35 Seg Neutrophils % 77.6 % (40.0-70.0) H 12/11/18 05:38 Seg Neuts % (Manual) 85.0 % (40.0-70.0) H 12/13/18 08:35 4.0 % 12/13/18 08:35 8.0 % (13.4-35.0) L 12/13/18 08:35 Reactive Lymphs % (Man) 0 % 12/13/18 08:35 2.0 % (0.0-7.3) 12/13/18 08:35 0 % (0.0-4.3) 12/13/18 08:35 0 % (0.0-1.8) 12/13/18 08:35 1.0 % 12/13/18 08:35 0 % 12/13/18 08:35 0 % 12/13/18 08:35 0 % 12/13/18 08:35 Nucleated RBC % Not Reportable 12/13/18 08:35 Seg Neutrophils # 10.0 K/mm3 (1.8-7.7) H 12/11/18 05:38 Seg Neutrophils # Man 23.7 K/mm3 (1.8-7.7) H 12/13/18 08:35 Band Neutrophils # 1.1 K/mm3 12/13/18 08:35 2.2 K/mm3 (1.2-5.4) 12/13/18 08:35 Abs React Lymphs (Man) 0.0 K/mm3 12/13/18 08:35 0.6 K/mm3 (0.0-0.8) 12/13/18 08:35 0.0 K/mm3 (0.0-0.4) 12/13/18 08:35 0.0 K/mm3 (0.0-0.1) 12/13/18 08:35 0.3 K/mm3 12/13/18 08:35 0.0 K/mm3 12/13/18 08:35 0.0 K/mm3 12/13/18 08:35 Blast Cells # 0.0 K/mm3 12/13/18 08:35 WBC Morphology Not Reportable 12/13/18 08:35 Hypersegmented Neuts Not Reportable 12/13/18 08:35 Hyposegmented Neuts Not Reportable 12/13/18 08:35 Hypogranular Neuts Not Reportable 12/13/18 08:35 Not Reportable 12/13/18 08:35 Not Reportable 12/13/18 08:35 Not Reportable 12/13/18 08:35 Not Reportable 12/13/18 08:35 Not Reportable 12/13/18 08:35 Not Reportable 12/13/18 08:35 Consistent w auto 12/13/18 08:35 Not Reportable 12/13/18 08:35 Plt Clumps, EDTA Not Reportable 12/13/18 08:35 Few 12/13/18 08:35 Not Reportable 12/13/18 08:35 Not Reportable 12/13/18 08:35 Plt Morphology Comment Not Reportable 12/13/18 08:35 RBC Morphology Not Reportable 12/13/18 08:35 Dimorphic RBCs Not Reportable 12/13/18 08:35 Not Reportable 12/13/18 08:35 Not Reportable 12/13/18 08:35 Not Reportable 12/13/18 08:35 Not Reportable 12/13/18 08:35 Not Reportable 12/13/18 08:35 Not Reportable 12/13/18 08:35 Not Reportable 12/13/18 08:35 Not Reportable 12/13/18 08:35 Not Reportable 12/13/18 08:35 Not Reportable 12/13/18 08:35 Not Reportable 12/13/18 08:35 Not Reportable 12/13/18 08:35 Not Reportable 12/13/18 08:35 Not Reportable 12/13/18 08:35 Not Reportable 12/13/18 08:35 Not Reportable 12/13/18 08:35 Not Reportable 12/13/18 08:35 Not Reportable 12/13/18 08:35 Few 12/13/18 08:35 Acanthocytes (Spur) Few 12/13/18 08:35 Rouleaux Not Reportable 12/13/18 08:35 Not Reportable 12/13/18 08:35 Not Reportable 12/13/18 08:35 Not Reportable 12/13/18 08:35 Not Reportable 12/13/18 08:35 Hem Pathologist Commnt No 12/13/18 08:35 PT 67.6 Sec. (12.2-14.9) H 12/13/18 08:35 INR 8.01 (0.87-1.13) H* 12/13/18 08:35 POC ABG pH 6.930 (7.35-7.45) L 12/13/18 04:31 POC ABG pCO2 42.4 (35-45) 12/13/18 04:31 POC ABG pO2 52 (80-105) L 12/13/18 04:31 POC ABG HCO3 8.9 (22-26 mml/L) 12/13/18 04:31 POC ABG Total CO2 10 (23-27mmol/L) 12/13/18 04:31 POC ABG O2 Sat 63 12/13/18 04:31 POC ABG Base Excess -24 ((-2) - (+3)mmol/L) 12/13/18 04:31 100 % 12/13/18 04:31 Sodium 139 mmol/L (137-145) 12/13/18 08:35 Potassium 5.0 mmol/L (3.6-5.0) 12/13/18 08:35 Chloride 84.7 mmol/L (98-107) L 12/13/18 08:35 Carbon Dioxide 8 mmol/L (22-30) L* 12/13/18 08:35 51 mmol/L 12/13/18 08:35 BUN 32 mg/dL (9-20) H 12/13/18 08:35 8.7 mg/dL (0.8-1.5) H 12/13/18 08:35 Estimated GFR 8 ml/min 12/13/18 08:35 4 % 12/13/18 08:35 Glucose 360 mg/dL (75-100) H 12/13/18 08:35 POC Glucose 60 (70-105) L 12/13/18 07:52 8.4 % (4-6) H 12/08/18 07:06 Lactic Acid 28.20 mmol/L (0.7-2.0) H* 12/13/18 08:10 Calcium 7.6 mg/dL (8.4-10.2) L 12/13/18 08:35 Magnesium 1.20 mg/dL (1.7-2.3) L 12/12/18 06:30 0.50 mg/dL (0.1-1.2) 12/12/18 06:30 0.4 mg/dL (0-0.2) H 12/12/18 06:30 0.1 mg/dL 12/12/18 06:30 AST 94 units/L (5-40) H 12/12/18 06:30 ALT 38 units/L (7-56) 12/12/18 06:30 51 units/L (35-129) 12/12/18 06:30 2435 units/L (55-170) H 12/13/18 00:20 CK-MB (CK-2) 1.3 ng/mL (0.0-4.0) 12/12/18 06:30 CK-MB (CK-2) Rel Index 0.3 (0-4) 12/12/18 06:30 0.186 ng/mL (0.00-0.029) H* 12/12/18 06:30 3.7 g/dL (6.3-8.2) L D 12/12/18 06:30 1.7 g/dL (3.9-5) L 12/12/18 06:30 0.9 % 12/12/18 06:30 Triglycerides 61 mg/dL (2-149) 12/12/18 06:30 Cholesterol 10 mg/dL (50-199) L 12/12/18 06:30 4 mg/dL (50-130) L 12/12/18 06:30 < 3 mg/dL (40-59) L 12/12/18 06:30 3.00 % 12/12/18 06:30 Hepatitis A IgM Ab Non-reactive (NonReactive) 12/07/18 00:20 Hep Bs Antigen Non-reactive (Negative) 12/07/18 00:20 Hep B Core IgM Ab Non-reactive (NonReactive) 12/07/18 00:20 Non-reactive (NonReactive) 12/07/18 00:20 Blood Type AB POSITIVE 12/12/18 18:00 Active Medications - Current Medications Current Medications: Generic Name Dose Route Start Last Admin Trade Name Freq PRN Reason Stop Dose Admin Acetaminophen 650 mg 12/08/18 01:14 12/11/18 05:02 Tylenol PO 650 mg Q4H PRN Administration Pain MILD(1-3)/Fever >100.5/GARCIA Acetaminophen/Hydrocodone Bitart 7.5 mg 12/09/18 11:51 12/10/18 09:42 Sylva PO 7.5 mg Q6H PRN Administration Pain, Moderate (4-6) Albumin Human 25 gm 12/12/18 16:00 12/13/18 10:20 Alburx 25% (Albumin) IV 12/13/18 22:01 25 gm Q6H LOBO Administration Cinacalcet 30 mg 12/10/18 10:00 12/13/18 11:05 Sensipar PO Not Given DAILY LOBO Cyclobenzaprine HCl 10 mg 12/09/18 22:00 12/13/18 11:05 Flexeril PO Not Given BID LOBO Dextrose 50 ml 12/12/18 23:17 12/13/18 08:03 D50w (25gm) Syringe IV 50 ml PRN PRN Administration Hypoglycemia Gabapentin 300 mg 12/09/18 14:00 12/13/18 06:25 Neurontin PO Not Given Q8HR LOBO Hydralazine HCl 5 mg 12/07/18 23:21 12/08/18 18:47 Apresoline IV 5 mg Q6H PRN Administration Hypertension Sodium Chloride 100 mls @ 999 mls/hr 12/07/18 23:20 Nacl 0.9% IV FARNAZ PRN Hypotension Sodium Bicarbonate 150 meq/ 1,150 mls @ 200 mls/hr 12/12/18 08:00 12/13/18 04:20 Dextrose IV 75 mls/hr DIRECT LOBO Administration Vasopressin 20 unit/ Sodium 101 mls @ 9.09 mls/hr 12/12/18 09:00 12/13/18 11:25 Chloride IV 0.03 units/min TITR LOBO 9.09 mls/hr Administration Protocol 0.03 UNITS/MIN Norepinephrine 4 mg in 250 mls @ 7.5 mls/hr 12/12/18 09:00 12/13/18 10:54 Levophed Drip 4 Mg/Ns 250 Ml IV 30 mcg/min TITR LOBO 112.5 mls/hr Administration Protocol 2 MCG/MIN Dopamine HCl/Dextrose 800 mg in 250 mls @ 4.778 mls/hr 12/12/18 07:00 12/13/18 09:21 Intropin Drip 800 Mg/D5w 250 Ml IV 20 mcg/kg/min TITR LOBO 47.775 mls/hr Administration Protocol 2 MCG/KG/MIN Epinephrine 8 mg/ Sodium 250 mls @ 3.75 mls/hr 12/12/18 11:00 12/13/18 09:21 Chloride IV 10 mcg/min TITR LOBO 18.75 mls/hr Administration Protocol 2 MCG/MIN Sodium Chloride 100 mls @ 999 mls/hr 12/12/18 10:59 Nacl 0.9% IV FARNAZ PRN Hypotension Pantoprazole Sodium 80 mg/ 100 mls @ 10 mls/hr 12/12/18 14:00 12/12/18 23:30 Sodium Chloride IV 8 mg/hr DIRECT LOBO 10 mls/hr Administration 8 MG/HR Phenylephrine HCl 100 mg/ 100 mls @ 3 mls/hr 12/12/18 15:45 12/13/18 08:16 Sodium Chloride IV 350 mcg/min TITR LOBO 21 mls/hr Administration Protocol 50 MCG/MIN Cefepime HCl 1 gm in 100 mls @ 200 mls/hr 12/12/18 18:00 12/12/18 18:03 Maxipime/Ns 1 Gm/100 Ml IV 200 mls/hr Q24H LOBO Administration Protocol Metronidazole 500 mg in 100 mls @ 100 mls/hr 12/12/18 17:00 12/13/18 11:04 Flagyl 500 Mg/100 Ml IV Not Given Q8H [facility] Protocol Phytonadione 10 mg/ Sodium 51 mls @ 100 mls/hr 12/13/18 12:00 Chloride IV 12/13/18 12:30 ONCE ONE Sodium Chloride 500 mls @ 0 mls/hr 12/13/18 12:00 Nacl 0.9% 500 Ml IV 12/13/18 12:01 ONCE ONE As Directed Losartan Potassium 50 mg 12/10/18 10:00 12/13/18 11:04 Cozaar PO Not Given QDAY LOBO Ondansetron HCl 4 mg 12/08/18 01:14 Zofran IV Q8H PRN Nausea And Vomiting Sodium Bicarbonate 50 meq 12/13/18 12:33 Sodium Bicarbonate 50meq Syringe IV 12/13/18 13:33 ONCE NR Sodium Bicarbonate 50 meq 12/13/18 15:00 Sodium Bicarbonate 50meq Syringe IV 12/13/18 16:00 ONCE NR Sodium Chloride 10 ml 12/08/18 10:00 12/13/18 10:21 Sodium Chloride Flush Syringe 10 Ml IV 10 ml BID LOBO Administration Sodium Chloride 10 ml 12/08/18 01:14 Sodium Chloride Flush Syringe 10 Ml IV PRN PRN LINE FLUSH Tizanidine HCl 4 mg 12/10/18 10:00 12/13/18 11:05 Zanaflex PO Not Given DAILY LOBO Tramadol HCl 50 mg 12/09/18 11:25 12/10/18 21:42 Ultram PO 50 mg Q6HR PRN Administration Pain Nutrition/Malnutrition Assess - Dietary Evaluation Nutrition/Malnutrition Findings: Nutrition Notes Start: 12/08/18 12:14 Freq: Status: Active Protocol: Document 12/10/18 16:14 RM (Rec: 12/10/18 16:19 [id number]) Nutrition Notes Initial or Follow up Reassessment Current Diagnosis CKD (stage V CKD),Diabetes, Hypertension Other Pertinent Diagnosis on HD Current Diet Renal w/Nepro Vanilla BID Labs/Tests Reviewed Pertinent Medications Reviewed Height 5 ft 10 in Weight 127.1 kg [place] Body Weight (kg) 75.45 BMI 40.1 Weight change and time frame Noted wt increase. Likely d/t fluid change. Subjective/Other Information Pt asleep at time of visit. Per pt tech pt is eating all of his meals and drinking the Nepro. Percent of energy/protein needs met: 100%/100% Burn Absent Trauma Absent #1 Nutrition Diagnosis Inadequate oral intake Diagnosis Progress(for reassessment Continues documentation) Is patient on ventilator? No Is Patient Ambulatory and/or Out of Bed Yes [facility] [ 2745.925 [id number]] Kcal/Kg value to use for calculation 18 Approximate Energy Requirements Using 2288 kcal/Kg Calculation Used for Recommendations Kcal/kg Additional Notes Protein needs are 103-120g (1. 2-1.4g/kg Adjusted wt 86kg) Fluis needs are 1000-1500ml Nutrition Intervention Change Diet Order: Continue Add Supplement/Snack (indicate name/kcal Nepro vanilla BID /protein ) Provides kCal: 950 Provides Protein (gm) 50 Goal #1 Continue to meet at least 75% of kcal and protein needs Anticipated Discharge Needs: Renal consistent CHO with ONS daily to BID Follow-Up By: 12/15/18 Additional Comments Follow PO and ONS intakes
--- NOTE | 2018-12-13 12:21 | Progress Note ---
Assessment and Plan -Severe sepsis with septic shock -s/p Cardiopulmonary arrest, PEA -Severe lactic acidosis and metabolic acidosis -Strep bacteremia -ESRD on HD -Malfunctioning of AV fistula -Thrombocytopenia -Morbid obesity -Acute metabolic encephalopathy Per discussions with the sister at the bedside, he is DNAR. She is waiting for her brother to get here. At that time she plans to withdraw care as long as her brother is in agreement. No further escalation of care -Volume resuscitation, with severe lactic acidosis and high negative base excess, he remains intravasculary depleted -VAP bundle addressed -Adjust minute ventilation for better gas exchange -Serial ABG, BMP -May need CVVHD if acidosis is not improving with volume -Bicarbonate infusion for pH <7.1 -Wean supplemental oxygen for O2 sats>90% -Accuchecks with glycemic control -Add epinephrine to vasopressor to keep MAP>65 -VAP bundle addressed -Aspiration precautions, keep HOB >40 -SCD for VTE prophylaxis for now -Intra-arterial line for invasive hemodynamic monitoring -Sepsis protocol -Stress ulcer prophylaxis -Initiate enteral feeding within the next 72 hours -Antibiotics per ID -Will need KENISHA if persistent bacteremia -With ROSC would have benefitted from target temperature therapy for preservation of neurologic function CONDITION: CRITICAL PROGNOSIS; GRAVE to POOR CODE STATUS: FULL Discussed care plan with RT and RN. Subjective Date of service: 12/13/18 Principal diagnosis: ESRD Interval history: Patient is seen today for: severe sepsis with septic shock; severe metabolic acidosis; s/p cardiopulmonary arrest-PEA; Seen and examined at bedside; 24hour events reviewed; nursing and respiratory care staff consulted; vitals, labs, medications, cahrt reveiwed. Sister at the bedside. Events overnight- persistent acidosis and hypotension, despite vasopressor and ionotropic support. Sister at the bedside with Dr. Cooley- decision on DNR/ withdrawal care this morning. Objective Vital Signs - 12hr 12/13/18 12/13/18 12/13/18 00:31 00:41 00:51 Temperature Pulse Rate 100 H 100 H 99 H Respiratory 30 H 30 H 30 H Rate Blood Pressure 72/11 93/18 91/15 O2 Sat by Pulse 91 89 92 Oximetry 12/13/18 12/13/18 12/13/18 01:01 01:11 01:21 Temperature Pulse Rate 102 H 105 H 101 H Respiratory 30 H 30 H 30 H Rate Blood Pressure 111/19 100/10 88/24 O2 Sat by Pulse 86 84 Oximetry 12/13/18 12/13/18 12/13/18 01:31 01:41 01:51 Temperature Pulse Rate 99 H 98 H 102 H Respiratory 30 H 30 H 30 H Rate Blood Pressure 108/15 115/28 O2 Sat by Pulse 94 Oximetry 12/13/18 12/13/18 12/13/18 02:01 02:11 02:21 Temperature Pulse Rate 99 H 98 H 97 H Respiratory 30 H 30 H 30 H Rate Blood Pressure 91/13 91/22 84/15 O2 Sat by Pulse 94 92 93 Oximetry 12/13/18 12/13/18 12/13/18 02:31 02:41 02:51 Temperature Pulse Rate 100 H 99 H 98 H Respiratory 30 H 30 H 30 H Rate Blood Pressure 81/15 80/15 O2 Sat by Pulse 92 93 92 Oximetry 12/13/18 12/13/18 12/13/18 03:01 03:11 03:21 Temperature Pulse Rate 99 H 97 H 97 H Respiratory 30 H 30 H 30 H Rate Blood Pressure 91/12 87/20 87/20 O2 Sat by Pulse 92 92 Oximetry 12/13/18 12/13/18 12/13/18 03:31 03:41 03:51 Temperature Pulse Rate 97 H 99 H 97 H Respiratory 30 H 30 H 30 H Rate Blood Pressure 70/18 84/14 69/12 O2 Sat by Pulse 92 93 Oximetry 12/13/18 12/13/18 12/13/18 04:00 04:11 04:21 Temperature 98.7 F Pulse Rate 97 H 93 H 95 H Respiratory 30 H 30 H 30 H Rate Blood Pressure 91/55 56/21 73/16 O2 Sat by Pulse 94 93 94 Oximetry 12/13/18 12/13/18 12/13/18 04:31 04:41 04:51 Temperature Pulse Rate 94 H 96 H 95 H Respiratory 30 H 30 H 30 H Rate Blood Pressure 58/22 82/14 90/23 O2 Sat by Pulse 94 94 89 Oximetry 12/13/18 12/13/18 12/13/18 05:01 05:11 05:21 Temperature Pulse Rate 95 H 95 H 95 H Respiratory 30 H 30 H 30 H Rate Blood Pressure 90/23 91/18 81/18 O2 Sat by Pulse 92 90 91 Oximetry 12/13/18 12/13/18 12/13/18 05:31 05:41 05:51 Temperature Pulse Rate 94 H 97 H 95 H Respiratory 30 H 30 H 30 H Rate Blood Pressure 81/18 75/24 88/31 O2 Sat by Pulse 84 92 77 L Oximetry 12/13/18 12/13/18 12/13/18 06:01 06:11 06:21 Temperature Pulse Rate 96 H 96 H 95 H Respiratory 30 H 30 H 30 H Rate Blood Pressure 108/19 108/19 108/19 O2 Sat by Pulse 76 L 92 92 Oximetry 12/13/18 12/13/18 12/13/18 06:31 06:41 06:51 Temperature Pulse Rate 95 H 97 H 96 H Respiratory 30 H 30 H 30 H Rate Blood Pressure 113/23 94/14 88/18 O2 Sat by Pulse 95 89 92 Oximetry 12/13/18 12/13/18 12/13/18 07:01 07:11 07:21 Temperature Pulse Rate 95 H 96 H 95 H Respiratory 30 H 30 H 30 H Rate Blood Pressure 94/17 93/18 94/26 O2 Sat by Pulse 93 93 75 L Oximetry 12/13/18 12/13/18 12/13/18 07:31 07:41 07:51 Temperature Pulse Rate 95 H 93 H 94 H Respiratory 30 H 30 H 30 H Rate Blood Pressure 82/17 122/20 76/19 O2 Sat by Pulse 85 87 93 Oximetry 12/13/18 12/13/18 12/13/18 07:59 08:01 08:11 Temperature 97.5 F L Pulse Rate 95 H 94 H Respiratory 30 H 30 H Rate Blood Pressure 93/19 90/15 O2 Sat by Pulse 81 L 81 L Oximetry 12/13/18 12/13/18 12/13/18 08:21 08:31 08:41 Temperature Pulse Rate 95 H 93 H 93 H Respiratory 30 H 30 H 30 H Rate Blood Pressure 71/18 95/20 82/11 O2 Sat by Pulse 89 92 88 Oximetry 12/13/18 12/13/18 12/13/18 08:50 08:51 09:01 Temperature Pulse Rate 91 H 93 H 92 H Respiratory 30 H 30 H Rate Blood Pressure 108/15 112/11 99/27 O2 Sat by Pulse 92 91 92 Oximetry 12/13/18 12/13/18 12/13/18 09:11 09:21 09:31 Temperature Pulse Rate 93 H 92 H 94 H Respiratory 30 H 30 H 30 H Rate Blood Pressure 105/18 90/14 89/13 O2 Sat by Pulse 91 89 89 Oximetry 12/13/18 12/13/18 12/13/18 09:44 09:50 10:00 Temperature Pulse Rate 92 H 93 H 91 H Respiratory 30 H 30 H 30 H Rate Blood Pressure 62/19 103/16 O2 Sat by Pulse 89 90 88 Oximetry 12/13/18 12/13/18 12/13/18 10:10 10:20 10:30 Temperature Pulse Rate 91 H 91 H 92 H Respiratory 30 H 30 H 30 H Rate Blood Pressure 103/16 70/21 70/21 O2 Sat by Pulse 87 94 91 Oximetry 12/13/18 12/13/18 12/13/18 10:40 10:50 11:00 Temperature Pulse Rate 91 H 91 H 91 H Respiratory 30 H 30 H 30 H Rate Blood Pressure 73/15 96/78 78/20 O2 Sat by Pulse 87 92 90 Oximetry 12/13/18 12/13/18 12/13/18 11:04 11:10 11:20 Temperature Pulse Rate 92 H 91 H 91 H Respiratory 30 H 30 H Rate Blood Pressure 70/21 83/24 81/15 O2 Sat by Pulse 88 90 Oximetry 12/13/18 11:30 Temperature Pulse Rate 90 Respiratory 30 H Rate Blood Pressure 81/15 O2 Sat by Pulse 90 Oximetry Constitutional: no acute distress, other (unresponsive, not on any seadtion, morbidly obese) Eyes: non-icteric, other (fixed dilated pupils, no pupillary reaction to light) ENT: oropharynx dry Neck: supple, no JVD, other (old trachesotomy scar) Effort: mildly labored Ascultation: Bilateral: diminished breath sounds Cardiovascular: regular rate and rhythm, other (S1,S2) Gastrointestinal: normoactive bowel sounds, soft, non-tender, non-distended Integumentary: other (Right femoral trialysis catheter) Extremities: no cyanosis, cool Neurologic: other (Unresponsive) Psychiatric: other (unable to assess due to mental status) CBC and BMP: 12/13/18 08:35 12/13/18 08:35 ABG, PT/INR, D-dimer: ABG POC ABG pH 6.930 (7.35-7.45) L 08/11/19 04:31 POC ABG pCO2 42.4 (35-45) 12/13/18 04:31 POC ABG pO2 52 (80-105) L 12/13/18 04:31 POC ABG HCO3 8.9 (22-26 mml/L) 12/13/18 04:31 POC ABG Total CO2 10 (23-27mmol/L) 12/13/18 04:31 POC ABG O2 Sat 63 12/13/18 04:31 PT/INR, D-dimer PT 67.6 Sec. (12.2-14.9) H 12/13/18 08:35 INR 8.01 (0.87-1.13) H* 12/13/18 08:35 Abnormal lab findings: Abnormal Labs 12/07/18 12/07/18 12/08/18 20:56 20:56 07:06 WBC RBC Hgb Hct MCV 96 H MCHC RDW 16.9 H Plt Count 111 L Lymph % (Auto) [place] % (Auto) Lymph # [place] # Seg Neutrophils % Seg Neuts % (Manual) Lymphocytes % (Manual) Monocytes % (Manual) Seg Neutrophils # Seg Neutrophils # Man Lymphocytes # (Manual) Monocytes # (Manual) PT INR POC ABG pH POC ABG pCO2 POC ABG pO2 Sodium 136 L Potassium 6.0 H Chloride 93.7 L Carbon Dioxide 20 L BUN 57 H Creatinine 11.8 H Glucose 164 H POC Glucose Hemoglobin A1c 8.4 H Lactic Acid Calcium Magnesium Direct Bilirubin AST Total Creatine Kinase Troponin T Total Protein 8.8 H Albumin Cholesterol LDL Cholesterol Direct HDL Cholesterol 12/08/18 12/08/18 12/09/18 07:06 07:06 05:24 WBC 19.5 H RBC Hgb 11.7 L Hct MCV 97 H MCHC RDW 17.0 H Plt Count 96 L Lymph % (Auto) [place] % (Auto) Lymph # [place] # Seg Neutrophils % Seg Neuts % (Manual) 93.0 H Lymphocytes % (Manual) 6.0 L Monocytes % (Manual) Seg Neutrophils # Seg Neutrophils # Man 18.1 H Lymphocytes # (Manual) Monocytes # (Manual) PT INR POC ABG pH POC ABG pCO2 POC ABG pO2 Sodium 135 L Potassium 5.6 H Chloride 93.8 L 91.0 L Carbon Dioxide BUN 41 H 32 H Creatinine 10.1 H 8.6 H Glucose 146 H 208 H POC Glucose Hemoglobin A1c Lactic Acid Calcium Magnesium Direct Bilirubin AST Total Creatine Kinase Troponin T Total Protein Albumin Cholesterol LDL Cholesterol Direct HDL Cholesterol 12/10/18 12/10/18 12/10/18 06:33 06:33 17:41 WBC 12.3 H RBC 3.59 L Hgb 11.3 L Hct 35.0 L MCV 98 H MCHC RDW 17.3 H Plt Count 73 L Lymph % (Auto) 4.6 L [place] % (Auto) 10.3 H Lymph # 0.6 L [place] # 1.3 H Seg Neutrophils % 84.9 H Seg Neuts % (Manual) Lymphocytes % (Manual) Monocytes % (Manual) Seg Neutrophils # 10.5 H Seg Neutrophils # Man Lymphocytes # (Manual) Monocytes # (Manual) PT INR POC ABG pH 7.344 L POC ABG pCO2 51.9 H POC ABG pO2 73 L Sodium 132 L Potassium Chloride 90.5 L Carbon Dioxide BUN 31 H Creatinine 8.3 H Glucose 282 H POC Glucose Hemoglobin A1c Lactic Acid Calcium Magnesium Direct Bilirubin AST Total Creatine Kinase Troponin T Total Protein Albumin Cholesterol LDL Cholesterol Direct HDL Cholesterol 12/11/18 12/11/18 12/12/18 05:38 05:38 05:46 WBC 12.8 H RBC 3.63 L Hgb 11.4 L Hct 35.4 L MCV 98 H MCHC RDW 17.2 H Plt Count 75 L Lymph % (Auto) 8.4 L [place] % (Auto) 13.0 H Lymph # 1.1 L [place] # 1.7 H Seg Neutrophils % 77.6 H Seg Neuts % (Manual) Lymphocytes % (Manual) Monocytes % (Manual) Seg Neutrophils # 10.0 H Seg Neutrophils # Man Lymphocytes # (Manual) Monocytes # (Manual) PT INR POC ABG pH POC ABG pCO2 POC ABG pO2 Sodium 129 L Potassium Chloride 86.5 L Carbon Dioxide BUN 47 H Creatinine 9.7 H Glucose 356 H POC Glucose 180 H Hemoglobin A1c Lactic Acid Calcium 8.2 L Magnesium Direct Bilirubin AST Total Creatine Kinase Troponin T Total Protein Albumin Cholesterol LDL Cholesterol Direct HDL Cholesterol 12/12/18 12/12/18 12/12/18 06:30 06:30 06:36 WBC RBC 2.32 L Hgb 7.5 L D Hct 25.6 L D MCV 111 H MCHC 29 L RDW 18.8 H Plt Count 44 L Lymph % (Auto) [place] % (Auto) Lymph # [place] # Seg Neutrophils % Seg Neuts % (Manual) 78.0 H Lymphocytes % (Manual) 5.0 L Monocytes % (Manual) 11.0 H Seg Neutrophils # Seg Neutrophils # Man 8.0 H Lymphocytes # (Manual) 0.5 L Monocytes # (Manual) 1.1 H PT INR POC ABG pH POC ABG pCO2 POC ABG pO2 Sodium Potassium 2.7 L* D Chloride 114.3 H Carbon Dioxide 9 L* D BUN Creatinine 4.6 H D Glucose 221 H POC Glucose 176 H Hemoglobin A1c Lactic Acid Calcium 4.4 L* D Magnesium 1.20 L Direct Bilirubin 0.4 H AST 94 H Total Creatine Kinase 340 H Troponin T 0.186 H* Total Protein 3.7 L D Albumin 1.7 L Cholesterol 10 L LDL Cholesterol Direct 4 L HDL Cholesterol < 3 L 12/12/18 12/12/18 12/12/18 06:45 07:00 07:45 WBC RBC Hgb Hct MCV MCHC RDW Plt Count Lymph % (Auto) [place] % (Auto) Lymph # [place] # Seg Neutrophils % Seg Neuts % (Manual) Lymphocytes % (Manual) Monocytes % (Manual) Seg Neutrophils # Seg Neutrophils # Man Lymphocytes # (Manual) Monocytes # (Manual) PT INR POC ABG pH 7.099 L POC ABG pCO2 31.4 L POC ABG pO2 Sodium Potassium Chloride Carbon Dioxide BUN Creatinine Glucose POC Glucose 151 H Hemoglobin A1c Lactic Acid 4.70 H* Calcium Magnesium Direct Bilirubin AST Total Creatine Kinase Troponin T Total Protein Albumin Cholesterol LDL Cholesterol Direct HDL Cholesterol 12/12/18 12/12/18 12/12/18 08:00 11:00 11:00 WBC RBC Hgb Hct MCV MCHC RDW Plt Count Lymph % (Auto) [place] % (Auto) Lymph # [place] # Seg Neutrophils % Seg Neuts % (Manual) Lymphocytes % (Manual) Monocytes % (Manual) Seg Neutrophils # Seg Neutrophils # Man Lymphocytes # (Manual) Monocytes # (Manual) PT INR POC ABG pH POC ABG pCO2 POC ABG pO2 Sodium Potassium 6.2 H* D 5.4 H Chloride 91.4 L 90.4 L Carbon Dioxide 15 L 9 L* BUN 34 H 34 H Creatinine 8.7 H D 8.6 H Glucose POC Glucose Hemoglobin A1c Lactic Acid 21.90 H* Calcium Magnesium Direct Bilirubin AST Total Creatine Kinase Troponin T Total Protein Albumin Cholesterol LDL Cholesterol Direct HDL Cholesterol 12/12/18 12/12/18 12/12/18 11:59 15:00 15:00 WBC 23.5 H RBC Hgb Hct MCV 105 H MCHC 30 L RDW 18.4 H Plt Count 36 L Lymph % (Auto) [place] % (Auto) Lymph # [place] # Seg Neutrophils % Seg Neuts % (Manual) 80.0 H Lymphocytes % (Manual) 12.0 L Monocytes % (Manual) Seg Neutrophils # Seg Neutrophils # Man 18.8 H Lymphocytes # (Manual) Monocytes # (Manual) 1.2 H PT INR POC ABG pH 7.076 L POC ABG pCO2 33.6 L POC ABG pO2 163 H Sodium Potassium 5.1 H Chloride 90.0 L Carbon Dioxide 10 L BUN 34 H Creatinine 8.2 H Glucose POC Glucose Hemoglobin A1c Lactic Acid Calcium 8.2 L Magnesium Direct Bilirubin AST Total Creatine Kinase Troponin T Total Protein Albumin Cholesterol LDL Cholesterol Direct HDL Cholesterol 12/12/18 12/12/18 12/12/18 16:30 16:30 16:30 WBC RBC Hgb 11.7 L Hct MCV MCHC RDW Plt Count Lymph % (Auto) [place] % (Auto) Lymph # [place] # Seg Neutrophils % Seg Neuts % (Manual) Lymphocytes % (Manual) Monocytes % (Manual) Seg Neutrophils # Seg Neutrophils # Man Lymphocytes # (Manual) Monocytes # (Manual) PT 50.5 H INR 5.66 H* POC ABG pH POC ABG pCO2 POC ABG pO2 Sodium Potassium Chloride Carbon Dioxide BUN Creatinine Glucose POC Glucose Hemoglobin A1c Lactic Acid 23.20 H* Calcium Magnesium Direct Bilirubin AST Total Creatine Kinase Troponin T Total Protein Albumin Cholesterol LDL Cholesterol Direct HDL Cholesterol 12/12/18 12/12/18 12/12/18 17:22 19:54 23:21 WBC RBC Hgb Hct MCV MCHC RDW Plt Count Lymph % (Auto) [place] % (Auto) Lymph # [place] # Seg Neutrophils % Seg Neuts % (Manual) Lymphocytes % (Manual) Monocytes % (Manual) Seg Neutrophils # Seg Neutrophils # Man Lymphocytes # (Manual) Monocytes # (Manual) PT INR POC ABG pH 7.035 L POC ABG pCO2 30.2 L POC ABG pO2 Sodium Potassium Chloride Carbon Dioxide BUN Creatinine Glucose POC Glucose Hemoglobin A1c Lactic Acid 26.30 H* 27.60 H* Calcium Magnesium Direct Bilirubin AST Total Creatine Kinase Troponin T Total Protein Albumin Cholesterol LDL Cholesterol Direct HDL Cholesterol 12/12/18 12/13/18 12/13/18 23:22 00:20 00:20 WBC RBC Hgb Hct MCV MCHC RDW Plt Count Lymph % (Auto) [place] % (Auto) Lymph # [place] # Seg Neutrophils % Seg Neuts % (Manual) Lymphocytes % (Manual) Monocytes % (Manual) Seg Neutrophils # Seg Neutrophils # Man Lymphocytes # (Manual) Monocytes # (Manual) PT INR POC ABG pH POC ABG pCO2 POC ABG pO2 Sodium Potassium Chloride Carbon Dioxide BUN Creatinine Glucose POC Glucose < 40 L Hemoglobin A1c Lactic Acid 29.00 H* Calcium Magnesium Direct Bilirubin AST Total Creatine Kinase 2435 H Troponin T Total Protein Albumin Cholesterol LDL Cholesterol Direct HDL Cholesterol 12/13/18 12/13/18 12/13/18 01:05 03:26 04:14 WBC RBC Hgb Hct MCV MCHC RDW Plt Count Lymph % (Auto) [place] % (Auto) Lymph # [place] # Seg Neutrophils % Seg Neuts % (Manual) Lymphocytes % (Manual) Monocytes % (Manual) Seg Neutrophils # Seg Neutrophils # Man Lymphocytes # (Manual) Monocytes # (Manual) PT INR POC ABG pH 6.889 L POC ABG pCO2 47.2 H POC ABG pO2 Sodium Potassium Chloride Carbon Dioxide BUN Creatinine Glucose POC Glucose 63 L 57 L Hemoglobin A1c Lactic Acid Calcium Magnesium Direct Bilirubin AST Total Creatine Kinase Troponin T Total Protein Albumin Cholesterol LDL Cholesterol Direct HDL Cholesterol 12/13/18 12/13/18 12/13/18 04:31 04:55 05:52 WBC RBC Hgb Hct MCV MCHC RDW Plt Count Lymph % (Auto) [place] % (Auto) Lymph # [place] # Seg Neutrophils % Seg Neuts % (Manual) Lymphocytes % (Manual) Monocytes % (Manual) Seg Neutrophils # Seg Neutrophils # Man Lymphocytes # (Manual) Monocytes # (Manual) PT INR POC ABG pH 6.930 L POC ABG pCO2 POC ABG pO2 52 L Sodium Potassium Chloride Carbon Dioxide BUN Creatinine Glucose POC Glucose 41 L Hemoglobin A1c Lactic Acid 20.20 H* Calcium Magnesium Direct Bilirubin AST Total Creatine Kinase Troponin T Total Protein Albumin Cholesterol LDL Cholesterol Direct HDL Cholesterol 12/13/18 12/13/18 12/13/18 06:38 07:52 08:10 WBC RBC Hgb Hct MCV MCHC RDW Plt Count Lymph % (Auto) [place] % (Auto) Lymph # [place] # Seg Neutrophils % Seg Neuts % (Manual) Lymphocytes % (Manual) Monocytes % (Manual) Seg Neutrophils # Seg Neutrophils # Man Lymphocytes # (Manual) Monocytes # (Manual) PT INR POC ABG pH POC ABG pCO2 POC ABG pO2 Sodium Potassium Chloride Carbon Dioxide BUN Creatinine Glucose POC Glucose 50 L 60 L Hemoglobin A1c Lactic Acid 28.20 H* Calcium Magnesium Direct Bilirubin AST Total Creatine Kinase Troponin T Total Protein Albumin Cholesterol LDL Cholesterol Direct HDL Cholesterol 12/13/18 12/13/18 12/13/18 08:35 08:35 08:35 WBC 27.9 H RBC 2.89 L Hgb 9.0 L Hct 32.0 L D MCV 111 H MCHC 28 L RDW 19.9 H Plt Count 50 L Lymph % (Auto) [place] % (Auto) Lymph # [place] # Seg Neutrophils % Seg Neuts % (Manual) 85.0 H Lymphocytes % (Manual) 8.0 L Monocytes % (Manual) Seg Neutrophils # Seg Neutrophils # Man 23.7 H Lymphocytes # (Manual) Monocytes # (Manual) PT 67.6 H INR 8.01 H* POC ABG pH POC ABG pCO2 POC ABG pO2 Sodium Potassium Chloride 84.7 L Carbon Dioxide 8 L* BUN 32 H Creatinine 8.7 H Glucose 360 H POC Glucose Hemoglobin A1c Lactic Acid Calcium 7.6 L Magnesium Direct Bilirubin AST Total Creatine Kinase Troponin T Total Protein Albumin Cholesterol LDL Cholesterol Direct HDL Cholesterol Chest x-ray: image reviewed
[2018-12-13] MEDS ORDERED: ATIVAN IV PRN (12:30)
[2018-12-13] MEDS ORDERED: MORPHINE IV PRN (12:30)
--- NOTE | 2018-12-13 14:57 | Progress Note ---
Assessment and Plan End Stage Renal Disease: Hyperkalemia: Septic Shock due to Bacteremia: s/p PEA arrest: Hypoxic respiratory failure on Vent: Metabolic acidosis: History of Essential Hypertension: Diabetes Mellitus: -s/p HD friday -Coded FridayDec 12, Currently intubated on Vent. On 5 Pressers -Albumin 25% 100 mls q6h X 6 doses ordered for hypotension -Pt is s/p right femoral vascath placement Dec 11 as AVF was not working -Pt's BP is low on 5 pressors. He is in multiorgan failure and in florid septic shock and likely in DIC and ARDS. He would be unable to tolerated dialysis of any kind right now including CRRT. Case discussed in detail with family who agree, they have made patient DNR and are considering comfort care. -On bicarb drip. lactic acid is 28. Unable to dialyze due to low BP despite 5 pressors. 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 Critical Care time: 35 minutes Subjective Date of service: 12/13/18 Principal diagnosis: ESRD Interval history: On 5 pressers. Intubated on Vent. Gravely ill. Objective - Exam Narrative Exam: GE:Intubated HEENT:Normocephalic Chest:Coarse BS BL CVS:RRR Abd:Soft/BS+ Ext: trace BLE edema Neuro:Sedated - Vital Signs Vital signs: Vital Signs - 12hr 12/13/18 12/13/18 12/13/18 03:01 03:11 03:21 Temperature Pulse Rate 99 H 97 H 97 H Respiratory 30 H 30 H 30 H Rate Blood Pressure 91/12 87/20 87/20 O2 Sat by Pulse 92 92 Oximetry 12/13/18 12/13/18 12/13/18 03:31 03:41 03:51 Temperature Pulse Rate 97 H 99 H 97 H Respiratory 30 H 30 H 30 H Rate Blood Pressure 70/18 84/14 69/12 O2 Sat by Pulse 92 93 Oximetry 12/13/18 12/13/18 12/13/18 04:00 04:11 04:21 Temperature 98.7 F Pulse Rate 97 H 93 H 95 H Respiratory 30 H 30 H 30 H Rate Blood Pressure 91/55 56/21 73/16 O2 Sat by Pulse 94 93 94 Oximetry 12/13/18 12/13/18 12/13/18 04:31 04:41 04:51 Temperature Pulse Rate 94 H 96 H 95 H Respiratory 30 H 30 H 30 H Rate Blood Pressure 58/22 82/14 90/23 O2 Sat by Pulse 94 94 89 Oximetry 12/13/18 12/13/18 12/13/18 05:01 05:11 05:21 Temperature Pulse Rate 95 H 95 H 95 H Respiratory 30 H 30 H 30 H Rate Blood Pressure 90/23 91/18 81/18 O2 Sat by Pulse 92 90 91 Oximetry 12/13/18 12/13/18 12/13/18 05:31 05:41 05:51 Temperature Pulse Rate 94 H 97 H 95 H Respiratory 30 H 30 H 30 H Rate Blood Pressure 81/18 75/24 88/31 O2 Sat by Pulse 84 92 77 L Oximetry 12/13/18 12/13/18 12/13/18 06:01 06:11 06:21 Temperature Pulse Rate 96 H 96 H 95 H Respiratory 30 H 30 H 30 H Rate Blood Pressure 108/19 108/19 108/19 O2 Sat by Pulse 76 L 92 92 Oximetry 12/13/18 12/13/18 12/13/18 06:31 06:41 06:51 Temperature Pulse Rate 95 H 97 H 96 H Respiratory 30 H 30 H 30 H Rate Blood Pressure 113/23 94/14 88/18 O2 Sat by Pulse 95 89 92 Oximetry 12/13/18 12/13/18 12/13/18 07:01 07:11 07:21 Temperature Pulse Rate 95 H 96 H 95 H Respiratory 30 H 30 H 30 H Rate Blood Pressure 94/17 93/18 94/26 O2 Sat by Pulse 93 93 75 L Oximetry 12/13/18 12/13/18 12/13/18 07:31 07:41 07:51 Temperature Pulse Rate 95 H 93 H 94 H Respiratory 30 H 30 H 30 H Rate Blood Pressure 82/17 122/20 76/19 O2 Sat by Pulse 85 87 93 Oximetry 12/13/18 12/13/18 12/13/18 07:59 08:01 08:11 Temperature 97.5 F L Pulse Rate 95 H 94 H Respiratory 30 H 30 H Rate Blood Pressure 93/19 90/15 O2 Sat by Pulse 81 L 81 L Oximetry 12/13/18 12/13/18 12/13/18 08:21 08:31 08:41 Temperature Pulse Rate 95 H 93 H 93 H Respiratory 30 H 30 H 30 H Rate Blood Pressure 71/18 95/20 82/11 O2 Sat by Pulse 89 92 88 Oximetry 12/13/18 12/13/18 12/13/18 08:50 08:51 09:01 Temperature Pulse Rate 91 H 93 H 92 H Respiratory 30 H 30 H Rate Blood Pressure 108/15 112/11 99/27 O2 Sat by Pulse 92 91 92 Oximetry 12/13/18 12/13/18 12/13/18 09:11 09:21 09:31 Temperature Pulse Rate 93 H 92 H 94 H Respiratory 30 H 30 H 30 H Rate Blood Pressure 105/18 90/14 89/13 O2 Sat by Pulse 91 89 89 Oximetry 12/13/18 12/13/18 12/13/18 09:44 09:50 10:00 Temperature Pulse Rate 92 H 93 H 91 H Respiratory 30 H 30 H 30 H Rate Blood Pressure 62/19 103/16 O2 Sat by Pulse 89 90 88 Oximetry 12/13/18 12/13/18 12/13/18 10:10 10:20 10:30 Temperature Pulse Rate 91 H 91 H 92 H Respiratory 30 H 30 H 30 H Rate Blood Pressure 103/16 70/21 70/21 O2 Sat by Pulse 87 94 91 Oximetry 12/13/18 12/13/18 12/13/18 10:40 10:50 11:00 Temperature Pulse Rate 91 H 91 H 91 H Respiratory 30 H 30 H 30 H Rate Blood Pressure 73/15 96/78 78/20 O2 Sat by Pulse 87 92 90 Oximetry 12/13/18 12/13/18 12/13/18 11:04 11:10 11:20 Temperature Pulse Rate 92 H 91 H 91 H Respiratory 30 H 30 H Rate Blood Pressure 70/21 83/24 81/15 O2 Sat by Pulse 88 90 Oximetry 12/13/18 12/13/18 12/13/18 11:30 11:40 11:50 Temperature Pulse Rate 90 90 91 H Respiratory 30 H 30 H 20 Rate Blood Pressure 81/15 47/15 78/20 O2 Sat by Pulse 90 91 88 Oximetry 12/13/18 12/13/18 12/13/18 12:00 12:10 12:20 Temperature 96.5 F L Pulse Rate 89 88 89 Respiratory 30 H 29 H 30 H Rate Blood Pressure 92/14 92/14 50/10 O2 Sat by Pulse 88 88 89 Oximetry 12/13/18 12/13/18 12:30 12:40 Temperature Pulse Rate 89 89 Respiratory 30 H 30 H Rate Blood Pressure 69/26 81/15 O2 Sat by Pulse 88 90 Oximetry - Lab 12/13/18 08:35 12/13/18 08:35 Most recent lab results Calcium 7.6 mg/dL (8.4-10.2) L 12/13/18 08:35 Magnesium 1.20 mg/dL (1.7-2.3) L 12/12/18 06:30 Medications & Allergies - Medications Allergies/Adverse Reactions: Allergies No Known Allergies Allergy (Verified 12/07/18 22:19) Home Medications: Home Medications Medication Instructions Recorded Confirmed Last Taken Type tiZANidine [Zanaflex 4mg TAB] 4 mg PO DAILY 12/08/18 12/09/18 Unknown History traMADol [Ultram] 50 mg PO Q6HR PRN 12/08/18 12/09/18 Unknown History Cinacalcet HCl [Sensipar] 30 mg PO DAILY 12/09/18 12/09/18 Unknown History Cyclobenzaprine [Flexeril 10 MG 10 mg PO BID 12/09/18 12/09/18 Unknown History TAB] Gabapentin [Neurontin] 300 mg PO Q8HR 12/09/18 12/09/18 2 Days Ago History ~12/07/18 Hydrocodone-Acetamn 7.5-325/15 7.5 mg PO Q6H PRN 12/09/18 12/09/18 Unknown History Losartan Potassium 100 mg PO DAILY 12/09/18 12/09/18 Unknown History Active Medications: Generic Name Dose Route Start Last Admin Trade Name Freq PRN Reason Stop Dose Admin Acetaminophen 650 mg 12/08/18 01:14 12/11/18 05:02 Tylenol PO 650 mg Q4H PRN Administration Pain MILD(1-3)/Fever >100.5/GARCIA Acetaminophen/Hydrocodone Bitart 7.5 mg 12/09/18 11:51 12/10/18 09:42 [place] PO 7.5 mg Q6H PRN Administration Pain, Moderate (4-6) Albumin Human 25 gm 12/12/18 16:00 12/13/18 10:20 [place] 25% (Albumin) IV 12/13/18 22:01 25 gm Q6H LOBO Administration Cinacalcet 30 mg 12/10/18 10:00 12/13/18 11:05 Sensipar PO Not Given DAILY LOBO Cyclobenzaprine HCl 10 mg 12/09/18 22:00 12/13/18 11:05 Flexeril PO Not Given BID LOBO Dextrose 50 ml 12/12/18 23:17 12/13/18 08:03 D50w (25gm) Syringe IV 50 ml PRN PRN Administration Hypoglycemia Gabapentin 300 mg 12/09/18 14:00 12/13/18 06:25 Neurontin PO Not Given Q8HR LOBO Hydralazine HCl 5 mg 12/07/18 23:21 12/08/18 18:47 Apresoline IV 5 mg Q6H PRN Administration Hypertension Sodium Chloride 100 mls @ 999 mls/hr 12/07/18 23:20 Nacl 0.9% IV FARNAZ PRN Hypotension Sodium Bicarbonate 150 meq/ 1,150 mls @ 200 mls/hr 12/12/18 08:00 12/13/18 14:07 Dextrose IV 200 mls/hr DIRECT LOBO Administration Vasopressin 20 unit/ Sodium 101 mls @ 9.09 mls/hr 12/12/18 09:00 12/13/18 11:25 Chloride IV 0.03 units/min TITR LOBO 9.09 mls/hr Administration Protocol 0.03 UNITS/MIN Norepinephrine 4 mg in 250 mls @ 7.5 mls/hr 12/12/18 09:00 12/13/18 13:15 Levophed Drip 4 Mg/Ns 250 Ml IV 30 mcg/min TITR LOBO 112.5 mls/hr Administration Protocol 2 MCG/MIN Dopamine HCl/Dextrose 800 mg in 250 mls @ 4.778 mls/hr 12/12/18 07:00 12/13/18 14:47 Intropin Drip 800 Mg/D5w 250 Ml IV 20 mcg/kg/min TITR LOBO 47.775 mls/hr Administration Protocol 2 MCG/KG/MIN Epinephrine 8 mg/ Sodium 250 mls @ 3.75 mls/hr 12/12/18 11:00 12/13/18 09:21 Chloride IV 10 mcg/min TITR LOBO 18.75 mls/hr Administration Protocol 2 MCG/MIN Sodium Chloride 100 mls @ 999 mls/hr 12/12/18 10:59 Nacl 0.9% IV FARNAZ PRN Hypotension Pantoprazole Sodium 80 mg/ 100 mls @ 10 mls/hr 12/12/18 14:00 12/12/18 23:30 Sodium Chloride IV 8 mg/hr DIRECT LOBO 10 mls/hr Administration 8 MG/HR Phenylephrine HCl 100 mg/ 100 mls @ 3 mls/hr 12/12/18 15:45 12/13/18 13:03 Sodium Chloride IV 350 mcg/min TITR LOBO 21 mls/hr Administration Protocol 50 MCG/MIN Cefepime HCl 1 gm in 100 mls @ 200 mls/hr 12/12/18 18:00 12/12/18 18:03 Maxipime/Ns 1 Gm/100 Ml IV 200 mls/hr Q24H LOBO Administration Protocol Metronidazole 500 mg in 100 mls @ 100 mls/hr 12/12/18 17:00 12/13/18 11:04 Flagyl 500 Mg/100 Ml IV Not Given Q8H [facility] Protocol Lorazepam 2 mg 12/13/18 12:30 Ativan IV Q1H PRN anxiety/insomnia Losartan Potassium 50 mg 12/10/18 10:00 12/13/18 11:04 Cozaar PO Not Given QDAY [facility] Morphine Sulfate 2 mg 12/13/18 12:30 Morphine IV Q1H PRN mod pain or comfort measures Ondansetron HCl 4 mg 12/08/18 01:14 Zofran IV Q8H PRN Nausea And Vomiting Sodium Bicarbonate 50 meq 12/13/18 15:00 Sodium Bicarbonate 50meq Syringe IV 12/13/18 16:00 ONCE NR Sodium Chloride 10 ml 12/08/18 10:00 12/13/18 10:21 Sodium Chloride Flush Syringe 10 Ml IV 10 ml BID LOBO Administration Sodium Chloride 10 ml 12/08/18 01:14 Sodium Chloride Flush Syringe 10 Ml IV PRN PRN LINE FLUSH Tizanidine HCl 4 mg 12/10/18 10:00 12/13/18 11:05 Zanaflex PO Not Given DAILY [facility] Tramadol HCl 50 mg 12/09/18 11:25 12/10/18 21:42 Ultram PO 50 mg Q6HR PRN Administration Pain
--- NOTE | 2018-12-13 15:18 | Progress Note ---
Assessment and Plan Cultures: 12/08 BCX - Group C Strep /12/11 BCX- no growth today 12/12 Sputum poor specimen 12/12 BCX - pending A/P: 53 yo M PMHx HTN, DM2, ESRD on HD admitted with SOB and edema, found to be bacteremic. 1. Sepsis now s/p cardiac arrest on 12/12/2018: currently on 4 pressors. Initial sepsis secondary to Group C strep bacteremia - unclear source of bacteremia, possible from lungs via obscured pneumonia. Now on cefepime, metronidazole and vancomycina, 12/11 repeat blood culture no growth. TTE no valvular vegetation. EF 45-50. 2. Acute encephalopahty: ? hypoxic brain injury 3. Acute respiratory insufficiency: now intubated 4. Metabolic acidosis: elevated lactate from cardiac arrest 5. ESRD on HD: Status post placement of right common femoral vein vas cath on 12/11. He has an AVG which is thrombosed, will need to be surgically revised Recs: - continue cefepime, vancomycin and flagyl renally adjusted for now until a spiration pneumonia and bacteremia is ruled out D2 - f/u repeat blood cultures - patient is now DNR, family considering withdrawing care Grim prognosis. Dr Quintero is covering tomorrow Darcie Dumont MD [facility] ([facility]) Office [phone] Subjective Date of service: 12/13/18 Principal diagnosis: ESRD Interval history: Patient remains intubated unresponsive s/p cardiac arrest yesterday now on 4 pressors. Temp 97.5. Family at bedside. Objective - Exam Narrative Exam: Constitutional: unresponsive, intubated. Head, Ears, Nose: Normocephalic, atraumatic. External ears, nose normal Eyes: Conjunctivae/corneas clear. No icterus. No ptosis. pupils dilated bilater al non reactive Neck: Supple, no meningeal signs Oral: +ETT, OGT Cardiovascular: tachycardic Respiratory: Good air entry, clear to auscultation bilaterally GI: Soft, non-tender; bowel sounds normal. No peritoneal signs Musculoskeletal:zeny leg edema, right AVF nonfunctioning, +thrill Skin: No rash or abscess Hem/Lymphatic: No palpable cervical or supraclavicular nodes. No lymphangitis Psych: no agitation Neurological: unresponsive Right fem Vas cath - Constitutional Vitals: Vital Signs Temp Pulse Resp BP Pulse Ox 96.5 F L 88 30 H 152/101 88 12/13/18 12:00 12/13/18 14:50 12/13/18 14:50 12/13/18 14:30 12/13/18 14:50 Temperature -Last 24 Hours Temperature 96.5 F Temperature 97.5 F Temperature 98.7 F Temperature 98.6 F Temperature 98.6 F Temperature 98.5 F Temperature 98.5 F Temperature 98.0 F Temperature 98 F - Labs CBC & Chem 7: 12/13/18 08:35 12/13/18 08:35 Labs: Abnormal lab results 12/12/18 12/12/18 12/12/18 Range/Units 15:00 15:00 16:30 WBC 23.5 H (4.5-11.0) K/mm3 RBC (3.65-5.03) M/mm3 Hgb (11.8-15.2) gm/dl Hct (35.5-45.6) % MCV 105 H (84-94) fl MCHC 30 L (32-34) % RDW 18.4 H (13.2-15.2) % Plt Count 36 L (140-440) K/mm3 Seg Neuts % (Manual) 80.0 H (40.0-70.0) % Lymphocytes % (Manual) 12.0 L (13.4-35.0) % Seg Neutrophils # Man 18.8 H (1.8-7.7) K/mm3 Monocytes # (Manual) 1.2 H (0.0-0.8) K/mm3 PT (12.2-14.9) Sec. INR (0.87-1.13) Fibrinogen (211-480) mg/dl POC ABG pH (7.35-7.45) POC ABG pCO2 (35-45) POC ABG pO2 (80-105) Potassium 5.1 H (3.6-5.0) mmol/L Chloride 90.0 L (98-107) mmol/L Carbon Dioxide 10 L (22-30) mmol/L BUN 34 H (9-20) mg/dL Creatinine 8.2 H (0.8-1.5) mg/dL Glucose (75-100) mg/dL POC Glucose (70-105) Lactic Acid 23.20 H* (0.7-2.0) mmol/L Calcium 8.2 L (8.4-10.2) mg/dL Total Creatine Kinase (55-170) units/L 12/12/18 12/12/18 12/12/18 Range/Units 16:30 16:30 17:22 WBC (4.5-11.0) K/mm3 RBC (3.65-5.03) M/mm3 Hgb 11.7 L (11.8-15.2) gm/dl Hct (35.5-45.6) % MCV (84-94) fl MCHC (32-34) % RDW (13.2-15.2) % Plt Count (140-440) K/mm3 Seg Neuts % (Manual) (40.0-70.0) % Lymphocytes % (Manual) (13.4-35.0) % Seg Neutrophils # Man (1.8-7.7) K/mm3 Monocytes # (Manual) (0.0-0.8) K/mm3 PT 50.5 H (12.2-14.9) Sec. INR 5.66 H* (0.87-1.13) Fibrinogen (211-480) mg/dl POC ABG pH 7.035 L (7.35-7.45) POC ABG pCO2 30.2 L (35-45) POC ABG pO2 (80-105) Potassium (3.6-5.0) mmol/L Chloride (98-107) mmol/L Carbon Dioxide (22-30) mmol/L BUN (9-20) mg/dL Creatinine (0.8-1.5) mg/dL Glucose (75-100) mg/dL POC Glucose (70-105) Lactic Acid (0.7-2.0) mmol/L Calcium (8.4-10.2) mg/dL Total Creatine Kinase (55-170) units/L 12/12/18 12/12/18 12/12/18 Range/Units 19:54 23:21 23:22 WBC (4.5-11.0) K/mm3 RBC (3.65-5.03) M/mm3 Hgb (11.8-15.2) gm/dl Hct (35.5-45.6) % MCV (84-94) fl MCHC (32-34) % RDW (13.2-15.2) % Plt Count (140-440) K/mm3 Seg Neuts % (Manual) (40.0-70.0) % Lymphocytes % (Manual) (13.4-35.0) % Seg Neutrophils # Man (1.8-7.7) K/mm3 Monocytes # (Manual) (0.0-0.8) K/mm3 PT (12.2-14.9) Sec. INR (0.87-1.13) Fibrinogen (211-480) mg/dl POC ABG pH (7.35-7.45) POC ABG pCO2 (35-45) POC ABG pO2 (80-105) Potassium (3.6-5.0) mmol/L Chloride (98-107) mmol/L Carbon Dioxide (22-30) mmol/L BUN (9-20) mg/dL Creatinine (0.8-1.5) mg/dL Glucose (75-100) mg/dL POC Glucose < 40 L (70-105) Lactic Acid 26.30 H* 27.60 H* (0.7-2.0) mmol/L Calcium (8.4-10.2) mg/dL Total Creatine Kinase (55-170) units/L 12/13/18 12/13/18 12/13/18 Range/Units 00:20 00:20 01:05 WBC (4.5-11.0) K/mm3 RBC (3.65-5.03) M/mm3 Hgb (11.8-15.2) gm/dl Hct (35.5-45.6) % MCV (84-94) fl MCHC (32-34) % RDW (13.2-15.2) % Plt Count (140-440) K/mm3 Seg Neuts % (Manual) (40.0-70.0) % Lymphocytes % (Manual) (13.4-35.0) % Seg Neutrophils # Man (1.8-7.7) K/mm3 Monocytes # (Manual) (0.0-0.8) K/mm3 PT (12.2-14.9) Sec. INR (0.87-1.13) Fibrinogen (211-480) mg/dl POC ABG pH (7.35-7.45) POC ABG pCO2 (35-45) POC ABG pO2 (80-105) Potassium (3.6-5.0) mmol/L Chloride (98-107) mmol/L Carbon Dioxide (22-30) mmol/L BUN (9-20) mg/dL Creatinine (0.8-1.5) mg/dL Glucose (75-100) mg/dL POC Glucose 63 L (70-105) Lactic Acid 29.00 H* (0.7-2.0) mmol/L Calcium (8.4-10.2) mg/dL Total Creatine Kinase 2435 H (55-170) units/L 12/13/18 12/13/18 12/13/18 Range/Units 03:26 04:14 04:31 WBC (4.5-11.0) K/mm3 RBC (3.65-5.03) M/mm3 Hgb (11.8-15.2) gm/dl Hct (35.5-45.6) % MCV (84-94) fl MCHC (32-34) % RDW (13.2-15.2) % Plt Count (140-440) K/mm3 Seg Neuts % (Manual) (40.0-70.0) % Lymphocytes % (Manual) (13.4-35.0) % Seg Neutrophils # Man (1.8-7.7) K/mm3 Monocytes # (Manual) (0.0-0.8) K/mm3 PT (12.2-14.9) Sec. INR (0.87-1.13) Fibrinogen (211-480) mg/dl POC ABG pH 6.889 L 6.930 L (7.35-7.45) POC ABG pCO2 47.2 H (35-45) POC ABG pO2 52 L (80-105) Potassium (3.6-5.0) mmol/L Chloride (98-107) mmol/L Carbon Dioxide (22-30) mmol/L BUN (9-20) mg/dL Creatinine (0.8-1.5) mg/dL Glucose (75-100) mg/dL POC Glucose 57 L (70-105) Lactic Acid (0.7-2.0) mmol/L Calcium (8.4-10.2) mg/dL Total Creatine Kinase (55-170) units/L 12/13/18 12/13/18 12/13/18 Range/Units 04:55 05:52 06:38 WBC (4.5-11.0) K/mm3 RBC (3.65-5.03) M/mm3 Hgb (11.8-15.2) gm/dl Hct (35.5-45.6) % MCV (84-94) fl MCHC (32-34) % RDW (13.2-15.2) % Plt Count (140-440) K/mm3 Seg Neuts % (Manual) (40.0-70.0) % Lymphocytes % (Manual) (13.4-35.0) % Seg Neutrophils # Man (1.8-7.7) K/mm3 Monocytes # (Manual) (0.0-0.8) K/mm3 PT (12.2-14.9) Sec. INR (0.87-1.13) Fibrinogen (211-480) mg/dl POC ABG pH (7.35-7.45) POC ABG pCO2 (35-45) POC ABG pO2 (80-105) Potassium (3.6-5.0) mmol/L Chloride (98-107) mmol/L Carbon Dioxide (22-30) mmol/L BUN (9-20) mg/dL Creatinine (0.8-1.5) mg/dL Glucose (75-100) mg/dL POC Glucose 41 L 50 L (70-105) Lactic Acid 20.20 H* (0.7-2.0) mmol/L Calcium (8.4-10.2) mg/dL Total Creatine Kinase (55-170) units/L 12/13/18 12/13/18 12/13/18 Range/Units 07:52 08:10 08:35 WBC 27.9 H (4.5-11.0) K/mm3 RBC 2.89 L (3.65-5.03) M/mm3 Hgb 9.0 L (11.8-15.2) gm/dl Hct 32.0 L D (35.5-45.6) % MCV 111 H (84-94) fl MCHC 28 L (32-34) % RDW 19.9 H (13.2-15.2) % Plt Count 50 L (140-440) K/mm3 Seg Neuts % (Manual) 85.0 H (40.0-70.0) % Lymphocytes % (Manual) 8.0 L (13.4-35.0) % Seg Neutrophils # Man 23.7 H (1.8-7.7) K/mm3 Monocytes # (Manual) (0.0-0.8) K/mm3 PT (12.2-14.9) Sec. INR (0.87-1.13) Fibrinogen (211-480) mg/dl POC ABG pH (7.35-7.45) POC ABG pCO2 (35-45) POC ABG pO2 (80-105) Potassium (3.6-5.0) mmol/L Chloride (98-107) mmol/L Carbon Dioxide (22-30) mmol/L BUN (9-20) mg/dL Creatinine (0.8-1.5) mg/dL Glucose (75-100) mg/dL POC Glucose 60 L (70-105) Lactic Acid 28.20 H* (0.7-2.0) mmol/L Calcium (8.4-10.2) mg/dL Total Creatine Kinase (55-170) units/L 12/13/18 12/13/18 12/13/18 Range/Units 08:35 08:35 08:35 WBC (4.5-11.0) K/mm3 RBC (3.65-5.03) M/mm3 Hgb (11.8-15.2) gm/dl Hct (35.5-45.6) % MCV (84-94) fl MCHC (32-34) % RDW (13.2-15.2) % Plt Count (140-440) K/mm3 Seg Neuts % (Manual) (40.0-70.0) % Lymphocytes % (Manual) (13.4-35.0) % Seg Neutrophils # Man (1.8-7.7) K/mm3 Monocytes # (Manual) (0.0-0.8) K/mm3 PT 67.6 H (12.2-14.9) Sec. INR 8.01 H* (0.87-1.13) Fibrinogen 60 L* (211-480) mg/dl POC ABG pH (7.35-7.45) POC ABG pCO2 (35-45) POC ABG pO2 (80-105) Potassium (3.6-5.0) mmol/L Chloride 84.7 L (98-107) mmol/L Carbon Dioxide 8 L* (22-30) mmol/L BUN 32 H (9-20) mg/dL Creatinine 8.7 H (0.8-1.5) mg/dL Glucose 360 H (75-100) mg/dL POC Glucose (70-105) Lactic Acid (0.7-2.0) mmol/L Calcium 7.6 L (8.4-10.2) mg/dL Total Creatine Kinase (55-170) units/L
[2018-12-13 19:52] VITALS: BP 98/57
== END 2018-12-13 20:31 | DRG 853 ==
LOC: ED 20:19 → 4A 23:20 → CC1 12-12 06:15
PROVIDERS: ADMIT Internal Medicine; ATTEND Hospitalist
PROC: 5A1D70Z Performance of Urinary Filtration, Intermittent, Less than 6 Hours Per Day (ICD-10-PCS; 2018-12-08)
PROC: 5A1D70Z Performance of Urinary Filtration, Intermittent, Less than 6 Hours Per Day (ICD-10-PCS; 2018-12-09)
PROC: 4A033R1 Measurement of Arterial Saturation, Peripheral, Percutaneous Approach (ICD-10-PCS; 2018-12-10)
PROC: 037Y3ZZ Dilation of Upper Artery, Percutaneous Approach (ICD-10-PCS; principal; 2018-12-11)
PROC: 06HM33Z Insertion of Infusion Device into Right Femoral Vein, Percutaneous Approach (ICD-10-PCS; 2018-12-11)
PROC: B51W1ZZ Fluoroscopy of Dialysis Shunt/Fistula using Low Osmolar Contrast (ICD-10-PCS; 2018-12-11)
PROC: B54MZZA Ultrasonography of Right Upper Extremity Veins, Guidance (ICD-10-PCS; 2018-12-11)
PROC: 5A1D70Z Performance of Urinary Filtration, Intermittent, Less than 6 Hours Per Day (ICD-10-PCS; 2018-12-11)
PROC: 30233K1 Transfusion of Nonautologous Frozen Plasma into Peripheral Vein, Percutaneous Approach (ICD-10-PCS; 2018-12-12)
PROC: 5A12012 Performance of Cardiac Output, Single, Manual (ICD-10-PCS; 2018-12-12)
PROC: 5A1945Z Respiratory Ventilation, 24-96 Consecutive Hours (ICD-10-PCS; 2018-12-12)
PROC: 0BH17EZ Insertion of Endotracheal Airway into Trachea, Via Natural or Artificial Opening (ICD-10-PCS; 2018-12-12)
DX: A40.8 Other streptococcal sepsis (principal); N18.6 End stage renal disease; R65.21 Severe sepsis with septic shock; G93.41 Metabolic encephalopathy; I21.A1 Myocardial infarction type 2; J96.00 Acute respiratory failure, unspecified whether with hypoxia or hypercapnia; T82.590A Other mechanical complication of surgically created arteriovenous fistula, initial encounter; I12.0 Hypertensive chronic kidney disease with stage 5 chronic kidney disease or end stage renal disease; Z68.41 Body mass index [BMI] 40.0-44.9, adult; K92.2 Gastrointestinal hemorrhage, unspecified; D68.9 Coagulation defect, unspecified; Y83.2 Surgical operation with anastomosis, bypass or graft as the cause of abnormal reaction of the patient, or of later complication, without mention of misadventure at the time of the procedure; E11.22 Type 2 diabetes mellitus with diabetic chronic kidney disease; E87.70 Fluid overload, unspecified; E87.5 Hyperkalemia; D69.6 Thrombocytopenia, unspecified; E66.01 Morbid (severe) obesity due to excess calories; G47.30 Sleep apnea, unspecified; I16.0 Hypertensive urgency; Y92.89 Other specified places as the place of occurrence of the external cause; Z99.2 Dependence on renal dialysis; Z82.49 Family history of ischemic heart disease and other diseases of the circulatory system; Z83.3 Family history of diabetes mellitus; Z86.74 Personal history of sudden cardiac arrest
CPT/HCPCS: 36415; 36556; 36600; 36905; 71045; 74018; 76937; 80048; 80053; 80061; 80074; 80076; 82140; 82550; 82553; 82803; 82962; 83036; 83735; 84484; 85007; 85014; 85018; 85025; 85384; 85610; 86900; 86901; 87040; 87070; 87205; 93005; 93010; 93306; 93308; 93321; 93325; 94002; 94003; 94640; 94760; 96365; 96375; G0378; C1725; C1752; C1757; C1769; C1894; C9113; J0153; J0171; J0282; J0360; J0610; J0692; J0696; J1265; J1644; J1815; J1940; J1956; J2250; J2370; J3010; J3370; J3430; J3475; J7030; J7040; J7050; J7070; J7120; P9017; P9047; Q9967